=== PATIENT | male | born 1935 | race Caucasian/White ===

== ENCOUNTER 2017-02-25 11:52 | Inpatient (IN) | payer MEDICARE, BC ==
[2017-02-25] MEDS ORDERED: NORMAL SALINE 1000 ML 1,000 ML IV ONE (12:40)
--- NOTE | 2017-02-25 12:40 | ER Document Report ---
ED Cardiac - General Mode of Arrival: Medic Information source: Patient, Relative, Dr. Office - Dr. Rae TRAVEL OUTSIDE OF THE [place] IN LAST 30 DAYS: No - HPI Is the pain a: New problem Similar symptoms previously: No Recently seen / treated by doctor: No <PANCHITO ORTEGA - Last Filed: 02/25/17 12:55> <ASPENLINDA - Last Filed: 02/25/17 15:47> - General Chief Complaint: Irregular Pulse Stated Complaint: IRREGULAR HEART RATE Time Seen by Provider: 02/25/17 12:30 Notes: Patient is an 82 year old male presenting to the emergency department for new onset A-Fib. Patient was diagnosed with a sinus infection by Dr. Rae about a week ago, he was given a prescription Cefdinir which he filled last Wednesday. Patient then started having some lightheadedness and difficulty getting up without help this weekend. Patient had a follow-up appointment with Dr. Rae who discovered he was in A-fib. Patient was sent over the ED from the physician' s office. Patient is not on any blood thinners and takes lots of herbs, vitamins , and supplements. Patient has a history of chronic sinus problems with multiple sinus surgeries. Patient's primary care physician is Dr. Rae. ( PANCHITO ORTEGA) - Related Data Allergies/Adverse Reactions: No Known Allergies Allergy (Unverified 02/25/12 13:37) Past Medical History - General Information source: Patient, Relative - Social History Smoking Status: Former Smoker Cigarette use (# per day): No Chew tobacco use (# tins/day): No Drug Abuse: None Family History: None - Past Medical History Cardiac Medical History: Reports: Hx Atrial Fibrillation - 02/25/17, Hx Congestive Heart Failure, Hx Heart Attack, Hx Hypertension Pulmonary Medical History: Reports: Hx COPD Endocrine Medical History: Reports: Hx Diabetes Mellitus Type 2 Musculoskeltal Medical History: Reports 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 Past Surgical History: Reports: Hx Orthopedic Surgery - Left AKA - Immunizations Hx Diphtheria, Pertussis, Tetanus Vaccination: No <PANCHITO ORTEGA - Last Filed: 02/25/17 12:55> Review of Systems - Review of Systems Constitutional: No symptoms reported EENT: See HPI, Sinus pressure Cardiovascular: See HPI, Dizziness, Lightheaded Respiratory: No symptoms reported Gastrointestinal: No symptoms reported Genitourinary: No symptoms reported Male Genitourinary: No symptoms reported Musculoskeletal: No symptoms reported Skin: No symptoms reported Hematologic/Lymphatic: No symptoms reported Neurological/Psychological: No symptoms reported -: Yes All other systems reviewed and negative <PANCHITO ORTEGA - Last Filed: 02/25/17 12:55> Physical Exam - Vital signs Interpretation: Tachycardic - General General appearance: Appears well, Alert In distress: Mild - HEENT Head: Normocephalic, Atraumatic Eyes: Normal Pupils: PERRL Mucous membranes: Moist - Respiratory Respiratory status: No respiratory distress Chest status: Nontender Breath sounds: Normal Chest palpation: Normal - Cardiovascular Rhythm: Irregularly irregular, Tachycardia Heart sounds: Normal auscultation Murmur: No - Abdominal Inspection: Normal Distension: No distension Bowel sounds: Normal Tenderness: Nontender Organomegaly: No organomegaly - Back Back: Normal, Nontender - Extremities General upper extremity: Normal inspection, Normal ROM, Normal strength General lower extremity: Normal inspection, Normal ROM, Normal strength - Neurological Neuro grossly intact: Yes Cognition: Normal Orientation: AAOx4 [place] Coma Scale Eye Opening: Spontaneous [place] Coma Scale Verbal: Oriented [place] Coma Scale Motor: Obeys Commands [place] Coma Scale Total: 15 Speech: Normal - Psychological Associated symptoms: Normal affect, Normal mood - Skin Skin Temperature: Warm Skin Moisture: Dry <PANCHITO ORTEGA - Last Filed: 02/25/17 12:55> <ASPENLINDA - Last Filed: 02/25/17 15:47> - Vital signs Vitals: Resp 16 02/25/17 11:57 Course - Laboratory Result Diagrams: 02/25/17 14:50 02/25/17 12:44 - Diagnostic Test Radiology reviewed: Image reviewed, Reports reviewed - Chest x-ray is normal - EKG Interpretation by Pa EKG shows normal: Sinus rhythm, [place], QRS Complexes, ST-T Waves. abnormal: Intervals - Borderline prolonged QT interval Rate: Tachycardia - 123 Rhythm: A.Fib [place]/QRS: Left axis deviation When compared to previous EKG there are: Previous EKG unavailable - Consults Dr. Maloney Time consulted: 15:44 Consulted provider: will come to ER <LINDA LOUISE - Last Filed: 02/25/17 15:47> - Vital Signs Vital signs: Temp Pulse Resp BP Pulse Ox 100.0 F 104 H 25 H 114/70 94 02/25/17 11:58 02/25/17 11:58 02/25/17 14:01 02/25/17 14:01 02/25/17 11:58 - Laboratory Laboratory results interpreted by me: 02/25/17 02/25/17 02/25/17 12:44 13:35 14:50 WBC 3.5 L RBC 4.27 L Hgb 13.4 L Plt Count 40 L Seg Neutrophils % 90.3 H Lymphocytes % 5.5 L Absolute Lymphocytes 0.2 L Sodium 129.0 L Chloride 94 L BUN 22 H Direct Bilirubin 0.5 H AST 145 H ALT 90 H Creatine Kinase 393 H Albumin 3.4 L Urine Protein 100 H Urine Ketones TRACE H Urine Ascorbic Acid 40 H Critical Care Note - Critical Care Note Total time excluding time spent on procedures (mins): 35 <LINDA LOUISE - Last Filed: 02/25/17 15:47> Discharge <PANCHITO ORTEGA - Last Filed: 02/25/17 12:55> - Discharge Admitting Provider: Hospitalist Unit Admitted: IMCU <LINDA LOUISE - Last Filed: 02/25/17 15:47> - Discharge Clinical Impression: Atrial fibrillation, new onset, Atrial fibrillation with rapid ventricular response, Thrombocytopenia Hypotension Qualifiers: Hypotension type: unspecified hypotension type Qualified Code(s): I95.9 - Hypotension, unspecified Condition: Stable Disposition: ADMITTED INPATIENT Referrals: BREANNE RAE MD [Primary Care Provider] - Follow up as needed Scribe Attestation: 02/25/17 15:47 I personally performed the services described in the documentation, reviewed and edited the documentation which was dictated to the scribe in my presence, and it accurately records my words and actions. (LINDA LOUISE) Scribe Documentation - Scribe Written by Gay:: Gay Whaley, 02/25/17 12:57 acting as scribe for :: Aspen <PANCHITO ORTEGA - Last Filed: 02/25/17 12:55>
[2017-02-25] MEDS ORDERED: PANTOPRAZOLE SODIUM 40 MG VIAL IV ONE (12:42)
[2017-02-25 13:18] LABS: ALANINE AMINOTRANSFERASE 90 U/L (21-72); ALBUMIN 3.4 g/dL (3.5-5.0); ALKALINE PHOSPHATASE 74 U/L (38-126); ANION GAP 13 (5-19); ASPARTATE AMINO TRANSFERASE 145 U/L (17-59); BILIRUBIN,DIRECT 0.5 mg/dL (0.0-0.4); BILIRUBIN,TOTAL 0.8 mg/dL (0.2-1.3); BLOOD UREA NITROGEN 22 mg/dL (7-20); CARBON DIOXIDE 22 mmol/L (22-30); CHLORIDE 94 mmol/L (98-107); CREATINE KINASE 393 U/L (55-170); CREATININE RESULT 0.87 mg/dL (0.52-1.25); GLUCOSE 94 mg/dL (75-110); POTASSIUM 3.9 mmol/L (3.6-5.0); TOTAL PROTEIN 6.6 g/dL (6.3-8.2)
--- NOTE | 2017-02-25 13:43 | RADIOLOGY REPORT (SQ) ---
EXAM DESCRIPTION: CHEST SINGLE VIEW COMPLETED DATE/TIME: 02/25/2017 1:36 pm REASON FOR STUDY: new onset A-fib COMPARISON: 03/03/2009 EXAM PARAMETERS: NUMBER OF VIEWS: One view. TECHNIQUE: Single frontal radiographic view of the chest acquired. RADIATION DOSE: NA LIMITATIONS: None. FINDINGS: LUNGS AND PLEURA: No opacities, masses or pneumothorax. No pleural effusion. MEDIASTINUM AND HILAR STRUCTURES: No masses. Contour normal. HEART AND VASCULAR STRUCTURES: Heart normal in size. Normal vasculature. BONES: No acute findings. HARDWARE: None in the chest. OTHER: No other significant finding. IMPRESSION: NO ACUTE RADIOGRAPHIC FINDING IN THE CHEST. TECHNICAL DOCUMENTATION: JOB ID: [id number]
[2017-02-25 13:49] LABS: CREATINE KINASE MB 0.66 ng/mL (<4.55)
[2017-02-25 13:52] LABS: TROPONIN I 0.047 ng/mL
[2017-02-25 13:57] LABS: APPEARANCE,URINE CLOUDY; BILIRUBIN,URINE NEGATIVE (NEGATIVE); GLUCOSE, URINE NEGATIVE (NEGATIVE); KETONES,URINE TRACE mg/dL (NEGATIVE); LEUKOCYTE ESTERASE,URINE NEGATIVE (NEGATIVE); NITRITE,URINE NEGATIVE (NEGATIVE); PROTEIN,URINE 100 mg/dL (NEGATIVE); URINE SPECIFIC GRAVITY 1.025; UROBILINOGEN,URINE NEGATIVE mg/dL (<2.0)
[2017-02-25] MEDS ORDERED: RINGERS SOLUTION,LACTATED 1,000 ML IV ONE (14:22)
[2017-02-25] MEDS ORDERED: DILTIAZEM HCL INJ 25 MG/5 ML VIAL IV ONE (15:03)
[2017-02-25] MEDS ORDERED: DILTIAZEM HCL/D5W 125 ML IV PRN ×2 (15:04→17:59)
[2017-02-25 15:07] LABS: ABSOLUTE LYMPHOCYTES (AUTO) 0.2 10^3/uL (0.5-4.7); ABSOLUTE MONOCYTES (AUTO) 0.1 10^3/uL (0.1-1.4); ABSOLUTE NEUT (AUTO) 3.2 10^3/uL (1.7-8.2); BASOPHILS % (AUTO) 0.1 % (0-2); HEMATOCRIT 40.2 % (37.9-51.0); HEMOGLOBIN 13.4 g/dL (13.5-17.0); LYMPHOCYTES % (AUTO) 5.5 % (13-45); MEAN CORPUSCULAR HEMOGLOBIN 31.4 pg (27.0-33.4); MEAN CORPUSCULAR HGB CONC 33.4 g/dL (32.0-36.0); MEAN CORPUSCULAR VOLUME 94 fl (80-97); MONOCYTES % (AUTO) 4.1 % (3-13); RED BLOOD COUNT 4.27 10^6/uL (4.35-5.55); RED CELL DISTRIBUTION WIDTH 12.9 % (11.5-14.0); SEGMENTED NEUTROPHILS % (AUTO) 90.3 % (42-78); WHITE BLOOD COUNT 3.5 10^3/uL (4.0-10.5)
[2017-02-25] MEDS ORDERED: ACETAMINOPHEN 325 MG TABLET ONE (17:02)
[2017-02-25 17:16] LABS: HEMATOCRIT 38.7 % (37.9-51.0); HGB HCT DIFFERENCE 0.3; MEAN CORPUSCULAR HEMOGLOBIN 31.5 pg (27.0-33.4); MEAN CORPUSCULAR HGB CONC 33.6 g/dL (32.0-36.0); MEAN CORPUSCULAR VOLUME 94 fl (80-97); RED BLOOD COUNT 4.13 10^6/uL (4.35-5.55); RED CELL DISTRIBUTION WIDTH 12.5 % (11.5-14.0); WHITE BLOOD COUNT 3.3 10^3/uL (4.0-10.5)
[2017-02-25] MEDS ORDERED: NORMAL SALINE 1000 ML 1,000 ML IV PRN (17:44)
[2017-02-25] MEDS ORDERED: LEVALBUTEROL HCL NEB 1.25 MG/3 ML AMPUL NEB PRN (17:44)
[2017-02-25] MEDS ORDERED: ONDANSETRON HCL INJ/PF 4 MG/2 ML SDV IV PRN (17:52)
[2017-02-25] MEDS ORDERED: FONDAPARINUX SODIUM INJ 2.5 MG/0.5 ML DISP.SYRIN SUBCUT ONE (18:15)
[2017-02-25] MEDS ORDERED: DOXYCYCLINE HYCLATE INJ 100 MG VIAL IV SCH (18:15)
--- NOTE | 2017-02-25 18:21 | PDOC H&P ---
History of Present Illness Admission Date/PCP: 02/25/17 16:22 BREANNE ALY MD Patient complains of: Atrial fibrillation with rapid ventricular response History of Present Illness: JUDIE MOORE JR is a 82 year old male, with no significant past medical history who has been sick with sinus infection for the past week or so seen by primary care physician and given Omnicef. Symptoms include sinus congestion and minimal cough with some sinus pressure and headache. There is associated fever and chills but no chest congestion or shortness of breath. Family reports however that her breathing is fast about a week ago prior to antibiotic administration. The patient took the antibiotic and the sinus congestion improved and eventually resolved however the patient remains to be generally weak with lightheadedness especially upon standing. Denies any chest pain at all neurosyncope. No focal weakness nor any nausea or vomiting abdominal pain or diarrhea dysuria urgency or frequency. The patient was seen by EMS yesterday reportedly because spouse was concerned but the patient refused to go to the hospital. They were told that his heart rate was irregular at that time. Therefore an appointment was made with his primary care physician saw him in atrial fibrillation and was then sent to the hospital 2 L of IV fluid was infused, and Cardizem was started intravenously. Patient was having fever of 103 as well. He was then referred for admission. Past Medical History Cardiac Medical History: Denies: Coronary Artery Disease Pulmonary Medical History: Denies: Asthma, Bronchitis, Pneumonia Neurological Medical History: Denies: Seizures GI Medical History: Reports: Other - Diverticulosis Musculoskeltal Medical History: Reports: Arthritis - controlled in right shoulder Hematology: Denies: Anemia Infectious Medical History: Reports: Other - Recurrent sinusitis Past Surgical History Past Surgical History: Reports: Other - Abdominal surgery for ruptured peptic ulcer disease and multiple sinus surg Denies: Pacemaker Social History Information Source: Patient Smoking Status: Former Smoker Frequency of Alcohol Use: None Hx Recreational Drug Use: No Drugs: None Family History Family History: None Parental Family History Reviewed: Yes Children Family History Reviewed: Yes Sibling(s) Family History Reviewed.: Yes Medication/Allergy Home Medications: Cefdinir [Omnicef 300 mg Capsule] 300 mg PO Q12 02/25/17 Allergies/Adverse Reactions: No Known Allergies Allergy (Unverified 02/25/12 13:37) Review of Systems Constitutional: PRESENT: chills, fever(s), weakness - Generalized. ABSENT: headache(s), night sweats, weight gain, weight loss Eyes: ABSENT: visual disturbances Ears: ABSENT: hearing changes Nose, Mouth, and Throat: ABSENT: mouth pain, sore throat Cardiovascular: PRESENT: dyspnea on exertion. ABSENT: chest pain, edema, orthropnea, palpitations Respiratory: ABSENT: cough, dyspnea, hemoptysis, sputum Gastrointestinal: ABSENT: abdominal pain, constipation, diarrhea, hematemesis, hematochezia, melena, nausea, vomiting Genitourinary: ABSENT: dysuria, hematuria Musculoskeletal: ABSENT: joint swelling Integumentary: PRESENT: pruritus - On the abdominal wall, rash - On the abdominal wall. ABSENT: wounds Neurological: PRESENT: confusion - Mild according to the family. ABSENT: abnormal gait, abnormal speech, dizziness, focal weakness, syncope Psychiatric: ABSENT: anxiety, depression, homidical ideation, suicidal ideation Endocrine: ABSENT: cold intolerance, heat intolerance, polydipsia, polyuria Hematologic/Lymphatic: ABSENT: easy bleeding, easy bruising Physical Exam Vital Signs: Temp Pulse Resp BP Pulse Ox 97.6 F 91 19 120/88 H 97 02/25/17 17:58 02/25/17 17:58 02/25/17 17:58 02/25/17 17:58 02/25/17 17:58 Intake & Output 02/24/17 02/25/17 02/26/17 06:59 06:59 06:59 Weight 85.2 kg General appearance: PRESENT: no acute distress, cooperative, well-developed, well-nourished Head exam: PRESENT: atraumatic, normocephalic Eye exam: PRESENT: conjunctiva pink, EOMI, PERRLA. ABSENT: scleral icterus Ear exam: PRESENT: normal external ear exam. ABSENT: drainage Mouth exam: PRESENT: dry mucosa, neck supple, tongue midline Throat exam: ABSENT: post pharyngeal erythema, tonsillar erythema Neck exam: ABSENT: carotid bruit, JVD, lymphadenopathy, thyromegaly Respiratory exam: PRESENT: clear to auscultation madi. ABSENT: rales, rhonchi, wheezes Cardiovascular exam: PRESENT: irregular rhythm, tachycardia. ABSENT: diastolic murmur, gallop, rubs, systolic murmur Pulses: PRESENT: normal dorsalis pedis pul Vascular exam: PRESENT: normal capillary refill GI/Abdominal exam: PRESENT: normal bowel sounds, soft. ABSENT: distended, guarding, mass, organolmegaly, rebound, tenderness Rectal exam: PRESENT: deferred Extremities exam: PRESENT: full ROM. ABSENT: calf tenderness, clubbing, pedal edema Neurological exam: PRESENT: alert, awake, oriented to person, oriented to place , oriented to time, oriented to situation, CN II-XII grossly intact. ABSENT: motor sensory deficit Psychiatric exam: PRESENT: appropriate affect, normal mood. ABSENT: homicidal ideation, suicidal ideation Skin exam: PRESENT: dry, intact, rash - 2 about 4 cm circumferential rash noted on the abdominal wall that is a equal distribution in color with some midline induration and scaling, warm. ABSENT: cyanosis Results Laboratory Results: 02/25/17 16:58 02/25/17 16:58 WBC 3.3 L RBC 4.13 L Hgb 13.0 L Hct 38.7 MCV 94 MCH 31.5 MCHC 33.6 RDW 12.5 Plt Count 41 L Impressions: Chest X-Ray 02/25/17 12:40 IMPRESSION: NO ACUTE RADIOGRAPHIC FINDING IN THE CHEST. Assessment & Plan - Diagnosis (1) Atrial fibrillation with rapid ventricular response Is this a current diagnosis for this admission?: Yes (2) Thrombocytopenia Is this a current diagnosis for this admission?: Yes (3) Hyponatremia Is this a current diagnosis for this admission?: Yes (4) Fever Qualifiers: Fever type: unspecified Qualified Code(s): R50.9 - Fever, unspecified Is this a current diagnosis for this admission?: Yes (5) Abnormal urinalysis Is this a current diagnosis for this admission?: Yes (6) Diverticulosis Qualifiers: Diverticulosis site: unspecified location Diverticulosis bleeding: diverticulosis without bleeding Qualified Code(s): K57.90 - Diverticulosis of intestine, part unspecified, without perforation or abscess without bleeding Is this a current diagnosis for this admission?: Yes (7) Chronic sinusitis Qualifiers: Sinusitis location: unspecified location Qualified Code(s): J32.9 - Chronic sinusitis, unspecified Is this a current diagnosis for this admission?: Yes - Time Time Spent: 50 to 70 Minutes - Inpatient Certification Based on my medical assessment, after consideration of the patient's comorbidities, presenting symptoms, or acuity I expect that the services needed warrant INPATIENT care.: Yes I certify that my determination is in accordance with my understanding of Medicare's requirements for reasonable and necessary INPATIENT services [42 CFR 412.3e].: Yes Medical Necessity: Need For IV Fluids, Need For Continuous Telemetry Monitoring , Need for IV Antibiotics 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 We will hydrate the patient with normal saline. In the meantime I will begin the patient on intravenous doxycycline obtain cultures of the blood and urine. We will likewise obtain titers for [place] spotted fever as well as Lyme disease. We will continue the Cardizem drip and begin the patient on oral Cardizem. Obtain echocardiogram in the morning. DVT prophylaxis with Arixtra and monitor platelet count. We will consult hematology for further evaluation of thrombocytopenia. Further testing depends on the initial evaluations outlined above.
[2017-02-25 19:32] LABS: PROTHROMBIN TIME 15.4 SEC (11.4-15.4)
[2017-02-25 19:38] LABS: FREE T3 1.92 pg/mL (2.77-5.27)
[2017-02-25] MEDS: DILTIAZEM HCL 30 MG TABLET PO SCH ×2 (19:39→23:23)
[2017-02-25] MEDS: DOCUSATE SODIUM 100 MG CAPSULE PO SCH (19:39)
[2017-02-25] MEDS: DOXYCYCLINE HYCLATE 100 MG in DEXTROSE 5%-WATER 250 ML IV SCH (21:13)
--- NOTE | 2017-02-25 23:21 | RADIOLOGY REPORT (SQ) ---
EXAM DESCRIPTION: NM LUNG VENT/PERF SCAN COMPLETED DATE/TIME: 02/25/2017 11:13 pm REASON FOR STUDY: elev d dimer COMPARISON: None. RADIONUCLIDE AND DOSE: 5.38 millicuries TC-99m MAA Intravenous 32.0 millicuries TC-99m DTPA Inhaled aerosol TECHNIQUE: Eight views of the lungs acquired post ventilation of DTPA aerosol. Eight matching views of the lungs acquired following injection of MAA. LIMITATIONS: None. FINDINGS: VENTILATION: Symmetric and homogeneous distribution of DTPA aerosol during ventilatory pha se. No significant areas of photopenia. PERFUSION: Perfusion images with normal homogenous activity and no wedge-shaped or segmental defects. No ventilation-perfusion mismatches. OTHER: No other significant finding. IMPRESSION: NORMAL VENTILATION-PERFUSION LUNG SCAN. NEGATIVE FOR PULMONARY EMBOLI. TECHNICAL DOCUMENTATION: JOB ID: [id number] [employer]- All Rights Reserved
[2017-02-26 04:56] LABS: ANION GAP 9 (5-19); BLOOD UREA NITROGEN 18 mg/dL (7-20); CALCIUM 8.4 mg/dL (8.4-10.2); CARBON DIOXIDE 24 mmol/L (22-30); CHLORIDE 96 mmol/L (98-107); GLUCOSE 95 mg/dL (75-110); POTASSIUM 3.6 mmol/L (3.6-5.0); SODIUM 129.3 mmol/L (137-145)
[2017-02-26 04:58] LABS: ABSOLUTE LYMPHOCYTES (AUTO) 0.2 10^3/uL (0.5-4.7); ABSOLUTE MONOCYTES (AUTO) 0.2 10^3/uL (0.1-1.4); ABSOLUTE NEUT (AUTO) 2.5 10^3/uL (1.7-8.2); BASOPHILS % (AUTO) 0.3 % (0-2); HEMATOCRIT 36.9 % (37.9-51.0); HEMOGLOBIN 12.6 g/dL (13.5-17.0); HGB HCT DIFFERENCE 0.9; LYMPHOCYTES % (AUTO) 5.8 % (13-45); MEAN CORPUSCULAR HEMOGLOBIN 31.8 pg (27.0-33.4); MEAN CORPUSCULAR HGB CONC 34.1 g/dL (32.0-36.0); MEAN CORPUSCULAR VOLUME 93 fl (80-97); MONOCYTES % (AUTO) 5.3 % (3-13); RED BLOOD COUNT 3.96 10^6/uL (4.35-5.55); RED CELL DISTRIBUTION WIDTH 12.4 % (11.5-14.0); SEGMENTED NEUTROPHILS % (AUTO) 88.6 % (42-78); WHITE BLOOD COUNT 2.8 10^3/uL (4.0-10.5)
[2017-02-26] MEDS: LANSOPRAZOLE 30 MG TAB.RAP.DR PO SCH (05:19)
[2017-02-26] MEDS: DILTIAZEM HCL 30 MG TABLET PO SCH ×4 (05:19→23:59)
[2017-02-26] MEDS ORDERED: ENOXAPARIN SODIUM INJ 40 MG/0.4 ML DISP.SYRIN SUBCUT SCH (08:00)
--- NOTE | 2017-02-26 08:23 | PDOC PROGRESS REPORT ---
Subjective Progress Note for:: 02/26/17 Subjective:: Patient denies any complaints at this time. Denies any shortness of breath or chest pain. Denies chills or fever. Denies PND orthopnea. No nausea or vomiting. Physical Exam Vital Signs: Temp Pulse Resp BP Pulse Ox 97.4 F 116 H 21 H 120/66 95 02/26/17 04:00 02/26/17 04:00 02/26/17 04:00 02/26/17 04:00 02/26/17 04:00 Intake & Output 02/25/17 02/26/17 02/27/17 06:59 06:59 06:59 Intake Total 1271 Output Total 450 Balance 821 Weight 83.6 kg General appearance: PRESENT: no acute distress, cooperative Head exam: PRESENT: normocephalic Eye exam: PRESENT: EOMI Mouth exam: PRESENT: moist, neck supple Neck exam: ABSENT: JVD Respiratory exam: PRESENT: clear to auscultation madi. ABSENT: rhonchi, wheezes Cardiovascular exam: PRESENT: irregular rhythm, systolic murmur - Left sternal border. ABSENT: gallop GI/Abdominal exam: PRESENT: soft. ABSENT: distended, tenderness Extremities exam: ABSENT: pedal edema Neurological exam: PRESENT: alert, awake, oriented to situation Skin exam: PRESENT: dry, warm. ABSENT: cyanosis Results Laboratory Results: 02/26/17 04:11 02/26/17 04:11 02/25/17 02/26/17 02/26/17 18:47 04:11 04:11 WBC 2.8 L RBC 3.96 L Hgb 12.6 L Hct 36.9 L MCV 93 MCH 31.8 MCHC 34.1 RDW 12.4 Plt Count 31 L Seg Neutrophils % 88.6 H Lymphocytes % 5.8 L Monocytes % 5.3 Eosinophils % 0.0 Basophils % 0.3 Absolute Neutrophils 2.5 Absolute Lymphocytes 0.2 L Absolute Monocytes 0.2 Absolute Eosinophils 0.0 Absolute Basophils 0.0 Sodium 129.3 L Potassium 3.6 Chloride 96 L Carbon Dioxide 24 Anion Gap 9 BUN 18 Creatinine 0.70 Est GFR ( Amer) > 60 Est GFR (Non-Af Amer) > 60 Glucose 95 Calcium 8.4 Free T4 1.66 Free T3 pg/mL 1.92 L Impressions: Chest X-Ray 02/25/17 12:40 IMPRESSION: NO ACUTE RADIOGRAPHIC FINDING IN THE CHEST. Lung Scan-VQ NM 02/25/17 21:43 IMPRESSION: NORMAL VENTILATION-PERFUSION LUNG SCAN. NEGATIVE FOR PULMONARY EMBOLI. Assessment & Plan - Diagnosis (1) Atrial fibrillation with rapid ventricular response Is this a current diagnosis for this admission?: Yes (2) Thrombocytopenia Is this a current diagnosis for this admission?: Yes (3) Hyponatremia Is this a current diagnosis for this admission?: Yes (4) Fever Qualifiers: Fever type: unspecified Qualified Code(s): R50.9 - Fever, unspecified Is this a current diagnosis for this admission?: Yes (5) Abnormal urinalysis Is this a current diagnosis for this admission?: Yes (6) Diverticulosis Qualifiers: Diverticulosis site: unspecified location Diverticulosis bleeding: diverticulosis without bleeding Qualified Code(s): K57.90 - Diverticulosis of intestine, part unspecified, without perforation or abscess without bleeding Is this a current diagnosis for this admission?: Yes (7) Chronic sinusitis Qualifiers: Sinusitis location: unspecified location Qualified Code(s): J32.9 - Chronic sinusitis, unspecified Is this a current diagnosis for this admission?: Yes - Time Time Spent with patient: 25-34 minutes - Plan Summary Plan Summary: Consult cardiology for atrial fibrillation. Consult hematology for thrombocytopenia. We will continue to monitor. In the meantime I will hold the aspirin, increase her Cardizem and continue IV hydration. D-dimer was elevated but VQ scan was negative. We will obtain fibrin degradation products as well as fibrinogen. We will likewise obtain a lactic acid level.
--- NOTE | 2017-02-26 08:41 | PDOC CONSULTATION ---
Consultation Consult Date: 02/26/17 Attending physician:: ANNMARIE BARNES Consult reason:: Pancytopenia History of Present Illness Admission Date/PCP: 02/25/17 17:44 BREANNE ALY MD Patient complains of: Pancytopenia History of Present Illness: 82-year-old male with history of known cirrhosis, history of heavy alcohol abuse , who presents with fevers, also tic bite, and is currently on doxycycline in the hospital. He has had pancytopenia with a white count of 2.8, hemoglobin 13 , platelets today are 31. He is not actively bleeding. He has been on anticoagulation with aspirin as well as Arixtra here, but given the platelet count dropped we have told nursing to discontinue that. He is a poor historian , does not really remember all that much. He does seem a little bit confused today. I recommended nursing talk to hospitalist team about sending an ammonia level. 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 Hematology: Denies: Anemia Infectious Medical History: Reports: Other - Recurrent sinusitis Past Surgical History Past Surgical History: Reports: Orthopedic Surgery - Left AKA, Other - Abdominal surgery for ruptured peptic ulcer disease and multiple sinus surg Denies: Pacemaker Social History Information Source: [facility]LY [facility], [facility] Records Smoking Status: Former Smoker Last Time Smoked: 09/27/1986 Frequency of Alcohol Use: Occasional Hx Recreational Drug Use: No Drugs: None Hx Prescription Drug Abuse: No Family History Family History: None Parental Family History Reviewed: Yes Children Family History Reviewed: Yes Sibling(s) Family History Reviewed.: Yes Medication/Allergy Home Medications: Cefdinir [Omnicef 300 mg Capsule] 300 mg PO Q12 02/25/17 Allergies/Adverse Reactions: No Known Allergies Allergy (Unverified 02/25/12 13:37) Review of Systems Constitutional: ABSENT: chills, fever(s), headache(s), weight gain, weight loss Eyes: ABSENT: visual disturbances Ears: ABSENT: hearing changes Cardiovascular: ABSENT: chest pain, dyspnea on exertion, edema, orthropnea, palpitations Respiratory: ABSENT: cough, hemoptysis Gastrointestinal: ABSENT: abdominal pain, constipation, diarrhea, hematemesis, hematochezia, nausea, vomiting Genitourinary: ABSENT: dysuria, hematuria Musculoskeletal: ABSENT: joint swelling Integumentary: ABSENT: rash, wounds Neurological: ABSENT: abnormal gait, abnormal speech, confusion, dizziness, focal weakness, syncope Psychiatric: ABSENT: anxiety, depression, homidical ideation, suicidal ideation Endocrine: ABSENT: cold intolerance, heat intolerance, polydipsia, polyuria Hematologic/Lymphatic: ABSENT: easy bleeding, easy bruising Physical Exam Vital Signs: Temp Pulse Resp BP Pulse Ox 99.0 F 118 H 18 124/65 97 02/26/17 07:51 02/26/17 07:51 02/26/17 07:51 02/26/17 07:51 02/26/17 07:51 Intake & Output 02/25/17 02/26/17 02/27/17 06:59 06:59 06:59 Intake Total 1271 Output Total 450 Balance 821 Weight 83.6 kg General appearance: PRESENT: no acute distress, well-developed, well-nourished Head exam: PRESENT: atraumatic, normocephalic Eye exam: PRESENT: conjunctiva pink, EOMI, PERRLA. ABSENT: scleral icterus Ear exam: PRESENT: normal external ear exam Mouth exam: PRESENT: moist, tongue midline Neck exam: ABSENT: carotid bruit, JVD, lymphadenopathy, thyromegaly Respiratory exam: PRESENT: clear to auscultation madi. ABSENT: rales, rhonchi, wheezes Cardiovascular exam: PRESENT: RRR. ABSENT: diastolic murmur, rubs, systolic murmur Pulses: PRESENT: normal dorsalis pedis pul Vascular exam: PRESENT: normal capillary refill GI/Abdominal exam: PRESENT: normal bowel sounds, soft. ABSENT: distended, guarding, mass, organolmegaly, rebound, tenderness Rectal exam: PRESENT: deferred Extremities exam: PRESENT: full ROM. ABSENT: calf tenderness, clubbing, pedal edema Neurological exam: PRESENT: alert, awake, oriented to person, oriented to place , oriented to time, oriented to situation, CN II-XII grossly intact. ABSENT: motor sensory deficit Psychiatric exam: PRESENT: appropriate affect, normal mood. ABSENT: homicidal ideation, suicidal ideation Skin exam: PRESENT: dry, intact, warm. ABSENT: cyanosis, rash Results Laboratory Results: 02/26/17 04:11 02/26/17 04:11 02/25/17 02/26/17 02/26/17 18:47 04:11 04:11 WBC 2.8 L RBC 3.96 L Hgb 12.6 L Hct 36.9 L MCV 93 MCH 31.8 MCHC 34.1 RDW 12.4 Plt Count 31 L Seg Neutrophils % 88.6 H Lymphocytes % 5.8 L Monocytes % 5.3 Eosinophils % 0.0 Basophils % 0.3 Absolute Neutrophils 2.5 Absolute Lymphocytes 0.2 L Absolute Monocytes 0.2 Absolute Eosinophils 0.0 Absolute Basophils 0.0 Sodium 129.3 L Potassium 3.6 Chloride 96 L Carbon Dioxide 24 Anion Gap 9 BUN 18 Creatinine 0.70 Est GFR ( Amer) > 60 Est GFR (Non-Af Amer) > 60 Glucose 95 Calcium 8.4 Free T4 1.66 Free T3 pg/mL 1.92 L Impressions: Chest X-Ray 02/25/17 12:40 IMPRESSION: NO ACUTE RADIOGRAPHIC FINDING IN THE CHEST. Lung Scan-VQ NM 02/25/17 21:43 IMPRESSION: NORMAL VENTILATION-PERFUSION LUNG SCAN. NEGATIVE FOR PULMONARY EMBOLI. Assessment & Plan - Diagnosis (1) Pancytopenia Is this a current diagnosis for this admission?: YesPlan: Most likely related to cirrhosis, but also mild DIC may be possibility, at this point patient is not having active bleeding so hold on any platelet transfusion. If the platelets drop below 20 I will go ahead and order platelet transfusion. We have discontinued anticoagulation and they should remain off until platelet count gets up to 50. We will monitor. If ANC gets under 100 we will start him on growth factor support. - Time Time Spent: Greater than 70 Minutes Critical Time spent with patient: 35 or more minutes - Inpatient Certification Based on my medical assessment, after consideration of the patient's comorbidities, presenting symptoms, or acuity I expect that the services needed warrant INPATIENT care.: Yes I certify that my determination is in accordance with my understanding of Medicare's requirements for reasonable and necessary INPATIENT services [42 CFR 412.3e].: Yes Medical Necessity: Need For IV Fluids, Need For Continuous Telemetry Monitoring , Need for IV Antibiotics
--- NOTE | 2017-02-26 08:55 | EKG REPORT ---
SEVERITY:- ABNORMAL ECG - ATRIAL FIBRILLATION, V-RATE 77-163 LEFT AXIS DEVIATION BORDERLINE PROLONGED QT INTERVAL : Confirmed by: Kee Levin 26-Feb-2017 08:55:07
--- NOTE | 2017-02-26 08:55 | EKG REPORT ---
SEVERITY:- ABNORMAL ECG - ATRIAL FIBRILLATION, V-RATE 86-203 LEFT ANTERIOR FASCICULAR BLOCK BORDERLINE T ABNORMALITIES, ANT-LAT LEADS : Confirmed by: Kee Levin 26-Feb-2017 08:54:59
[2017-02-26] MEDS ORDERED: ASPIRIN 325 MG TABLET PO SCH (10:00)
[2017-02-26] MEDS ORDERED: FONDAPARINUX SODIUM INJ 2.5 MG/0.5 ML DISP.SYRIN SUBCUT SCH (10:00)
[2017-02-26] MEDS: DOCUSATE SODIUM 100 MG CAPSULE PO SCH ×2 (10:12→18:26)
[2017-02-26] MEDS: DOXYCYCLINE HYCLATE 100 MG in DEXTROSE 5%-WATER 250 ML IV SCH ×2 (10:13→21:02)
[2017-02-26] MEDS ORDERED: DILTIAZEM HCL INJ 25 MG/5 ML VIAL IV PRN (11:12)
--- NOTE | 2017-02-26 13:02 | PDOC CONSULTATION ---
Consultation Consult Date: 02/26/17 Attending physician:: ANNMARIE BARNES Consult reason:: Atrial fibrillation History of Present Illness Admission Date/PCP: 02/25/17 17:44 BREANNE ALY MD Patient complains of: Disorientation History of Present Illness: 82-year-old male with history of known cirrhosis, history of heavy alcohol abuse , who presents with fevers, also tic bite, and is currently on doxycycline in the hospital. Patient could not give any history therefore history was supplemented by talking to patients . It seems several days ago patient had a episode of disorientation and confusion. His symptoms were very similar to those symptoms which he had during a previous episode of septic shock. His called the EMT but he refused to go to the hospital. Patient subsequently went in to see his external relations director and was diagnosed to have sinusitis. Some lab work was performed which came back abnormal and patient was advised to get admitted through the emergency department. Patient while being monitored is noted to be in Atrial fibrillation with rapid ventricular response. He was treated initially with Iv cardiazem and was switched over to PO cardiazem. Patient denied any chest pain, shortness of breath, PND, orthopnea, Dizziness, syncope, near syncope. His subsequent bloodwork showed pancytopenia with a white count of 2.8, hemoglobin 13, platelets today are 31. He is not actively bleeding. He has been on anticoagulation with aspirin as well as Arixtra which was then discontinued. I've been asked to evaluate him because of Atrial fibrillation, which is presumably knew but could have been going on for last several weeks. 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 Hx Recreational Drug Use: No Drugs: None Hx Prescription Drug Abuse: No - Advance Directive Resuscitation Status: Full Code Surrogate healthcare decision maker:: Patient's is the surrogate decision-maker Family History Family History: None, Reviewed & Not Pertinent Parental Family History Reviewed: Yes Children Family History Reviewed: Yes Sibling(s) Family History Reviewed.: Yes Medication/Allergy Home Medications: Cefdinir [Omnicef 300 mg Capsule] 300 mg PO Q12 02/25/17 Allergies/Adverse Reactions: No Known Allergies Allergy (Unverified 02/25/12 13:37) Review of Systems Review of Systems: Constitutional: (+)fever, (-)night sweats, (-)chills, (+)fatigue, (-)daytime somnelence, (-)anorexia Eyes: (-)loss of vision, (-)diplopia, (-)eye redness, (-)eye pain, (-)purulent discharge Ears: (-)hearing loss, (-)ear pain/ear ache, (-)ear drainage Nose: (+)nasal congestion, (-)nasal discharge, (-)epistaxis, (+)snoring Mouth/Throat/Voice: (-)mouth sores, (-)tongue sores, (-)dysphagia, (-) odynophagia, (-)gum bleeding Neck: (-)neck stiffness, (-)neck lumps, (-)neck swelling Respiratory: (+)dyspnea, (-)cough, (-)cough productive of sputum, (-)hemoptysis , (-)wheezing Cardiovascular: (-)chest pain, (-)palpitations, (-)dyspnea at rest, (+)dyspnea with activity, (-)orthopnea, (-)paroxysmal nocturnal dyspnea, (-)lower extremity edema Gastrointestinal: (-)abdominal pain, (-)vomiting blood, (-)fecal incontinence, ( -)elyse-colored stools, (-)tarry stools Urinary: (-)dysuria, (-)hematuria, (-)increased nighttime urination Dermatologic/Integumentary: (-)dry skin, (-)rash, (-)bruising, (-)new mole(s) Musculoskeletal: (-)muscle weakness, (-)decreased muscle strength, (-)limb paralysis Neurological: (-)headaches, (-)fainting, (-)blackout(s), (-)lack of coordination , (-)difficulty speaking, (+)confusion Psychiatric: (-)sadness interfering with function, (+)sleep disturbance, (-) suicidal ideation, (-)delusions, (-)hallucinations Hematologic/Lymphatic: (-)easy bruising, (-)difficulty stopping blood flow, (-) lymph node enlargement, (-)lymph node tenderness Physical Exam Vital Signs: Temp Pulse Resp BP Pulse Ox 99.0 F 118 H 18 124/65 97 02/26/17 07:51 02/26/17 07:51 02/26/17 07:51 02/26/17 07:51 02/26/17 09:12 Intake & Output 02/25/17 02/26/17 02/27/17 06:59 06:59 06:59 Intake Total 1271 Output Total 450 Balance 821 Weight 83.6 kg Exam: GEN: NAD, patient alert oriented x3. Appearance and grooming WNL HEENT : Eyes: YAMIL, Ears: No significant abnormalities, Nose: No significant abnormalities. normocephalic atraumatic. ORAL : Mallampati class III, highly arched palate (-) Tonsils: Not enlarged. NECK: no thyromegaly, no masses, trachea is central, JVD is not elevated, carotids are 2+ with bruit (-) RESP: lungs clear to auscultation bilaterally, no rales, wheezes or rhonchi., nonlabored, no use of accessory muscles of respiration CV: NL S1 and S2. 2/6 ejection systolic murmur noted in the aortic area and left sternal border. 1/6 pansystolic murmur noted at the apex. no S3, no S4 noted. No rub noted., gallops, rubs, clicks GI: abd NT to palpation, no masses, bowel sounds present, no guarding or rigidity noted. EXT: no clubbing, (-) cyanosis, edema (-), perpheral pulses diminished (+) MUSC/SKEL: no acute joint swelling noted. Muscle strength is generally intact. NEURO: no tremors. no significant focal neurological deficits are noted., sensation grossly intact, AO x 3 PSYCH: NL mood and affect. judgment and insight noted to be intact.. SKIN: (+) rash, (-)Signs of pruritus, (-) other significant abnormality, rash - 2 about 4 cm circumferential rash noted on the abdominal wall that is a equal distribution in color with some midline induration and scaling, warm. Results Laboratory Results: 02/26/17 04:11 02/26/17 04:11 02/25/17 02/26/17 02/26/17 18:47 04:11 04:11 WBC 2.8 L RBC 3.96 L Hgb 12.6 L Hct 36.9 L MCV 93 MCH 31.8 MCHC 34.1 RDW 12.4 Plt Count 31 L Seg Neutrophils % 88.6 H Lymphocytes % 5.8 L Monocytes % 5.3 Eosinophils % 0.0 Basophils % 0.3 Absolute Neutrophils 2.5 Absolute Lymphocytes 0.2 L Absolute Monocytes 0.2 Absolute Eosinophils 0.0 Absolute Basophils 0.0 Sodium 129.3 L Potassium 3.6 Chloride 96 L Carbon Dioxide 24 Anion Gap 9 BUN 18 Creatinine 0.70 Est GFR ( Amer) > 60 Est GFR (Non-Af Amer) > 60 Glucose 95 Lactic Acid Calcium 8.4 Free T4 1.66 Free T3 pg/mL 1.92 L 02/26/17 08:41 WBC RBC Hgb Hct MCV MCH MCHC RDW Plt Count Seg Neutrophils % Lymphocytes % Monocytes % Eosinophils % Basophils % Absolute Neutrophils Absolute Lymphocytes Absolute Monocytes Absolute Eosinophils Absolute Basophils Sodium Potassium Chloride Carbon Dioxide Anion Gap BUN Creatinine Est GFR ( Amer) Est GFR (Non-Af Amer) Glucose Lactic Acid 2.2 H Calcium Free T4 Free T3 pg/mL EKG Comments: Showed Atrial fibrillation, rapid ventricular response, no acute ST-T Wave changes noted. Impressions: Chest X-Ray 02/25/17 12:40 IMPRESSION: NO ACUTE RADIOGRAPHIC FINDING IN THE CHEST. Lung Scan-VQ NM 02/25/17 21:43 IMPRESSION: NORMAL VENTILATION-PERFUSION LUNG SCAN. NEGATIVE FOR PULMONARY EMBOLI. Assessment & Plan - Diagnosis (1) Atrial fibrillation with rapid ventricular response Is this a current diagnosis for this admission?: Yes (2) Pancytopenia Is this a current diagnosis for this admission?: Yes (3) Chronic sinusitis Qualifiers: Sinusitis location: unspecified location Qualified Code(s): J32.9 - Chronic sinusitis, unspecified Is this a current diagnosis for this admission?: Yes (4) Hyponatremia Is this a current diagnosis for this admission?: Yes (5) Fever Qualifiers: Fever type: unspecified Qualified Code(s): R50.9 - Fever, unspecified Is this a current diagnosis for this admission?: Yes - Notes Notes: Atrial fibrillation with rapid ventricular response: at this point would recommend rate control with Cardizem PO. Also written orders for intravenous Cardizem on PRN basis for heart rate over 120 bpm. Feel that risk-benefit assessment did not favor Anticoagulation therapy's point because of thrombocytopenia, low chads score, however needs to be reassessed at a periodic basis. A 2-D echo is also pending and further decision about chronic anticoagulation will be made when that result is available. Febrile illness: Exact etiology not clear. Chest x-ray negative for CHF or infection. Blood culture results are pending. Urinalysis was negative for UTI. Hospital is trying to figure out the cause of it. However patient has been afebrile currently. Abnormal liver function test: possibly related to cirrhosis of liver, possible sepsis. Further evaluation may be needed. Pancytopenia: Exact etiology not clear but could be bone marrow suppression from alcohol/sepsis/other hematologic problem. Patient being evaluated by window cutter. Hyponatremia: continue with fluid restriction. I'll be off for the weekend. But will be available for phone support. - Time Time Spent: 30 to 50 Minutes Medications reviewed and adjusted accordingly: Yes
[2017-02-26 15:31] LABS: ARTERIAL BLOOD BASE EXCESS 1.5 mmol/L; ARTERIAL BLOOD O2 SATURATION 91.5 % (94-98)
--- NOTE | 2017-02-26 16:53 | XCELERA REPORT ---
[address] [address] Transthoracic Echocardiogram Report Name: JUDIE MOORE JR Age: 82 yrs Gender: Male : 1935 Patient Status: Inpatient Patient Location: [id number] Study Date: 02/26/2017 02:21 PM Height: 71 in Weight: 187 lb BSA: 2.0 m2 Procedure: A complete two-dimensional transthoracic echocardiogram was performed (2D, M-mode, spectral and color flow Doppler). The study was technically difficult with many images being suboptimal in quality. Reason For Study: atrial fibrillation Ordering Physician: ANNMARIE BARNES Performed By: Lilo Guerrero Interpretation Summary Due to the poor quality of the echocardiogram, an assessment of left ventricular ejection fraction cannot be made. Best estimate is 55-60%. LV diastolic function could not be adequately assessed due to atrial fibrilation. Regional wall motion abnormalities cannot be excluded due to limited visualization. There is borderline concentric left ventricular hypertrophy. The left ventricle is grossly normal size. The right ventricle is mildly dilated. The right atrium is normal in size The left atrium is mildly dilated. There is no mitral valve stenosis. There is a mild amount of mitral regurgitation There is no aortic valve stenosis No aortic regurgitation is present. There is a trace to mild amount of tricuspid regurgitation There is mild pulmonary hypertension by echo Best estimated right ventricular systolic pressure is elevated at 30- 40mmHg. The aortic root is not well visualized. The inferior vena cava was not well visualized Minimal pericardial effusion. MMode/2D Measurements \T\ Calculations RVDd: 3.4 cm LVIDd: 4.8 cm FS: 34.3 % Ao root diam: 3.5 cm IVSd: 0.99 cm LVIDs: 3.1 cm EDV(Teich): 107.1 ml LVPWd: 0.99 cm ESV(Teich): 39.3 ml Ao root area: 9.4 cm2 EF(Teich): 63.3 % LA dimension: 4.1 cm Doppler Measurements \T\ Calculations MV E max ari: MV P1/2t max ari: Ao V2 max: LV V1 max P.3 cm/sec 95.8 cm/sec 119.3 cm/sec 2.3 mmHg MV A max ari: MV P1/2t: 61.5 msec Ao max PG: LV V1 max: 50.8 cm/sec 5.7 mmHg 75.0 cm/sec MV E/A: 1.9 MVA(P1/2t): 3.6 cm2 MV dec slope: 456.2 cm/sec2 MV dec time: 0.21 sec PA V2 max: TR max ari: 100.7 cm/sec 272.8 cm/sec PA max PG: TR max P.8 mmHg 4.1 mmHg Left Ventricle The left ventricle is grossly normal size. There is borderline concentric left ventricular hypertrophy. Due to the poor quality of the echocardiogram, an assessment of left ventricular ejection fraction cannot be made. Best estimate is 55-60%. LV diastolic function could not be adequately assessed due to atrial fibrilation. Regional wall motion abnormalities cannot be excluded due to limited visualization. Right Ventricle The right ventricle is mildly dilated. There is normal right ventricular wall thickness. The right ventricular systolic function is normal. Atria The right atrium is normal in size. The left atrium is mildly dilated. Interarterial septum not well visualized and not well dopplered. Cannot comment on ASD/PFO presence. Mitral Valve There is mild mitral annular calcification. There is no mitral valve stenosis. There is a mild amount of mitral regurgitation. Aortic Valve The aortic valve is not well visualized secondary to technical limitations. The aortic valve opens well. There is no aortic valve stenosis. No aortic regurgitation is present. Tricuspid Valve The tricuspid valve is not well visualized secondary to technical limitations. There is no tricuspid stenosis. There is a trace to mild amount of tricuspid regurgitation. There is mild pulmonary hypertension by echo. Best estimated right ventricular systolic pressure is elevated at 30- 40mmHg. Pulmonic Valve The pulmonic valve is not well visualized. Great Vessels The aortic root is not well visualized. The inferior vena cava was not well visualized. Effusions Minimal pericardial effusion. : ANNMARIE BARNES > Kee Levin
[2017-02-26] MEDS: NORMAL SALINE 1000 ML 1,000 ML IV PRN (18:26)
[2017-02-26] MEDS: ACETAMINOPHEN 325 MG TABLET PO PRN (21:06)
[2017-02-27 05:24] LABS: ANION GAP 7 (5-19); BLOOD UREA NITROGEN 18 mg/dL (7-20); CALCIUM 8.4 mg/dL (8.4-10.2); CARBON DIOXIDE 25 mmol/L (22-30); CHLORIDE 97 mmol/L (98-107); CREATININE RESULT 0.67 mg/dL (0.52-1.25); GLUCOSE 85 mg/dL (75-110); POTASSIUM 3.5 mmol/L (3.6-5.0); SODIUM 129.4 mmol/L (137-145)
[2017-02-27 05:40] LABS: HEMOGLOBIN 13.2 g/dL (13.5-17.0); HGB HCT DIFFERENCE 0.6; MEAN CORPUSCULAR HEMOGLOBIN 31.9 pg (27.0-33.4); MEAN CORPUSCULAR HGB CONC 33.9 g/dL (32.0-36.0); MEAN CORPUSCULAR VOLUME 94 fl (80-97); RED BLOOD COUNT 4.14 10^6/uL (4.35-5.55); RED CELL DISTRIBUTION WIDTH 12.9 % (11.5-14.0); WHITE BLOOD COUNT 3.8 10^3/uL (4.0-10.5)
[2017-02-27] MEDS: DILTIAZEM HCL 30 MG TABLET PO SCH ×2 (05:47→13:00)
[2017-02-27] MEDS: LANSOPRAZOLE 30 MG TAB.RAP.DR PO SCH (05:47)
[2017-02-27] MEDS: DOCUSATE SODIUM 100 MG CAPSULE PO SCH ×2 (09:27→17:35)
[2017-02-27] MEDS: DOXYCYCLINE HYCLATE 100 MG in DEXTROSE 5%-WATER 250 ML IV SCH ×2 (09:27→23:05)
--- NOTE | 2017-02-27 10:51 | EKG REPORT ---
SEVERITY:- ABNORMAL ECG - ATRIAL FIBRILLATION, V-RATE 108-155 LEFT ANTERIOR FASCICULAR BLOCK BORDERLINE T ABNORMALITIES, ANT-LAT LEADS PROLONGED QT INTERVAL : Confirmed by: Kee Levin 27-Feb-2017 10:50:49
--- NOTE | 2017-02-27 11:06 | PDOC PROGRESS REPORT ---
Subjective Progress Note for:: 02/27/17 Subjective:: NO acute events overnight, less confused this am Physical Exam Vital Signs: Temp Pulse Resp BP Pulse Ox 97.6 F 81 18 96/53 L 95 02/27/17 08:27 02/27/17 08:27 02/27/17 08:27 02/27/17 08:27 02/27/17 08:27 Intake & Output 02/26/17 02/27/17 02/28/17 06:59 06:59 06:59 Intake Total 1271 2848 Output Total 450 1100 Balance 821 1748 Weight 83.6 kg 83.4 kg General appearance: PRESENT: no acute distress, well-developed, well-nourished Head exam: PRESENT: atraumatic, normocephalic Eye exam: PRESENT: conjunctiva pink, EOMI, PERRLA. ABSENT: scleral icterus Ear exam: PRESENT: normal external ear exam Mouth exam: PRESENT: moist, tongue midline Neck exam: ABSENT: carotid bruit, JVD, lymphadenopathy, thyromegaly Respiratory exam: PRESENT: clear to auscultation madi. ABSENT: rales, rhonchi, wheezes Cardiovascular exam: PRESENT: RRR. ABSENT: diastolic murmur, rubs, systolic murmur Pulses: PRESENT: normal dorsalis pedis pul Vascular exam: PRESENT: normal capillary refill GI/Abdominal exam: PRESENT: normal bowel sounds, soft. ABSENT: distended, guarding, mass, organolmegaly, rebound, tenderness Rectal exam: PRESENT: deferred Extremities exam: PRESENT: full ROM. ABSENT: calf tenderness, clubbing, pedal edema Neurological exam: PRESENT: alert, awake, oriented to person, oriented to place , oriented to time, oriented to situation, CN II-XII grossly intact. ABSENT: motor sensory deficit Psychiatric exam: PRESENT: appropriate affect, normal mood. ABSENT: homicidal ideation, suicidal ideation Skin exam: PRESENT: dry, intact, warm. ABSENT: cyanosis, rash Results Laboratory Results: 02/27/17 04:12 02/27/17 04:12 02/26/17 02/26/17 02/27/17 13:46 15:15 04:12 WBC 3.8 L RBC 4.14 L Hgb 13.2 L Hct 39.0 MCV 94 MCH 31.9 MCHC 33.9 RDW 12.9 Plt Count 32 L Carbonic Acid 0.97 L HCO3/H2CO3 Ratio 24:1 ABG pH 7.49 H ABG pCO2 32.3 L ABG pO2 55.5 L ABG HCO3 24.2 ABG O2 Saturation 91.5 L ABG Base Excess 1.5 FiO2 ROOMAIR Sodium Potassium Chloride Carbon Dioxide Anion Gap BUN Creatinine Est GFR ( Amer) Est GFR (Non-Af Amer) Glucose Lactic Acid 3.6 H Calcium 02/27/17 04:12 WBC RBC Hgb Hct MCV MCH MCHC RDW Plt Count Carbonic Acid HCO3/H2CO3 Ratio ABG pH ABG pCO2 ABG pO2 ABG HCO3 ABG O2 Saturation ABG Base Excess FiO2 Sodium 129.4 L Potassium 3.5 L Chloride 97 L Carbon Dioxide 25 Anion Gap 7 BUN 18 Creatinine 0.67 Est GFR ( Amer) > 60 Est GFR (Non-Af Amer) > 60 Glucose 85 Lactic Acid Calcium 8.4 Impressions: Chest X-Ray 02/25/17 12:40 IMPRESSION: NO ACUTE RADIOGRAPHIC FINDING IN THE CHEST. Lung Scan-VQ NM 02/25/17 21:43 IMPRESSION: NORMAL VENTILATION-PERFUSION LUNG SCAN. NEGATIVE FOR PULMONARY EMBOLI. Assessment & Plan - Diagnosis (1) Pancytopenia Is this a current diagnosis for this admission?: YesPlan: As noted prev, likely 2nd cirrhosis but some mild DIC also possible, con't holding all anticoagulants, hold on transfusion of plt unless pt w/ active bleeding, will probably have plt ct 40-60K chronically. - Time Time Spent with patient: 15-24 minutes Critical Time spent with patient: 15-24 minutes
--- NOTE | 2017-02-27 11:45 | PDOC PROGRESS REPORT ---
Subjective Progress Note for:: 02/27/17 Subjective:: Patient denies any chills or fever. Denies any shortness of breath or chest pain. Denies any diarrhea. There is no worsening on the rash noted. No chest pain diaphoresis nausea nor vomiting. Physical Exam Vital Signs: Temp Pulse Resp BP Pulse Ox 97.6 F 81 18 96/53 L 95 02/27/17 08:27 02/27/17 08:27 02/27/17 08:27 02/27/17 08:27 02/27/17 08:27 Intake & Output 02/26/17 02/27/17 02/28/17 06:59 06:59 06:59 Intake Total 1271 2848 Output Total 450 1100 Balance 821 1748 Weight 83.6 kg 83.4 kg General appearance: PRESENT: no acute distress, cooperative Head exam: PRESENT: normocephalic Eye exam: PRESENT: conjunctiva pink, EOMI Mouth exam: PRESENT: moist, neck supple Neck exam: ABSENT: JVD Respiratory exam: PRESENT: clear to auscultation madi, decreased breath sounds. ABSENT: rhonchi, wheezes Cardiovascular exam: PRESENT: irregular rhythm. ABSENT: gallop GI/Abdominal exam: PRESENT: hypoactive bowel sounds, soft. ABSENT: tenderness Extremities exam: ABSENT: pedal edema Neurological exam: PRESENT: alert, awake, oriented to situation Skin exam: PRESENT: dry, warm. ABSENT: cyanosis Results Laboratory Results: 02/27/17 04:12 02/27/17 04:12 02/26/17 02/26/17 02/27/17 13:46 15:15 04:12 WBC 3.8 L RBC 4.14 L Hgb 13.2 L Hct 39.0 MCV 94 MCH 31.9 MCHC 33.9 RDW 12.9 Plt Count 32 L Carbonic Acid 0.97 L HCO3/H2CO3 Ratio 24:1 ABG pH 7.49 H ABG pCO2 32.3 L ABG pO2 55.5 L ABG HCO3 24.2 ABG O2 Saturation 91.5 L ABG Base Excess 1.5 FiO2 ROOMAIR Sodium Potassium Chloride Carbon Dioxide Anion Gap BUN Creatinine Est GFR ( Amer) Est GFR (Non-Af Amer) Glucose Lactic Acid 3.6 H Calcium 02/27/17 04:12 WBC RBC Hgb Hct MCV MCH MCHC RDW Plt Count Carbonic Acid HCO3/H2CO3 Ratio ABG pH ABG pCO2 ABG pO2 ABG HCO3 ABG O2 Saturation ABG Base Excess FiO2 Sodium 129.4 L Potassium 3.5 L Chloride 97 L Carbon Dioxide 25 Anion Gap 7 BUN 18 Creatinine 0.67 Est GFR ( Amer) > 60 Est GFR (Non-Af Amer) > 60 Glucose 85 Lactic Acid Calcium 8.4 Impressions: Chest X-Ray 02/25/17 12:40 IMPRESSION: NO ACUTE RADIOGRAPHIC FINDING IN THE CHEST. Lung Scan-VQ NM 02/25/17 21:43 IMPRESSION: NORMAL VENTILATION-PERFUSION LUNG SCAN. NEGATIVE FOR PULMONARY EMBOLI. Assessment & Plan - Diagnosis (1) Atrial fibrillation with rapid ventricular response Is this a current diagnosis for this admission?: Yes (2) Thrombocytopenia Is this a current diagnosis for this admission?: Yes (3) Hyponatremia Is this a current diagnosis for this admission?: Yes (4) Fever Qualifiers: Fever type: unspecified Qualified Code(s): R50.9 - Fever, unspecified Is this a current diagnosis for this admission?: Yes (5) Abnormal urinalysis Is this a current diagnosis for this admission?: Yes (6) Diverticulosis Qualifiers: Diverticulosis site: unspecified location Diverticulosis bleeding: diverticulosis without bleeding Qualified Code(s): K57.90 - Diverticulosis of intestine, part unspecified, without perforation or abscess without bleeding Is this a current diagnosis for this admission?: Yes (7) Chronic sinusitis Qualifiers: Sinusitis location: unspecified location Qualified Code(s): J32.9 - Chronic sinusitis, unspecified Is this a current diagnosis for this admission?: Yes - Time Time Spent with patient: 25-34 minutes - Plan Summary Plan Summary: We are going to decrease the IV fluid rate. Blood pressure is in the low normal side. We will give digoxin in addition to Cardizem. Continue current antibiotics. Awaiting serologies.
[2017-02-27] MEDS: NORMAL SALINE 1000 ML 1,000 ML IV PRN (12:49)
[2017-02-27] MEDS ORDERED: DIGOXIN 0.25 MG TABLET PO SCH (13:45)
[2017-02-27] MEDS: ACETAMINOPHEN 325 MG TABLET PO PRN (15:24)
[2017-02-27] MEDS ORDERED: BISACODYL 10 MG SUPP.RECT PR ONE (20:00)
[2017-02-28] MEDS: NORMAL SALINE 1000 ML 1,000 ML IV PRN ×2 (03:16→17:38)
[2017-02-28] MEDS: LANSOPRAZOLE 30 MG TAB.RAP.DR PO SCH (05:36)
[2017-02-28] MEDS ORDERED: DILTIAZEM HCL 30 MG TABLET PO SCH ×2 (07:30→12:00)
[2017-02-28] MEDS ORDERED: DILTIAZEM HCL INJ 25 MG/5 ML VIAL IV PRN (08:12)
[2017-02-28] MEDS ORDERED: DILTIAZEM HCL 30 MG TABLET PO ONE (08:15)
--- NOTE | 2017-02-28 08:54 | PDOC PROGRESS REPORT ---
Subjective Progress Note for:: 02/28/17 Subjective:: The patient denies any shortness of breath, chest pain, PND orthopnea. No reported temperature spikes respiratory distress. Patient apparently is back to rapid atrial fibrillation. His Cardizem was held last night. He was placed on digoxin yesterday. Patient denies any diarrhea. Physical Exam Vital Signs: Temp Pulse Resp BP Pulse Ox 97.6 F 102 H 18 113/77 100 02/28/17 07:31 02/28/17 07:31 02/28/17 07:31 02/28/17 07:31 02/28/17 07:31 Intake & Output 02/27/17 02/28/17 03/01/17 06:59 06:59 06:59 Intake Total 2848 3474 Output Total 1100 1275 Balance 1748 2199 Weight 83.4 kg 87 kg General appearance: PRESENT: no acute distress, cooperative Head exam: PRESENT: normocephalic Eye exam: PRESENT: EOMI Mouth exam: PRESENT: moist, neck supple Neck exam: ABSENT: JVD Respiratory exam: PRESENT: clear to auscultation madi. ABSENT: rhonchi, wheezes Cardiovascular exam: PRESENT: irregular rhythm. ABSENT: gallop GI/Abdominal exam: PRESENT: soft. ABSENT: distended, tenderness Extremities exam: ABSENT: pedal edema Neurological exam: PRESENT: alert, awake, oriented to situation Skin exam: PRESENT: dry, warm. ABSENT: cyanosis Results Laboratory Results: 02/27/17 04:12 02/27/17 04:12 Impressions: Chest X-Ray 02/25/17 12:40 IMPRESSION: NO ACUTE RADIOGRAPHIC FINDING IN THE CHEST. Lung Scan-VQ NE 02/25/17 21:43 IMPRESSION: NORMAL VENTILATION-PERFUSION LUNG SCAN. NEGATIVE FOR PULMONARY EMBOLI. Assessment & Plan - Diagnosis (1) Atrial fibrillation with rapid ventricular response Is this a current diagnosis for this admission?: Yes (2) Thrombocytopenia Is this a current diagnosis for this admission?: Yes (3) Hyponatremia Is this a current diagnosis for this admission?: Yes (4) Fever Qualifiers: Fever type: unspecified Qualified Code(s): R50.9 - Fever, unspecified Is this a current diagnosis for this admission?: Yes (5) Abnormal urinalysis Is this a current diagnosis for this admission?: Yes (6) Diverticulosis Qualifiers: Diverticulosis site: unspecified location Diverticulosis bleeding: diverticulosis without bleeding Qualified Code(s): K57.90 - Diverticulosis of intestine, part unspecified, without perforation or abscess without bleeding Is this a current diagnosis for this admission?: Yes (7) Chronic sinusitis Qualifiers: Sinusitis location: unspecified location Qualified Code(s): J32.9 - Chronic sinusitis, unspecified Is this a current diagnosis for this admission?: Yes (8) Cirrhosis of liver Is this a current diagnosis for this admission?: Yes - Time Time Spent with patient: 25-34 minutes - Plan Summary Plan Summary: We will begin physical therapy. Resume oral Cardizem and as needed intravenous Cardizem. Continue digoxin and recheck level in the morning. Continue to monitor platelet count. Continue to monitor electrolytes. Continue current antibiotics and follow Lyme titer and [place] spotted fever titer.
[2017-02-28 09:48] LABS: ANION GAP 6 (5-19); BLOOD UREA NITROGEN 15 mg/dL (7-20); CALCIUM 8.4 mg/dL (8.4-10.2); CARBON DIOXIDE 26 mmol/L (22-30); CHLORIDE 97 mmol/L (98-107); CREATININE RESULT 0.68 mg/dL (0.52-1.25); GLUCOSE 115 mg/dL (75-110); POTASSIUM 3.5 mmol/L (3.6-5.0); SODIUM 128.9 mmol/L (137-145)
[2017-02-28] MEDS: DIGOXIN 0.25 MG TABLET PO SCH (09:53)
[2017-02-28] MEDS: DOXYCYCLINE HYCLATE 100 MG in DEXTROSE 5%-WATER 250 ML IV SCH ×2 (09:53→21:54)
[2017-02-28] MEDS: DOCUSATE SODIUM 100 MG CAPSULE PO SCH ×2 (09:53→17:27)
[2017-02-28] MEDS: ACETAMINOPHEN 325 MG TABLET PO PRN (11:36)
[2017-02-28] MEDS: DILTIAZEM HCL 30 MG TABLET PO SCH ×3 (11:40→23:42)
[2017-02-28] MEDS: POTASSI CL 20 MEQ/50 ML RIDER 20 MEQ/50 ML RTUPB IV SCH ×2 (17:28→19:31)
[2017-03-01] MEDS: DILTIAZEM HCL 30 MG TABLET PO SCH (05:14)
[2017-03-01] MEDS: LANSOPRAZOLE 30 MG TAB.RAP.DR PO SCH (05:14)
[2017-03-01] MEDS: NORMAL SALINE 1000 ML 1,000 ML IV PRN (05:15)
[2017-03-01 05:49] LABS: ANION GAP 6 (5-19); BLOOD UREA NITROGEN 12 mg/dL (7-20); CALCIUM 8.3 mg/dL (8.4-10.2); CARBON DIOXIDE 25 mmol/L (22-30); CHLORIDE 104 mmol/L (98-107); CREATININE RESULT 0.56 mg/dL (0.52-1.25); DIGOXIN 1.08 ng/mL (0.8-2.0); GLUCOSE 87 mg/dL (75-110); POTASSIUM 3.7 mmol/L (3.6-5.0); SODIUM 135.3 mmol/L (137-145)
[2017-03-01 06:21] LABS: HEMATOCRIT 39.5 % (37.9-51.0); HEMOGLOBIN 13.3 g/dL (13.5-17.0); HGB HCT DIFFERENCE 0.4; MEAN CORPUSCULAR HEMOGLOBIN 31.9 pg (27.0-33.4); MEAN CORPUSCULAR HGB CONC 33.7 g/dL (32.0-36.0); MEAN CORPUSCULAR VOLUME 95 fl (80-97); RED BLOOD COUNT 4.18 10^6/uL (4.35-5.55); RED CELL DISTRIBUTION WIDTH 13.1 % (11.5-14.0)
[2017-03-01 06:38] LABS: WHITE BLOOD COUNT 10.3 10^3/uL (4.0-10.5)
--- NOTE | 2017-03-01 08:40 | PDOC PROGRESS REPORT ---
Subjective Progress Note for:: 03/01/17 Subjective:: No acute events overnight Physical Exam Vital Signs: Temp Pulse Resp BP Pulse Ox 97.6 F 127 H 12 121/70 98 03/01/17 07:08 03/01/17 07:08 03/01/17 07:08 03/01/17 07:08 03/01/17 07:08 Intake & Output 02/28/17 03/01/17 03/02/17 06:59 06:59 06:59 Intake Total 3474 2991 Output Total 1275 2300 Balance 2199 691 Weight 87 kg 86 kg General appearance: PRESENT: no acute distress, well-developed, well-nourished Head exam: PRESENT: atraumatic, normocephalic Eye exam: PRESENT: conjunctiva pink, EOMI, PERRLA. ABSENT: scleral icterus Ear exam: PRESENT: normal external ear exam Mouth exam: PRESENT: moist, tongue midline Neck exam: ABSENT: carotid bruit, JVD, lymphadenopathy, thyromegaly Respiratory exam: PRESENT: clear to auscultation madi. ABSENT: rales, rhonchi, wheezes Cardiovascular exam: PRESENT: RRR. ABSENT: diastolic murmur, rubs, systolic murmur Pulses: PRESENT: normal dorsalis pedis pul Vascular exam: PRESENT: normal capillary refill GI/Abdominal exam: PRESENT: normal bowel sounds, soft. ABSENT: distended, guarding, mass, organolmegaly, rebound, tenderness Rectal exam: PRESENT: deferred Extremities exam: PRESENT: full ROM. ABSENT: calf tenderness, clubbing, pedal edema Neurological exam: PRESENT: alert, awake, oriented to person, oriented to place , oriented to time, oriented to situation, CN II-XII grossly intact. ABSENT: motor sensory deficit Psychiatric exam: PRESENT: appropriate affect, normal mood. ABSENT: homicidal ideation, suicidal ideation Skin exam: PRESENT: dry, intact, warm. ABSENT: cyanosis, rash Results Laboratory Results: 03/01/17 05:09 03/01/17 05:09 02/28/17 03/01/17 03/01/17 09:05 05:09 05:09 WBC 10.3 D RBC 4.18 L Hgb 13.3 L Hct 39.5 MCV 95 MCH 31.9 MCHC 33.7 RDW 13.1 Plt Count 50 L Sodium 128.9 L 135.3 L Potassium 3.5 L 3.7 Chloride 97 L 104 Carbon Dioxide 26 25 Anion Gap 6 6 BUN 15 12 Creatinine 0.68 0.56 Est GFR ( Amer) > 60 > 60 Est GFR (Non-Af Amer) > 60 > 60 Glucose 115 H 87 Calcium 8.4 8.3 L Impressions: Chest X-Ray 02/25/17 12:40 IMPRESSION: NO ACUTE RADIOGRAPHIC FINDING IN THE CHEST. Lung Scan-VQ NM 02/25/17 21:43 IMPRESSION: NORMAL VENTILATION-PERFUSION LUNG SCAN. NEGATIVE FOR PULMONARY EMBOLI. Assessment & Plan - Diagnosis (1) Pancytopenia Is this a current diagnosis for this admission?: YesPlan: Likely secondary to cirrhosis, no further evaluation needed, patient probably at baseline with platelet count. Would not recommend any anticoagulation, I believe the risks would outweigh the benefits from it. Will sign off, thank you for the opportunity to assist in this patient's care please call with any questions. - Time Time Spent with patient: 15-24 minutes Critical Time spent with patient: 15-24 minutes
[2017-03-01] MEDS: DIGOXIN 0.25 MG TABLET PO SCH (09:17)
[2017-03-01] MEDS: DOCUSATE SODIUM 100 MG CAPSULE PO SCH ×2 (09:17→17:23)
[2017-03-01] MEDS: DOXYCYCLINE HYCLATE 100 MG in DEXTROSE 5%-WATER 250 ML IV SCH (09:18)
[2017-03-01] MEDS: ACETAMINOPHEN 325 MG TABLET PO PRN ×2 (09:59→17:25)
[2017-03-01] MEDS ORDERED: NORMAL SALINE 1000 ML 1,000 ML IV PRN (10:28)
[2017-03-01] MEDS ORDERED: ONDANSETRON HCL INJ/PF 4 MG/2 ML SDV IV PRN (10:36)
--- NOTE | 2017-03-01 10:37 | PDOC PROGRESS REPORT ---
Subjective Progress Note for:: 03/01/17 Subjective:: Patient denies any shortness of breath, PND, orthopnea. Denies any chest pain at all. No chills or fever. No diarrhea. Patient's heart rate better upon resumption of Cardizem. Hold parameters were given. Patient able to ambulate with physical therapy without any dizziness. Heart rate however still uncontrolled. Physical Exam Vital Signs: Temp Pulse Resp BP Pulse Ox 97.6 F 127 H 12 121/70 98 03/01/17 07:08 03/01/17 07:08 03/01/17 07:08 03/01/17 07:08 03/01/17 07:08 Intake & Output 02/28/17 03/01/17 03/02/17 06:59 06:59 06:59 Intake Total 3474 2991 Output Total 1275 2300 Balance 2199 691 Weight 87 kg 86 kg General appearance: PRESENT: no acute distress, cooperative Head exam: PRESENT: normocephalic Eye exam: PRESENT: EOMI Mouth exam: PRESENT: moist, neck supple Neck exam: ABSENT: JVD Respiratory exam: PRESENT: clear to auscultation madi. ABSENT: rhonchi, wheezes Cardiovascular exam: PRESENT: irregular rhythm. ABSENT: gallop GI/Abdominal exam: PRESENT: normal bowel sounds, soft. ABSENT: distended, tenderness Extremities exam: ABSENT: pedal edema Neurological exam: PRESENT: alert, awake, oriented to person, oriented to place , oriented to time, oriented to situation Skin exam: PRESENT: dry, warm. ABSENT: cyanosis Results Laboratory Results: 03/01/17 05:09 03/01/17 05:09 03/01/17 03/01/17 05:09 05:09 WBC 10.3 D RBC 4.18 L Hgb 13.3 L Hct 39.5 MCV 95 MCH 31.9 MCHC 33.7 RDW 13.1 Plt Count 50 L Sodium 135.3 L Potassium 3.7 Chloride 104 Carbon Dioxide 25 Anion Gap 6 BUN 12 Creatinine 0.56 Est GFR ( Amer) > 60 Est GFR (Non-Af Amer) > 60 Glucose 87 Calcium 8.3 L Impressions: Chest X-Ray 02/25/17 12:40 IMPRESSION: NO ACUTE RADIOGRAPHIC FINDING IN THE CHEST. Lung Scan-VQ NM 02/25/17 21:43 IMPRESSION: NORMAL VENTILATION-PERFUSION LUNG SCAN. NEGATIVE FOR PULMONARY EMBOLI. Assessment & Plan - Diagnosis (1) Atrial fibrillation with rapid ventricular response Is this a current diagnosis for this admission?: Yes (2) Thrombocytopenia Is this a current diagnosis for this admission?: Yes (3) Hyponatremia Is this a current diagnosis for this admission?: Yes (4) Fever Qualifiers: Fever type: unspecified Qualified Code(s): R50.9 - Fever, unspecified Is this a current diagnosis for this admission?: Yes (5) Abnormal urinalysis Is this a current diagnosis for this admission?: Yes (6) Diverticulosis Qualifiers: Diverticulosis site: unspecified location Diverticulosis bleeding: diverticulosis without bleeding Qualified Code(s): K57.90 - Diverticulosis of intestine, part unspecified, without perforation or abscess without bleeding Is this a current diagnosis for this admission?: Yes (7) Chronic sinusitis Qualifiers: Sinusitis location: unspecified location Qualified Code(s): J32.9 - Chronic sinusitis, unspecified Is this a current diagnosis for this admission?: Yes (8) Cirrhosis of liver Is this a current diagnosis for this admission?: Yes - Time Time Spent with patient: 25-34 minutes - Plan Summary Plan Summary: We will continue oral Cardizem and digoxin. Case discussed with cardiology service. We will add low-dose metoprolol at 12.5 mg p.o. twice a day hopefully his heart rate get better controlled and can be discharged in the morning. In the meantime I will discontinue intravenous antibiotics and she is to oral. Follow titers of Lyme and are RMSF. Continue supportive care.
[2017-03-01] MEDS ORDERED: METOPROLOL TARTRATE 25 MG TABLET PO ONE (11:30)
[2017-03-01] MEDS: DILTIAZEM HCL 60 MG TABLET PO SCH ×2 (11:53→17:23)
--- NOTE | 2017-03-01 21:15 | EKG REPORT ---
SEVERITY:- ABNORMAL ECG - ATRIAL FIBRILLATION LEFT ANTERIOR FASCICULAR BLOCK ABNRM R PROG, CONSIDER ASMI OR LEAD PLACEMENT PROLONGED QT INTERVAL : Confirmed by: Kee Levin 01-Mar-2017 21:15:16
[2017-03-01] MEDS: METOPROLOL TARTRATE 25 MG TABLET PO SCH (21:32)
[2017-03-01] MEDS: DOXYCYCLINE HYCLATE 100 MG TABLET PO SCH (21:32)
[2017-03-01] MEDS: SODIUM CHLORIDE 5% OPH SOLN 15 ML OU PRN (21:33)
[2017-03-02] MEDS: DILTIAZEM HCL 60 MG TABLET PO SCH ×2 (01:17→06:11)
[2017-03-02] MEDS: SODIUM CHLORIDE 5% OPH SOLN 15 ML OU PRN ×2 (03:42→08:59)
[2017-03-02] MEDS: LANSOPRAZOLE 30 MG TAB.RAP.DR PO SCH (06:12)
[2017-03-02] MEDS: ACETAMINOPHEN 325 MG TABLET PO PRN (08:08)
--- NOTE | 2017-03-02 09:31 | PDOC PROGRESS REPORT ---
Subjective Progress Note for:: 03/01/17 Subjective:: Patient seems to be doing better with gradual improvement. Pt is denying any chest arm or neck discomfort. Patient denying any PND, orthopnea. Patient denied any sustained palpitations, dizziness, syncope, near syncope. Patient denying any fever chills. Patient denying any other significant discomfort. Patient is maintaining atrial fibrillation but heart rate is better controlled. Review of systems: Rest review of systems negative. Medications: Medications have been reviewed. Physical Exam Vital Signs: Temp Pulse Resp BP Pulse Ox 97.9 F 74 16 98/62 L 100 03/01/17 15:16 03/01/17 15:16 03/01/17 15:16 03/01/17 15:16 03/01/17 15:16 Intake & Output 02/28/17 03/01/17 03/02/17 06:59 06:59 06:59 Intake Total 3474 2991 1526 Output Total 1275 2300 1020 Balance 2199 691 506 Weight 87 kg 86 kg Exam: GENERAL: well-nourished and in no acute distress. Alert and oriented x3 HEAD: Atraumatic, normocephalic. EYES: Pupils equal round and reactive to light, extraocular movements intact, sclera anicteric, conjunctiva are normal. ENT: TMs normal, nares patent, oropharynx clear without exudates. Moist mucous membranes. No oral ulcerations or bleeding gums noted NECK: supple without lymphadenopathy. Trachea is central. No cervical or axillary lymphadenopathy noted. Carotids are 2+, JVD WNL LUNGS: Respiration seems nonlabored, no significant accessory muscle action noted. Breath sounds clear to auscultation bilaterally and equal noted. No wheezes rales or rhonchi noted. No significant dullness noted on percussion. CHEST: Palpation of the chest wall shows no significant chest wall tenderness. No other significant abnormalities noted. HEART: [facility] [employer], No PSH, 1/6 MICHAEL aortic area, 1/6 charles systolic murmur mitral area, no rubs, no gallops. ABDOMEN: Soft, no significant tenderness appreciated, normoactive bowel sounds. No guarding, no rebound. No rigidity noted . No masses appreciated. EXTREMITIES: Pedal pulses are 1-2+, no calf tenderness noted. No clubbing or cyanosis.trace to 1+ pedal edema noted NEUROLOGICAL: Focused neurological exam showed no significant neurologic deficit. Normal speech, no focal weakness appreciated. PSYCH: Normal mood, normal affect. Judgment and insight within normal limits. SKIN: No significant ecchymosis, rash, ulcerations or signs of pruritus noted. MUSCULOSKELETAL EXAM: No significant joint swelling noted. Results Laboratory Results: 03/01/17 05:09 03/01/17 05:09 03/01/17 03/01/17 05:09 05:09 WBC 10.3 D RBC 4.18 L Hgb 13.3 L Hct 39.5 MCV 95 MCH 31.9 MCHC 33.7 RDW 13.1 Plt Count 50 L Sodium 135.3 L Potassium 3.7 Chloride 104 Carbon Dioxide 25 Anion Gap 6 BUN 12 Creatinine 0.56 Est GFR ( Amer) > 60 Est GFR (Non-Af Amer) > 60 Glucose 87 Calcium 8.3 L Impressions: Chest X-Ray 02/25/17 12:40 IMPRESSION: NO ACUTE RADIOGRAPHIC FINDING IN THE CHEST. Lung Scan-VQ NM 02/25/17 21:43 IMPRESSION: NORMAL VENTILATION-PERFUSION LUNG SCAN. NEGATIVE FOR PULMONARY EMBOLI. Assessment & Plan - Diagnosis (1) Atrial fibrillation with rapid ventricular response Is this a current diagnosis for this admission?: Yes (2) Pancytopenia Is this a current diagnosis for this admission?: Yes (3) Chronic sinusitis Qualifiers: Sinusitis location: unspecified location Qualified Code(s): J32.9 - Chronic sinusitis, unspecified Is this a current diagnosis for this admission?: Yes (4) Hyponatremia Is this a current diagnosis for this admission?: Yes (5) Fever Qualifiers: Fever type: unspecified Qualified Code(s): R50.9 - Fever, unspecified Is this a current diagnosis for this admission?: Yes - Notes Notes: Atrial fibrillation with rapid ventricular response: Heart rate response was noted to be high this morning. After discussion with hospitalist, the hospitalist added metoprolol tartrate with better control of heart rate. Feel that risk-benefit assessment did not favor Anticoagulation therapy's point because of thrombocytopenia, low chads score, however needs to be reassessed at a periodic basis. Febrile illness: Patient has been afebrile currently. Abnormal liver function test: possibly related to cirrhosis of liver, possible sepsis. Further evaluation may be needed. Pancytopenia: Exact etiology not clear but could be bone marrow suppression from alcohol/sepsis/other hematologic problem. Patient had evaluation by a cake icer who feels that pancytopenia most likely related to liver problems. Hyponatremia: continue with fluid restriction. Serum sodium has shown improvement. - Time Time with patient: 15-25 minutes - CODE STATUS was discussed, patient remains full code. Surrogate decision-maker unchanged. Multiple medical problems were addressed. More than 50% of the time spent coordinating care, discussing management plans with involved caregivers. Management plans discussed with involved personnels. Medical decision making was of moderate to high complexity , patient's has multiple comorbidities. Medications reviewed and adjusted accordingly: Yes
[2017-03-02] MEDS: DOCUSATE SODIUM 100 MG CAPSULE PO SCH (09:47)
[2017-03-02] MEDS: METOPROLOL TARTRATE 25 MG TABLET PO SCH (09:48)
[2017-03-02] MEDS: DOXYCYCLINE HYCLATE 100 MG TABLET PO SCH (09:49)
[2017-03-02] MEDS: DIGOXIN 0.25 MG TABLET PO SCH (09:49)
[2017-03-02] MEDS ORDERED: DILTIAZEM HCL 240 MG CAPSULE.CR PO ONE (10:00)
[2017-03-02 10:26] VITALS: BP 108/65
--- NOTE | 2017-03-02 11:46 | PDOC DISCHARGE SUMMARY ---
General - Admit/Disc Date/PCP Admission Date/Primary Care Provider: 02/25/17 17:44 BREANNE ALY MD Discharge Date: 03/02/17 - Discharge Diagnosis (1) [place] spotted fever Is this a current diagnosis for this admission?: YesSummary: Patient had tick bites previous to this admission. Positive for IgM for [place] spotted fever. Treated with doxycycline. Sent home with a total of 14 days of doxycycline. (2) Atrial fibrillation with rapid ventricular response Is this a current diagnosis for this admission?: YesSummary: Patient still in atrial fibrillation but rate controlled. Sent home on diltiazem, metoprolol, digoxin. (3) Hyponatremia Is this a current diagnosis for this admission?: YesSummary: Most likely secondary to the acute illness. (4) Thrombocytopenia Is this a current diagnosis for this admission?: YesSummary: Most likely secondary to [place] spotted fever - Additional Information Resuscitation Status: Full Code Discharge Diet: Cardiac Discharge Activity: Activity As Tolerated Home Medications: Ascorbic Acid [Vitamin C 500 mg Tablet] 500 mg PO DAILY 02/26/17 Biotin [Biotin 5 mg Tablet] 5 mg PO DAILY 02/26/17 Calcium Carbonate [Calcium] 1,500 mg PO DAILY 02/26/17 Cayenne [Cayenne 450 mg Capsule] 450 mg PO DAILY 02/26/17 Cholecalciferol (Vitamin D3) [Vitamin D3 1000 Unit Tablet] 1,000 unit PO DAILY 02/26/17 Cranberry Extract [Cranberry 200 mg Capsule] 200 mg PO DAILY 02/26/17 Garlic [Garlic Oil] 500 mg PO DAILY 02/26/17 Jordana Root [Jordana] 550 mg PO DAILY 02/26/17 Ginkgo Biloba Surprise Extract [Ginkgo] 120 mg PO DAILY 02/26/17 Glucosamine HCl 1,000 mg PO DAILY 02/26/17 Lactobacillus Combo No.6 [Probiotic Complex] 1 tab PO DAILY 02/26/17 Lysine HCl [l-Lysine] 500 mg PO DAILY 02/26/17 Melatonin 10 mg PO QHS 02/26/17 Methylsulfonylmethane [MSM] 1,000 mg PO BID 02/26/17 Milk Thistle 500 mg PO DAILY 02/26/17 [facility]-3 Fatty Acids/Fish Oil [[facility] 3 Fish Oil Softgel] 2 cap PO DAILY 02/26/17 Prasterone (Dhea)/Calcium Carb [Dhea 50 mg Tablet] 1 tab PO DAILY 02/26/17 Ubidecarenone [Coq-10] 200 mg PO DAILY 02/26/17 Vitamin E 400 units PO DAILY 02/26/17 Digoxin [Lanoxin 0.25 mg Tablet] 0.25 mg PO DAILY #30 tablet 03/02/17 Diltiazem HCl [Diltiazem 24Hr Cd] 240 mg PO DAILY #30 cap.er.24h 03/02/17 Doxycycline Hyclate [Vibramycin 100 mg Tablet] 100 mg PO Q12 #18 tablet Metoprolol Tartrate [Lopressor 25 mg Tablet] 25 mg PO Q12 #60 tablet 03/02/17 History of Present Illness History of Present Illness: JUDIE MOORE JR is a 82 year old male presented with fever of 103 and atrial fibrillation with rapid ventricular rate. Patient had been bit by a tick several days prior to presentation. He had shortness of breath associated with his atrial fibrillation and rapid ventricular rate. Hospital Course Hospital Course: 82-year-old male who presented with atrial fibrillation with rapid ventricular rate. Patient was initially started on a diltiazem drip and was converted over to p.o. diltiazem. Patient also required digoxin as well as metoprolol. Patient was seen by cardiology while hospitalized. He also presented with a fever of 103. He was found to have [place] spotted fever on serologies and had previously been started on Omnicef as an outpatient for a sinus infection and this was changed to doxycycline. The patient is being sent home on oral doxycycline to complete a 14 day course of antibiotics for his [place] spotted fever. Physical Exam Vital Signs: Temp Pulse Resp BP Pulse Ox 97.5 F 80 18 108/65 97 03/02/17 10:25 03/02/17 10:25 03/02/17 10:25 03/02/17 10:25 03/02/17 10:25 Intake & Output 03/01/17 03/02/17 03/03/17 06:59 06:59 06:59 Intake Total 2991 2378 Output Total 2300 2210 Balance 691 168 Weight 86 kg 86.2 kg General appearance: PRESENT: no acute distress Eye exam: PRESENT: conjunctiva pink. ABSENT: scleral icterus Mouth exam: PRESENT: moist, tongue midline Neck exam: ABSENT: JVD Respiratory exam: PRESENT: clear to auscultation madi. ABSENT: rales, rhonchi, wheezes Cardiovascular exam: PRESENT: irregular rhythm. ABSENT: diastolic murmur, rubs , systolic murmur GI/Abdominal exam: PRESENT: normal bowel sounds, soft. ABSENT: distended, guarding, mass, organolmegaly, rebound, tenderness Extremities exam: ABSENT: calf tenderness, clubbing, pedal edema Neurological exam: PRESENT: alert, awake, oriented to person, oriented to place , oriented to time, oriented to situation, CN II-XII grossly intact. ABSENT: motor sensory deficit Psychiatric exam: PRESENT: appropriate affect Skin exam: PRESENT: other - Erythematous area on his right abdomen in the area of the tick bite. Results Laboratory Results: 03/01/17 05:09 03/01/17 05:09 Impressions: Chest X-Ray 02/25/17 12:40 IMPRESSION: NO ACUTE RADIOGRAPHIC FINDING IN THE CHEST. Lung Scan-VQ NM 02/25/17 21:43 IMPRESSION: NORMAL VENTILATION-PERFUSION LUNG SCAN. NEGATIVE FOR PULMONARY EMBOLI. Qualifiers PATEINT BEING DISCHARGED WITH ANY OF THE FOLLOWING DIAGNOSIS?: No Plan Discharge Plan: Is discharged home in stable condition. Will follow up with primary care doctor in 1 week. Time Spent: Greater than 30 Minutes
[2017-03-03 07:05] LABS: LYME DISEASE IGG AND IGM AB <0.91 ISR (0.00-0.90); ROCKY MTN SPOTTED FEV IGG EIA Positive (Negative); ROCKY MTN SPOTTED FEV IGG IFA <1:64 (Neg <1:64)
--- NOTE | 2017-03-03 09:46 | PDOC PROGRESS REPORT ---
Subjective Progress Note for:: 03/02/17 Subjective:: Progress note for March 02, 2017. Patient was seen prior to discharge and appointment given for follow-up. Patient seems to be doing better with gradual improvement. Pt is denying any chest arm or neck discomfort. Patient denying any PND, orthopnea. Patient denied any sustained palpitations, dizziness, syncope, near syncope. Patient denying any fever chills. Patient denying any other significant discomfort. Patient is maintaining atrial fibrillation but heart rate is better controlled. Patient tolerating beta blockers and calcium channel blockers. Patient platelet count still remains low. Review of systems: Rest review of systems negative. Medications: Medications have been reviewed. Physical Exam Vital Signs: Temp Pulse Resp BP Pulse Ox 97.5 F 80 18 108/65 97 03/02/17 10:25 03/02/17 10:25 03/02/17 10:25 03/02/17 10:25 03/02/17 10:25 Intake & Output 03/02/17 03/03/17 03/04/17 06:59 06:59 06:59 Intake Total 2378 Output Total 2210 Balance 168 Weight 86.2 kg Exam: GENERAL: well-nourished and in no acute distress. Alert and oriented x3 HEAD: Atraumatic, normocephalic. EYES: Pupils equal round and reactive to light, extraocular movements intact, sclera anicteric, conjunctiva are normal. ENT: TMs normal, nares patent, oropharynx clear without exudates. Moist mucous membranes. No oral ulcerations or bleeding gums noted NECK: supple without lymphadenopathy. Trachea is central. No cervical or axillary lymphadenopathy noted. Carotids are 2+, JVD WNL LUNGS: Respiration seems nonlabored, no significant accessory muscle action noted. Breath sounds clear to auscultation bilaterally and equal noted. No wheezes rales or rhonchi noted. No significant dullness noted on percussion. CHEST: Palpation of the chest wall shows no significant chest wall tenderness. No other significant abnormalities noted. 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 ABDOMEN: Soft, no significant tenderness appreciated, normoactive bowel sounds. No guarding, no rebound. No rigidity noted . No masses appreciated. EXTREMITIES: Pedal pulses are 1-2+, no calf tenderness noted. No clubbing or cyanosis.trace to 1+ pedal edema noted NEUROLOGICAL: Focused neurological exam showed no significant neurologic deficit. Normal speech, no focal weakness appreciated. PSYCH: Normal mood, normal affect. Judgment and insight within normal limits. SKIN: No significant ecchymosis, rash, ulcerations or signs of pruritus noted. MUSCULOSKELETAL EXAM: No significant joint swelling noted. Results Laboratory Results: 03/01/17 05:09 03/01/17 05:09 EKG Comments: Twelve-lead EKG from last night reviewed. It showed atrial fibrillation with heart rate of [address]-T wave changes are noted. Impressions: Chest X-Ray 02/25/17 12:40 IMPRESSION: NO ACUTE RADIOGRAPHIC FINDING IN THE CHEST. Lung Scan-VQ NM 02/25/17 21:43 IMPRESSION: NORMAL VENTILATION-PERFUSION LUNG SCAN. NEGATIVE FOR PULMONARY EMBOLI. Assessment & Plan - Diagnosis (1) Atrial fibrillation with rapid ventricular response Is this a current diagnosis for this admission?: Yes (2) Pancytopenia Is this a current diagnosis for this admission?: Yes (3) Chronic sinusitis Qualifiers: Sinusitis location: unspecified location Qualified Code(s): J32.9 - Chronic sinusitis, unspecified Is this a current diagnosis for this admission?: Yes (4) Hyponatremia Is this a current diagnosis for this admission?: Yes (5) Fever Qualifiers: Fever type: unspecified Qualified Code(s): R50.9 - Fever, unspecified Is this a current diagnosis for this admission?: Yes - Notes Notes: Atrial fibrillation with rapid ventricular response: Heart rate response was noted to be satisfactory this morning. Feel that risk-benefit assessment did not favor Anticoagulation therapy's point because of thrombocytopenia, low chads score, however needs to be reassessed at a periodic basis. Febrile illness: Patient has been afebrile currently. I am told by the hospitalist that patient tested positive for [place] spotted fever. She had a history of tick bite. Abnormal liver function test: possibly related to cirrhosis of liver. Recommend follow-up LFTs as an outpatient. Pancytopenia: Exact etiology not clear but could be bone marrow suppression from alcohol/sepsis/other hematologic problem. Patient had evaluation by a flour inspector who feels that pancytopenia most likely related to cirrhosis of the liver. Hyponatremia: continue with fluid restriction. Serum sodium has improved. Patient was advised to report any symptoms of strokes or mini strokes. Patient was educated about it. Patient's talked with. He should follow-up with his primary care physician. I am available for cardiology follow-up. This was related to patient's - Time Time with patient: 15-25 minutes - CODE STATUS was discussed, patient remains full code. Surrogate decision-maker unchanged. Multiple medical problems were addressed. More than 50% of the time spent coordinating care, discussing management plans with involved caregivers. Management plans discussed with involved personnels. Medical decision making was of moderate to high complexity , patient's has multiple comorbidities. Medications reviewed and adjusted accordingly: Yes
== END 2017-03-02 11:14 | disposition home or self-care (01) | DRG 868 ==
LOC: ER 11:52 → EH 16:22 → UNDOADMIN 16:22 → 3N 17:35 → EH 17:35 → 3N 17:44
DX: A77.0 Spotted fever due to Rickettsia rickettsii (principal); E87.1 Hypo-osmolality and hyponatremia; I48.91 Unspecified atrial fibrillation; D69.6 Thrombocytopenia, unspecified; I10 Essential (primary) hypertension; K57.90 Diverticulosis of intestine, part unspecified, without perforation or abscess without bleeding; J32.9 Chronic sinusitis, unspecified; J44.9 Chronic obstructive pulmonary disease, unspecified; E11.9 Type 2 diabetes mellitus without complications; K74.60 Unspecified cirrhosis of liver; Z79.899 Other long term (current) drug therapy; I25.2 Old myocardial infarction; Z89.612 Acquired absence of left leg above knee; Z87.891 Personal history of nicotine dependence
CPT/HCPCS: 36415; 71010; 78582; 80048; 80053; 80162; 81001; 82550; 82553; 82803; 83605; 84439; 84443; 84481; 84484; 85025; 85027; 85362; 85379; 85384; 85610; 85730; 86617; 86618; 86757; 87086; 93005; 93010; 93306; 96361; 96365; 96366; 96368; 96375; 96376; 99291; A9540; A9567; G8978-GP; G8979-GP; G8980-GP; J3480; J3490; J7030; J7060; J7120; Q9969; S0164

== ENCOUNTER 2020-03-14 09:08 | Inpatient (IN) | payer MEDICARE, BC ==
[2020-03-14 10:22] LABS: APPEARANCE,URINE CLEAR; BILIRUBIN,URINE NEGATIVE (NEGATIVE); COLOR,URINE YELLOW; GLUCOSE, URINE NEGATIVE (NEGATIVE); KETONES,URINE TRACE mg/dL (NEGATIVE); LEUKOCYTE ESTERASE,URINE NEGATIVE (NEGATIVE); NITRITE,URINE NEGATIVE (NEGATIVE); PROTEIN,URINE NEGATIVE (NEGATIVE); URINE SPECIFIC GRAVITY 1.012; UROBILINOGEN,URINE NEGATIVE mg/dL (<2.0)
[2020-03-14 10:23] LABS: PROTHROMBIN TIME 15.3 SEC (11.4-15.4)
[2020-03-14] MEDS ORDERED: DILTIAZEM HCL INJ 25 MG/5 ML VIAL IV ONE (10:23)
[2020-03-14] MEDS ORDERED: DILTIAZEM HCL/D5W 125 MG/125 ML RTUINJ IV PRN (10:23)
[2020-03-14 10:42] LABS: ALBUMIN 3.9 g/dL (3.5-5.0); ALKALINE PHOSPHATASE 152 U/L (38-126); ANION GAP 11 (5-19); ASPARTATE AMINO TRANSFERASE 46 U/L (17-59); BILIRUBIN,DIRECT 0.5 mg/dL (0.0-0.4); BILIRUBIN,TOTAL 1.1 mg/dL (0.2-1.3); BLOOD UREA NITROGEN 20 mg/dL (7-20); CALCIUM 9.2 mg/dL (8.4-10.2); CARBON DIOXIDE 26 mmol/L (22-30); CHLORIDE 86 mmol/L (98-107); CREATINE KINASE 98 U/L (55-170); GLUCOSE 111 mg/dL (75-110); POTASSIUM 5.1 mmol/L (3.6-5.0); TOTAL PROTEIN 7.4 g/dL (6.3-8.2)
[2020-03-14 10:45] LABS: HEMATOCRIT 37.6 % (37.9-51.0); HEMOGLOBIN 13.2 g/dL (13.5-17.0); MEAN CORPUSCULAR HEMOGLOBIN 36.2 pg (27.0-33.4); MEAN CORPUSCULAR VOLUME 103 fl (80-97); PLATELET COUNT 256 10^3/uL (150-450); RED BLOOD COUNT 3.65 10^6/uL (4.35-5.55); RED CELL DISTRIBUTION WIDTH 13.3 % (11.5-14.0); WHITE BLOOD COUNT 8.7 10^3/uL (4.0-10.5)
[2020-03-14 10:54] LABS: ABSOLUTE LYMPHOCYTES# (MANUAL) 0.4 10^3/uL (0.5-4.7); ABSOLUTE MONOCYTES # (MANUAL) 0.5 10^3/uL (0.1-1.4); BASOPHILS % (MANUAL) 0 % (0-2); CREATINE KINASE MB 5.36 ng/mL (<4.55); EOSINOPHILS % (MANUAL) 2 % (0-6); LYMPHOCYTES % (MANUAL) 5 % (13-45); MONOCYTES % (MANUAL) 6 % (3-13); PLATELET COMMENT ADEQUATE; RBC MORPHOLOGY COMMENT NORMO-CYTIC/CHROMIC; SEGMENTED NEUTROPHILS % (MAN) 87 % (42-78); TOTAL CELLS COUNTED 100; TROPONIN I 0.014 ng/mL
--- NOTE | 2020-03-14 11:10 | ER Document Report ---
Entered by TIFFANIE HAYS SCRIBE 03/14/20 1014 Acting as scribe for:LINDA LOUISE MD ED General - General Chief Complaint: Leg Swelling Stated Complaint: WEAKNESS,LEG SORES,DRAINAGE Time Seen by Provider: 03/14/20 10:10 Primary Care Provider: BREANNE ALY MD [Primary Care Provider] - Follow up as needed Information source: Patient Notes: This 85 year old male patient presents to the emergency department today with complaints of leg swelling for the last two weeks. Patient reports that he has been taking 600 mg of ibuprofen every 4-6 hours for this leg swelling and because he has not seen any change in the swelling with this he decided to come in. Patient mentions an area on his left arm and left leg that he has been itching at, stating that it "started out as a few scrapes but then i kept scratching it". Patient denies any shortness of breath, fevers, or cough. TRAVEL OUTSIDE OF THE [place] IN LAST 30 DAYS: No - Related Data Allergies/Adverse Reactions: No Known Allergies Allergy (Verified 07/29/17 10:12) Past Medical History - General Information source: Patient - Social History Smoking Status: Former Smoker - quit 10-15 years ago Cigarette use (# per day): No Chew tobacco use (# tins/day): No Frequency of alcohol use: drinks 4 oz. 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 Past Surgical History: Reports: Other - Abdominal surgery for ruptured peptic ulcer disease and multiple sinus surg - Immunizations Hx Diphtheria, Pertussis, Tetanus Vaccination: No Review of Systems - Review of Systems Constitutional: denies: Fever EENT: No symptoms reported Cardiovascular: No symptoms reported Respiratory: denies: Cough, Short of breath Gastrointestinal: No symptoms reported Genitourinary: No symptoms reported Male Genitourinary: No symptoms reported Musculoskeletal: See HPI, Leg swelling, Ankle swelling Skin: See HPI, Change in color, Lesions, Rash Hematologic/Lymphatic: No symptoms reported Neurological/Psychological: No symptoms reported -: Yes All other systems reviewed and negative Physical Exam - Vital signs Vitals: Temp 97.8 F 03/14/20 09:09 - Notes Notes: Physical Exam: General: Alert, appears age appropriate. HEENT: Normocephalic. Atraumatic. PERRL. Extraocular movements intact. Oropharynx clear. Neck: Supple. Non-tender. Respiratory: Mildly tachypneic. Clear and equal breath sounds bilaterally. Cardiovascular: Irregularly irregular, tachycardic. Abdominal: Obese. Non-tender. No distension. Normal Bowel Sounds. Back: No gross abnormalities. Extremities: Moves all four extremities. Upper extremities: Normal inspection. Normal ROM. Lower extremities: 2-3+ edema bilaterally Neurological: Normal cognition. AAOx4. Normal speech. Psychological: Normal affect. Normal Mood. Skin: Left dorsal forearm has large area of excoriation and blistering. Left medial proximal lower leg has an area of erythema, blistering, and excoriations. Course - Vital Signs Vital signs: Temp Pulse Resp BP Pulse Ox 97.4 F 141 H 22 H 120/85 94 03/14/20 09:15 03/14/20 09:15 03/14/20 15:31 03/14/20 15:31 03/14/20 15:31 - Laboratory Result Diagrams: 03/14/20 10:10 03/14/20 10:10 Laboratory results interpreted by me: 03/14/20 03/14/20 03/14/20 10:10 10:10 10:10 RBC 3.65 L Hgb 13.2 L Hct 37.6 L MCV 103 H MCH 36.2 H Seg Neuts % (Manual) 87 H Lymphocytes % (Manual) 5 L Abs Lymphs (Manual) 0.4 L ESR Sodium 122.9 L Potassium 5.1 H Chloride 86 L Glucose 111 H Serum Osmolality Direct Bilirubin 0.5 H Alkaline Phosphatase 152 H CK-MB (CK-2) 5.36 H C-Reactive Protein NT-Pro-B Natriuret Pep Urine Ketones Urine Blood Urine Ascorbic Acid 03/14/20 03/14/20 03/14/20 10:10 10:10 10:10 RBC Hgb Hct MCV MCH Seg Neuts % (Manual) Lymphocytes % (Manual) Abs Lymphs (Manual) ESR 45 H Sodium Potassium Chloride Glucose Serum Osmolality Direct Bilirubin Alkaline Phosphatase CK-MB (CK-2) C-Reactive Protein 141.2 H NT-Pro-B Natriuret Pep Urine Ketones TRACE H Urine Blood SMALL H Urine Ascorbic Acid 40 H 03/14/20 03/14/20 10:10 10:10 RBC Hgb Hct MCV MCH Seg Neuts % (Manual) Lymphocytes % (Manual) Abs Lymphs (Manual) ESR Sodium Potassium Chloride Glucose Serum Osmolality 264 L Direct Bilirubin Alkaline Phosphatase CK-MB (CK-2) C-Reactive Protein NT-Pro-B Natriuret Pep 8190 H Urine Ketones Urine Blood Urine Ascorbic Acid - Diagnostic Test Radiology reviewed: Image reviewed, Reports reviewed - Chest x-ray shows mild cardiomegaly without other abnormalities. - EKG Interpretation by Me EKG shows normal: [place], Intervals, QRS Complexes, ST-T Waves. abnormal: Sinus rhythm Rate: Tachycardia - 120 Rhythm: A.Fib [place]/QRS: LAHB/LAFB Critical Care Note - Critical Care Note Total time excluding time spent on procedures (mins): 35 Comments: At least 35 minutes spent evaluating patient, multiple reevaluations of his response to medications and drips. Discussions with lead hospitalist and excepting admitting hospitalist. Discharge - Discharge Clinical Impression: Atrial fibrillation with rapid ventricular response, Hyponatremia, Edema, peripheral, Cellulitis of leg, left, Cellulitis of forearm, left Condition: Fair Disposition: AGAINST MEDICAL ADVICE Admitting Provider: [place] (Hospitalist) Unit Admitted: IMCU Referrals: BREANNE ALY MD [Primary Care Provider] - Follow up as needed I personally performed the services described in the documentation, reviewed and edited the documentation which was dictated to the scribe in my presence, and it accurately records my words and actions.
--- NOTE | 2020-03-14 11:47 | RADIOLOGY REPORT (SQ) ---
EXAM DESCRIPTION: CHEST SINGLE VIEW IMAGES COMPLETED DATE/TIME: 03/14/2020 11:29 am REASON FOR STUDY: A. fib with RVR, peripheral edema, tachypnea COMPARISON: 03/03/2009. EXAM PARAMETERS: NUMBER OF VIEWS: One view. TECHNIQUE: Single frontal radiographic view of the chest acquired. RADIATION DOSE: NA LIMITATIONS: None. FINDINGS: LUNGS AND PLEURA: No opacities, masses or pneumothorax. No pleural effusion. MEDIASTINUM AND HILAR STRUCTURES: No masses. Contour normal. HEART AND VASCULAR STRUCTURES: Mild cardiomegaly. BONES: No acute findings. HARDWARE: None in the chest. OTHER: No other significant finding. IMPRESSION: MILD CARDIOMEGALY. NO ACUTE FINDINGS. TECHNICAL DOCUMENTATION: JOB ID: [id number] 2010 [employer]- All Rights Reserved Reading location - IP/workstation name: [email or web address]
--- NOTE | 2020-03-14 12:23 | EKG REPORT ---
SEVERITY:- ABNORMAL ECG - ATRIAL FIBRILLATION, V-RATE 86-179 VENTRICULAR PREMATURE COMPLEX LEFT ANTERIOR FASCICULAR BLOCK : Confirmed by: Oni Moody MD 14-Mar-2020 12:22:40
[2020-03-14] MEDS ORDERED: FAMOTIDINE INJ/PF 20 MG/2 ML SDV IV ONE (13:17)
[2020-03-14] MEDS ORDERED: ONDANSETRON HCL INJ/PF 4 MG/2 ML SDV IV PRN (13:49)
[2020-03-14] MEDS ORDERED: ACETAMINOPHEN 325 MG TABLET PO PRN (13:49)
[2020-03-14] MEDS ORDERED: MAG HYDROX/AL HYDROX/SIMETH SUSP 30 ML UDCUP PO PRN (13:49)
[2020-03-14] MEDS ORDERED: ENOXAPARIN SODIUM INJ 40 MG/0.4 ML DISP.SYRIN SUBCUT SCH (14:00)
[2020-03-14] MEDS ORDERED: DILTIAZEM HCL 60 MG TABLET PO SCH ×2 (14:00→15:00)
[2020-03-14] MEDS ORDERED: PERMETHRIN 5% CREAM 60 GM TP ONE (14:15)
[2020-03-14] MEDS ORDERED: ENOXAPARIN SODIUM INJ 100 MG/1 ML DISP.SYRIN SUBCUT SCH (14:15)
[2020-03-14] MEDS ORDERED: CEFEPIME 2 GM/D5W RTU 2 GM/50 ML RTUPB IV SCH (14:30)
[2020-03-14] MEDS ORDERED: FUROSEMIDE INJ/PF 40 MG/4 ML SDV IV ONE (14:30)
--- NOTE | 2020-03-14 14:37 | PDOC H&P ---
History of Present Illness Admission Date/PCP: 03/14/20 13:22 BREANNE ALY MD Patient complains of: Lower extremity swelling History of Present Illness: JUDIE MOORE JR is a 85 year old male with a distant history of paroxysmal atrial flutter, [place] spotted fever, who presents to the hospital with complaints of worsening lower extremity swelling for the past 2 weeks. Patient also acknowledges new redness in the area since 2 weeks ago. Has some demarcated redness in both lower extremities but also has this in his left arm. States that the area has been itching and he started scratching it which caused the redness to increase significantly. Also admits to some pruritus in his fingers. In terms of his lower extremity swelling, he denies excessive salt consumption. He also denies PND, orthopnea, shortness of breath, or chest pain. States that he has a history of atrial flutter in [address] and was seen by Dr[address] Levin but has not been on any medication since then. Past Medical History Cardiac Medical History: Reports: Atrial Fibrillation - 02/25/17 Denies: Coronary Artery Disease, Myocardial Infarction, Hypertension Pulmonary Medical History: Denies: Asthma, Bronchitis, Chronic Obstructive Pulmonary Disease (COPD), Pneumonia Neurological Medical History: Denies: Seizures GI Medical History: Reports: Cirrhosis Musculoskeltal Medical History: Reports: Arthritis - RIGHT SHOULDER Hematology: Denies: Anemia Past Surgical History Past Surgical History: Reports: Orthopedic Surgery - Left AKA, Other - Abdominal surgery for ruptured peptic ulcer disease and multiple sinus surg Denies: Pacemaker Social History Lives with: Family Smoking Status: Former Smoker - quit 10-15 years ago Electronic Cigarette use?: No Frequency of Alcohol Use: Occasional - Patient drinks on a regular basis. Hx Recreational Drug Use: No Drugs: None Hx Prescription Drug Abuse: No - Advance Directive Resuscitation Status: Full Code Family History Family History: denies: CAD Parental Family History Reviewed: Yes Children Family History Reviewed: Unknown Sibling(s) Family History Reviewed.: Unknown Medication/Allergy Home Medications: Diltiazem HCl [Cardizem] 120 mg PO DAILY 08/04/17 Ketorolac Tromethamine [Toradol 10 mg Tablet] 10 mg PO Q6HP PRN #25 tablet 08/04/17 Allergies/Adverse Reactions: No Known Allergies Allergy (Verified 07/29/17 10:12) Review of Systems Constitutional: ABSENT: chills, fever(s) Eyes: ABSENT: visual disturbances Ears: ABSENT: hearing changes Nose, Mouth, and Throat: ABSENT: headache(s) Cardiovascular: PRESENT: edema. ABSENT: chest pain, orthropnea Respiratory: ABSENT: cough, dyspnea Gastrointestinal: ABSENT: abdominal pain, nausea, vomiting Genitourinary: ABSENT: dysuria Integumentary: ABSENT: diaphoresis Neurological: ABSENT: dizziness Endocrine: ABSENT: polyuria Allergic/Immunologic: ABSENT: seasonal rhinorrhea Physical Exam Vital Signs: Temp Pulse Resp BP Pulse Ox 97.4 F 141 H 17 142/82 H 95 03/14/20 09:15 03/14/20 09:15 03/14/20 12:50 03/14/20 12:50 03/14/20 12:50 Intake & Output 03/13/20 03/14/20 03/15/20 06:59 06:59 06:59 Intake Total 2 Balance 2 Weight 96.7 kg General appearance: PRESENT: no acute distress, cooperative Mouth exam: PRESENT: neck supple Neck exam: ABSENT: JVD Respiratory exam: PRESENT: clear to auscultation madi, unlabored. ABSENT: tachypnea, wheezes Cardiovascular exam: PRESENT: irregular rhythm, +S1, +S2, systolic murmur, tachycardia GI/Abdominal exam: PRESENT: soft. ABSENT: rebound, rigid, tenderness Extremities exam: PRESENT: +2 edema, other - Patches of erythema in the left leg as well as right leg and with the mashes left forearm. Punctate lesions in between finger webs Neurological exam: PRESENT: alert, awake, oriented to person, oriented to place, oriented to time Psychiatric exam: ABSENT: agitated, anxious Skin exam: ABSENT: jaundice Results Laboratory Results: 03/14/20 10:10 03/14/20 10:10 03/14/20 03/14/20 03/14/20 10:10 10:10 10:10 WBC 8.7 RBC 3.65 L Hgb 13.2 L Hct 37.6 L MCV 103 H MCH 36.2 H MCHC 35.0 RDW 13.3 Plt Count 256 Seg Neutrophils % Not Reportable Sodium 122.9 L Potassium 5.1 H Chloride 86 L Carbon Dioxide 26 Anion Gap 11 BUN 20 Creatinine 0.63 Est GFR ( Amer) > 60 Glucose 111 H Calcium 9.2 Total Bilirubin 1.1 AST 46 Alkaline Phosphatase 152 H C-Reactive Protein Total Protein 7.4 Albumin 3.9 Urine Color YELLOW Urine Appearance CLEAR Urine pH 6.0 Ur Specific [place] 1.012 Urine Protein NEGATIVE Urine Glucose (UA) NEGATIVE Urine Ketones TRACE H Urine Blood SMALL H Urine Nitrite NEGATIVE Ur Leukocyte Esterase NEGATIVE Urine WBC (Auto) 4 Urine RBC (Auto) 11 03/14/20 10:10 WBC RBC Hgb Hct MCV MCH MCHC RDW Plt Count Seg Neutrophils % Sodium Potassium Chloride Carbon Dioxide Anion Gap BUN Creatinine Est GFR ( Amer) Glucose Calcium Total Bilirubin AST Alkaline Phosphatase C-Reactive Protein 141.2 H Total Protein Albumin Urine Color Urine Appearance Urine pH Ur Specific [place] Urine Protein Urine Glucose (UA) Urine Ketones Urine Blood Urine Nitrite Ur Leukocyte Esterase Urine WBC (Auto) Urine RBC (Auto) 03/14/20 03/14/20 03/14/20 10:10 10:10 10:10 Creatine Kinase 98 CK-MB (CK-2) 5.36 H Troponin I 0.014 NT-Pro-B Natriuret Pep 8190 H Impressions: Chest X-Ray 03/14/20 11:12 IMPRESSION: MILD CARDIOMEGALY. NO ACUTE FINDINGS. Assessment and Plan - Diagnosis (1) Paroxysmal atrial fibrillation with rapid ventricular response Is this a current diagnosis for this admission?: Yes Plan: On diltiazem drip currently. Will admit to IMCU. Start p.o. diltiazem 60 mg every [address] Levin. Chads vasc score of 3 at least given her hypertension and age. Will start on therapeutic Lovenox. (2) Hyponatremia Is this a current diagnosis for this admission?: Yes Plan: Significant hyponatremia of 122. Patient may be hypervolemic given elevated BNP and significant lower extremity edema. Will place patient on fluid restriction of 1500 cc and Lasix IV. Monitor serial BMPs. Check serum, urine osmolarity, urine sodium, TSH, a.m. cortisol. (3) Edema, peripheral Is this a current diagnosis for this admission?: Yes Plan: Patient seems to have 2-3+ edema in his lower extremities. Denies PND orthopnea or shortness of breath. Does have a cardiac murmur. BNP is elevated. It is possible that patient could have congestive heart failure likely chronic secondary to probable longstanding tachyarrhythmia. Will check echocardiogram to ascertain EF. Diuresis with Lasix. (4) Hypertension Qualifiers: Hypertension type: essential hypertension Qualified Code(s): I10 - Essential (primary) hypertension Is this a current diagnosis for this admission?: Yes Plan: Started on Lasix. Will likely start on an ACEI/ARB once hyperkalemia improves. Avoid CCB given lower extremity swelling and avoid thiazides. (5) Cellulitis of forearm, left Is this a current diagnosis for this admission?: Yes Plan: Nonpurulent cellulitis. I will place patient on cefepime. Blood cultures obtained. Seems to have developed a cellulitis after excoriations on the forearm. (6) Cellulitis of leg, left Is this a current diagnosis for this admission?: Yes Plan: Seems to have introduced infection into his leg after excoriations. ABX as above. (7) Pruritic rash Is this a current diagnosis for this admission?: Yes Plan: Involving left arm and legs. Patient seems to have punctate lesions in between his finger webs which are consistent with scabies. I will give him a treatment of permethrin. Contact isolation. - Time Time Spent with patient: 35 or more minutes
[2020-03-14 16:07] VITALS: BP 120/85
[2020-03-14] MEDS ORDERED: FUROSEMIDE INJ/PF 40 MG/4 ML SDV IV SCH (18:00)
--- NOTE | 2020-03-14 18:59 | Left Against Medical Advice ---
Against Medical Advice Admission Date/Time: Primary Care Provider: BREANNE ALY MD Date of Patient Emigration: 03/14/20 - Diagnosis: (1) Paroxysmal atrial fibrillation with rapid ventricular response Is this a current diagnosis for this admission?: Yes (2) Hyponatremia Is this a current diagnosis for this admission?: Yes (3) Edema, peripheral Is this a current diagnosis for this admission?: Yes (4) Hypertension Is this a current diagnosis for this admission?: Yes (5) Cellulitis of forearm, left Is this a current diagnosis for this admission?: Yes (6) Cellulitis of leg, left Is this a current diagnosis for this admission?: Yes (7) Pruritic rash Is this a current diagnosis for this admission?: Yes - Summary: Summary: Please see Admission and Progress Notes as well. JUDIE MOORE JR is a 85 M, who LEFT AGAINST MEDICAL ADVICE. The Patient was admitted on .
[2020-03-15] MEDS ORDERED: ENOXAPARIN SODIUM INJ 40 MG/0.4 ML DISP.SYRIN SUBCUT SCH (10:00)
== END 2020-03-15 16:21 | disposition left against medical advice (07) | DRG 309 ==
LOC: ER 09:08 → UNDOADMIN 13:22 → EH 13:22 → ER 16:35
PROVIDERS: ADMIT Internal Medicine; ATTEND Internal Medicine
DX: I48.0 Paroxysmal atrial fibrillation (principal); E87.1 Hypo-osmolality and hyponatremia; L03.114 Cellulitis of left upper limb; L03.116 Cellulitis of left lower limb; L29.9 Pruritus, unspecified; E11.9 Type 2 diabetes mellitus without complications; Z87.891 Personal history of nicotine dependence; I10 Essential (primary) hypertension
CPT/HCPCS: 36415; 71045; 80053; 81001; 82550; 82553; 83880; 83930; 84443; 84484; 85025; 85610; 85652; 86140; 87040; 93005; 93010; 93306; 96365; 96366; 99285; J3490

== ENCOUNTER → 2020-03-22 | Outpatient (CLI) | payer MEDICARE, BC ==
--- NOTE | 2020-03-22 11:08 | RADIOLOGY REPORT (SQ) ---
EXAM DESCRIPTION: VENOUS BILATERAL LOWER IMAGES COMPLETED DATE/TIME: 03/22/2020 10:26 am REASON FOR STUDY: EDEMA R60.9 EDEMA, UNSPECIFIED COMPARISON: None. TECHNIQUE: Dynamic and static [place] scale and color images acquired of both lower extremity venous sy stems. Selected spectral images acquired with additional compression and augmentation maneuvers. Imag es stored on PACS. LIMITATIONS: Soft tissue swelling limits evaluation of tibial vessels. FINDINGS: RIGHT LEG COMMON FEMORAL AND FEMORAL: Normal phasicity, compression and augmentation. No visualized echogenic m aterial on [place] scale. No defects on color images. POPLITEAL: Normal compression and augmentation. No visualized echogenic material on [place] scale. No de fects on color images. CALF VESSELS: Normal compression and augmentation. No visualized echogenic material on [place]te[place] scale. No defects on color image. GSV AND SSV: Normal compression. No visualized echogenic material on [place]te[place] scale. No defects on color images. ANY DEEP VENOUS INSUFFICIENCY: Not evaluated. ANY EVIDENCE OF POPLITEAL CYST: No. OTHER: Subcutaneous edema LEFT LEG COMMON FEMORAL AND FEMORAL: Normal phasicity, compression and augmentation. No visualized echogenic m aterial on [place]tega scale. No defects on color images. POPLITEAL: Normal compression and augmentation. No visualized echogenic material on [place]te[place] scale. No de fects on color images. CALF VESSELS: Normal compression and augmentation. No visualized echogenic material on ortega scale. No defects on color images. GSV AND SSV: Normal compression. No visualized echogenic material on ortega scale. No defects on color images. ANY DEEP VENOUS INSUFFICIENCY: Not evaluated. ANY EVIDENCE POPLITEAL CYST: No. OTHER: Subcutaneous edema. IMPRESSION: 1. No evidence of DVT or SVT in either leg as visualized. 2. Bilateral lower extremity subcutaneous edema. TECHNICAL DOCUMENTATION: JOB ID: [id number] 2010 [employer]- All Rights Reserved Reading location - IP/workstation name: [email or web address]
== END ==
LOC: SP 08:49
PROVIDERS: ATTEND Family Medicine
DX: R60.9 Edema, unspecified (principal)
CPT/HCPCS: 93970

== ENCOUNTER 2020-07-17 11:52 | Emergency (ER) | payer MEDICARE, BC ==
--- NOTE | 2020-07-17 12:24 | ER Document Report ---
ED Medical Screen (RME) - General Chief Complaint: Rash Stated Complaint: LEG SWELLING,RASH Time Seen by Provider: 07/17/20 12:04 Primary Care Provider: BREANNE ALY MD [Primary Care Provider] - Follow up as needed Information source: Patient, Relative Notes: Patient was sent here from his doctor's office due to A. fib with RVR. Patient had a heart rate of 150 in the office although family refused EMS transport. Patient typically has good control of his A. fib. Patient also has had a 30 pound weight loss recently. Patient complains of rash to chest and extremities for the past 4 months. Family member with patient has concerns that patient has had bizarre behavior recently with occasional confusion and is concerned that patient may have been drinking recently or having other issues because he has not been eating as much. Patient's family members also wanting to see about getting a power of commercial litigation attorney and having discharge planning consulted. I have greeted and performed a rapid initial assessment of this patient. A comprehensive ED assessment and evaluation of the patient, analysis of test results and completion of the medical decision making process will be conducted by additional ED providers. TRAVEL OUTSIDE OF THE [place] IN LAST 30 DAYS: No - Related Data Allergies/Adverse Reactions: No Known Allergies Allergy (Verified 07/29/17 10:12) Past Medical History - Past Medical History Cardiac Medical History: Reports: Hx Atrial Fibrillation - 02/25/17, Hx Congestive Heart Failure Denies: Hx Coronary Artery Disease, Hx Heart Attack, Hx Hypertension Pulmonary Medical History: Denies: Hx Asthma, Hx Bronchitis, Hx COPD, Hx Pneumonia Neurological Medical History: Denies: Hx Cerebrovascular Accident, Hx Seizures Endocrine Medical History: Reports: Hx Diabetes Mellitus Type 2 GI Medical History: Reports: Hx Cirrhosis Musculoskeltal Medical History: Reports Hx Arthritis - RIGHT SHOULDER Past Surgical History: Reports: Hx Orthopedic Surgery - Left AKA, Other - Abdominal surgery for ruptured peptic ulcer disease and multiple sinus surg. Denies: Hx Pacemaker - Immunizations Hx Diphtheria, Pertussis, Tetanus Vaccination: No Physical Exam - Vital signs Vitals: Temp Pulse Resp BP Pulse Ox 97.3 F 70 20 118/77 96 07/17/20 11:57 07/17/20 11:57 07/17/20 11:57 07/17/20 11:57 07/17/20 11:57 - General General appearance: Alert Notes: Patient with erythematous rash to anterior chest upper and lower extremities. Patient with irregularly irregular heart rate at this time. - Cardiovascular Rhythm: Irregularly irregular Course - Vital Signs Vital signs: Temp Pulse Resp BP Pulse Ox 97.3 F 70 20 118/77 96 07/17/20 11:57 07/17/20 11:57 07/17/20 11:57 07/17/20 11:57 07/17/20 11:57 Doctor's Discharge - Discharge Referrals: BREANNE ALY MD [Primary Care Provider] - Follow up as needed
[2020-07-17] MEDS ORDERED: DILTIAZEM HCL INJ 25 MG/5 ML VIAL ONE (12:53)
[2020-07-17] MEDS ORDERED: DILTIAZEM HCL/D5W 125 MG/125 ML RTUINJ IV ONE (12:53)
[2020-07-17] MEDS ORDERED: DILTIAZEM HCL INJ 25 MG/5 ML VIAL IV ONE (13:05)
[2020-07-17] MEDS ORDERED: DILTIAZEM HCL/D5W 125 MG/125 ML RTUINJ IV PRN (13:11)
--- NOTE | 2020-07-17 13:22 | RADIOLOGY REPORT (SQ) ---
EXAM DESCRIPTION: CHEST SINGLE VIEW IMAGES COMPLETED DATE/TIME: 07/17/2020 1:07 pm REASON FOR STUDY: hx afib, RVR COMPARISON: AP view of the chest from 03/14/2020. EXAM PARAMETERS: NUMBER OF VIEWS: One view. TECHNIQUE: An AP view of the chest was obtained. RADIATION DOSE: NA LIMITATIONS: None. FINDINGS: LUNGS AND PLEURA: No consolidation, pleural effusion or pneumothorax. MEDIASTINUM AND HILAR STRUCTURES: No mediastinal or hilar contour abnormality. HEART AND VASCULAR STRUCTURES: The cardiac silhouette is enlarged. BONES: No acute findings. HARDWARE: Surgical clips that project over the vasculature junction and within the left upper quadran t. OTHER: No other finding. IMPRESSION: Cardiomegaly without a superimposed acute cardiopulmonary process. TECHNICAL DOCUMENTATION: JOB ID: [id number] 2010 [employer]- All Rights Reserved Reading location - IP/workstation name: [email or web address]
[2020-07-17 13:23] LABS: ABSOLUTE EOSINOPHILS # (AUTO) 0.1 10^3/uL (0.0-0.6); ABSOLUTE LYMPHOCYTES (AUTO) 0.4 10^3/uL (0.5-4.7); ABSOLUTE MONOCYTES (AUTO) 0.6 10^3/uL (0.1-1.4); ABSOLUTE NEUT (AUTO) 3.2 10^3/uL (1.7-8.2); BASOPHILS % (AUTO) 0.6 % (0-2); EOSINOPHILS % (AUTO) 2.1 % (0-6); HEMOGLOBIN 12.2 g/dL (13.5-17.0); MEAN CORPUSCULAR HEMOGLOBIN 40.3 pg (27.0-33.4); MEAN CORPUSCULAR HGB CONC 35.8 g/dL (32.0-36.0); MONOCYTES % (AUTO) 13.8 % (3-13); PLATELET COUNT 192 10^3/uL (150-450); RED BLOOD COUNT 3.02 10^6/uL (4.35-5.55); RED CELL DISTRIBUTION WIDTH 23.1 % (11.5-14.0); SEGMENTED NEUTROPHILS % (AUTO) 73.5 % (42-78); TOTAL CELLS COUNTED % (AUTO) 100 %; WHITE BLOOD COUNT 4.4 10^3/uL (4.0-10.5)
[2020-07-17 13:29] LABS: MEAN CORPUSCULAR VOLUME 113 fl (80-97)
[2020-07-17] MEDS ORDERED: NORMAL SALINE 500 ML IV ONE ×2 (13:30→14:27)
[2020-07-17 13:37] LABS: ANISOCYTOSIS 3+; OVALOCYTES 1+; POIKILOCYTOSIS 1+; POLYCHROMASIA SLIGHT; TARGET CELLS SLIGHT
[2020-07-17 13:38] LABS: PLATELET COMMENT ADEQUATE
[2020-07-17 13:44] LABS: ALBUMIN 3.7 g/dL (3.5-5.0); ALKALINE PHOSPHATASE 160 U/L (38-126); ANION GAP 12 (5-19); ASPARTATE AMINO TRANSFERASE 41 U/L (17-59); BILIRUBIN,DIRECT 1.4 mg/dL (0.0-0.4); BILIRUBIN,TOTAL 2.1 mg/dL (0.2-1.3); BLOOD UREA NITROGEN 21 mg/dL (7-20); CALCIUM 9.7 mg/dL (8.4-10.2); CARBON DIOXIDE 29 mmol/L (22-30); CHLORIDE 99 mmol/L (98-107); GLUCOSE 97 mg/dL (75-110); POTASSIUM 3.1 mmol/L (3.6-5.0); TOTAL PROTEIN 7.1 g/dL (6.3-8.2)
[2020-07-17 13:46] LABS: ALCOHOL < 10 mg/dL (NONE DETECTED)
[2020-07-17] MEDS ORDERED: POTASSIUM CHLORIDE 20 MEQ PACKET PO ONE (13:47)
--- NOTE | 2020-07-17 13:48 | ER Document Report ---
ED General - General Chief Complaint: Rash Stated Complaint: LEG SWELLING,RASH Time Seen by Provider: 07/17/20 12:04 Primary Care Provider: BREANNE ALY MD [Primary Care Provider] - Follow up as needed TRAVEL OUTSIDE OF THE [place] IN LAST 30 DAYS: No - HPI Notes: Patient is an 85-year-old male with a past medical history of atrial fibrillation who presents with rapid heart rate. Patient was sent from his PCPs office. His PCP was concerned because his heart rate was in the 150s. Patient also has a chronic rash on his abdomen and extremities that he has been scratchi ng. Patient is accompanied by family member. Patient is a poor historian. He denies any other symptoms. No chest pain or shortness of breath. - Related Data Allergies/Adverse Reactions: No Known Allergies Allergy (Verified 07/29/17 10:12) Past Medical History - General Information source: Patient, Relative - Social History Smoking Status: Unknown if Ever Smoked Family History: None, Reviewed & Not Pertinent Patient has homicidal ideation: No - Past Medical History Cardiac Medical History: Reports: Hx Atrial Fibrillation - 02/25/17, Hx Congestive Heart Failure Denies: Hx Coronary Artery Disease, Hx Heart Attack, Hx Hypertension Pulmonary Medical History: Denies: Hx Asthma, Hx Bronchitis, Hx COPD, Hx Pneumonia Neurological Medical History: Denies: Hx Cerebrovascular Accident, Hx Seizures Endocrine Medical History: Reports: Hx Diabetes Mellitus Type 2 GI Medical History: Reports: Hx Cirrhosis Musculoskeletal Medical History: Reports Hx Arthritis - RIGHT SHOULDER Past Surgical History: Reports: Hx Orthopedic Surgery - Left AKA, Other - Abdominal surgery for ruptured peptic ulcer disease and multiple sinus surg. Denies: Hx Pacemaker - Immunizations Hx Diphtheria, Pertussis, Tetanus Vaccination: No Review of Systems - Review of Systems Notes: CONSTITUTIONAL: No fever, fatigue or weight loss. SKIN: Positive for rash. HENT: No congestion, ear pain, or sore throat. EYES: No recent vision problems or eye pain. CARDIOVASCULAR: No chest pain. RESPIRATORY: No cough, shortness of breath, congestion, or wheezing. GASTROINTESTINAL: No abdominal pain, nausea, vomiting GENITOURINARY: No dysuria. MUSCULOSKELETAL: No joint pain or swelling. NEUROLOGIC: No seizures. HEMATOLOGIC: No unusual bruising or bleeding. PSYCHIATRIC: No depression or anxiety. Physical Exam - Vital signs Vitals: Temp Pulse Resp BP Pulse Ox 97.3 F 70 20 118/77 96 07/17/20 11:57 07/17/20 11:57 07/17/20 11:57 07/17/20 11:57 07/17/20 11:57 - General Notes: VITAL SIGNS: Tachycardic GENERAL: No acute distress HEAD: Normal with no signs of head trauma. EYES: EOMI, conjunctiva normal, no discharge. EARS: Hearing grossly intact. NOSE: Normal. NECK: Normal range of motion, no tenderness, supple, no lymphadenopathy, No adenopathy, no JVD. CHEST: Clear breath sounds bilaterally. No wheezes, rales, or rhonchi. CARDIAC: Irregularly irregular. VASCULAR: Trace edema in lower extremities. ABDOMEN: Normal and soft with no tenderness GENITOURINARY: Normal, No tenderness MUSCULOSKELETAL: Good range of motion of all major joints. Extremities without clubbing, cyanosis or edema. NEUROLOGICAL: Alert and oriented x 3. No focal sensory or strength deficits. Speech normal. Follows commands appropriately. PSYCHIATRIC: Normal Affect, judgement and mood. SKIN: Excoriated rash to anterior chest, back, lower extremities and arms. No skin sloughing. No overlying signs of infection. Course - Re-evaluation Re-evalutation: 07/17/20 16:43 Patient is in A. fib with RVR. He was treated with a diltiazem and placed on a drip. He was also given IV fluids. Patient heart rate did have some improvement however he still remained tachycardic. I discussed with his PCP over the phone. His PCP states that patient has recently in the last several months began drinking alcohol. He states that his cognitive function has also declined the last several months. The patient lives with his . The PCP gave the patient a shot of Rocephin and recommended he go to the ER for A. fib with RVR. Patient's family member in the room states that he really has not been taking his medication. He does not believe in medicine. I did recommend patient stay in the hospital for the A. fib and RVR that is difficult to control in the ER. Patient adamantly refused. We also had social work see the patient and the family member. I again urged the patient to stay in the hospital. He refused. He began taking off his EKG leads and wanted to pull out his IV. I informed him that he is risk of disability and if he goes home and he verbalized understanding. He states that he understands this and he just wants to go home. I do believe patient has capacity to make these decisions based on my interaction with him. The family member also believes that he has decision-making capacity. I informed the family member that he needs to begin taking his diltiazem at home as well as the other medications he is prescribed. I did write him for a prescription for prednisone and Pepcid for the itching and the rash. Patient was strongly urged to return to the ER for further treatment. He left AGAINST MEDICAL ADVICE. - Vital Signs Vital signs: Temp Pulse Resp BP Pulse Ox 97.3 F 70 20 115/95 H 84 L 07/17/20 11:57 07/17/20 11:57 07/17/20 15:35 07/17/20 15:35 07/17/20 15:05 - Laboratory Result Diagrams: 07/17/20 12:50 07/17/20 12:50 Laboratory results interpreted by me: 07/17/20 07/17/20 12:50 12:50 RBC 3.02 L Hgb 12.2 L Hct 34.0 L MCV 113 H MCH 40.3 H RDW 23.1 H Lymph % (Auto) 10.0 L [place] % (Auto) 13.8 H Absolute Lymphs (auto) 0.4 L Potassium 3.1 L BUN 21 H Total Bilirubin 2.1 H Direct Bilirubin 1.4 H ALT 60 H Alkaline Phosphatase 160 H - Diagnostic Test Radiology reviewed: Image reviewed, Reports reviewed Discharge - Discharge Clinical Impression: Atrial fibrillation with RVR, Rash, Left against medical advice Condition: Serious Disposition: AGAINST MEDICAL ADVICE Prescriptions: Prednisone [Deltasone 20 mg Tablet] 40 mg PO DAILY 5 Days #10 tablet Famotidine [Pepcid 20 mg Tablet] 20 mg PO DAILY #12 tablet Referrals: BREANNE ALY MD [Primary Care Provider] - Follow up as needed
[2020-07-17] MEDS ORDERED: CEFAZOLIN 1 GM/D5W RTU 1 GM/50 ML RTUPB IV ONE (14:27)
[2020-07-17] MEDS ORDERED: FAMOTIDINE INJ/PF 20 MG/2 ML SDV IV ONE (15:35)
[2020-07-17 16:29] VITALS: BP 115/95
[2020-07-17] MEDS: MAGNESIUM SULFATE/D5W 1 GM/100 ML RTUPB IV SCH (16:29)
--- NOTE | 2020-07-17 16:32 | EKG REPORT ---
SEVERITY:- ABNORMAL ECG - ATRIAL FIBRILLATION, V-RATE 87-176 VENTRICULAR PREMATURE COMPLEX LVH WITH SECONDARY REPOLARIZATION ABNORMALITY : Confirmed by: Alden Ledezma MD 17-Jul-2020 16:32:02
[2020-07-18 14:30] LABS: PATH REVIEW PATHOLOGIST REVIEWED
== END 2020-07-17 16:29 | disposition left against medical advice (07) ==
LOC: ER 11:52
DX: I48.91 Unspecified atrial fibrillation (principal); R21 Rash and other nonspecific skin eruption; E11.9 Type 2 diabetes mellitus without complications; R00.0 Tachycardia, unspecified; Z91.14 Patient's other noncompliance with medication regimen; Z53.20 Procedure and treatment not carried out because of patient's decision for unspecified reasons
CPT/HCPCS: 93005; 99285; 96375; 96365; 96366; 36415; 80307; 83735; 84443; 85025; 80053; 84484; 71045; 93010; J3490 ×3; J7040

== ENCOUNTER 2020-07-17 17:05 | Inpatient (IN) | payer MEDICARE, BC ==
--- NOTE | 2020-07-17 17:41 | ER Document Report ---
ED Medical Screen (RME) - General Chief Complaint: Altered Mental Status Stated Complaint: ALTERED MENTAL STATUS Time Seen by Provider: 07/17/20 17:36 Primary Care Provider: BREANNE ALY MD [Primary Care Provider] - Follow up as needed Notes: Patient was seen here earlier today for skin rash and rapid heart rate. Patient had also been having episodes of confusion. Patient was initially seen and wanted to be discharged. Patient left the emergency department family reports that he was confused the entire ride home not recognizing his home when he arrived. Family states that he has had similar episodes of confusion off and on for some time now. Discharge planning had been consulted and provided family with outpatient resources. I have greeted and performed a rapid initial assessment of this patient. A comprehensive ED assessment and evaluation of the patient, analysis of test results and completion of the medical decision making process will be conducted by additional ED providers. TRAVEL OUTSIDE OF THE [place] IN LAST 30 DAYS: No - Related Data Allergies/Adverse Reactions: No Known Allergies Allergy (Verified 07/29/17 10:12) Past Medical History - Past Medical History Cardiac Medical History: Reports: Hx Atrial Fibrillation - 02/25/17, Hx Congestive Heart Failure Denies: Hx Coronary Artery Disease, Hx Heart Attack, Hx Hypertension Pulmonary Medical History: Denies: Hx Asthma, Hx Bronchitis, Hx COPD, Hx Pneumonia Neurological Medical History: Denies: Hx Cerebrovascular Accident, Hx Seizures Endocrine Medical History: Reports: Hx Diabetes Mellitus Type 2 GI Medical History: Reports: Hx Cirrhosis Musculoskeltal Medical History: Reports Hx Arthritis - RIGHT SHOULDER Past Surgical History: Reports: Hx Orthopedic Surgery - Left AKA, Other - Abdominal surgery for ruptured peptic ulcer disease and multiple sinus surg. Denies: Hx Pacemaker - Immunizations Hx Diphtheria, Pertussis, Tetanus Vaccination: No Physical Exam - Vital signs Vitals: Temp Pulse Resp BP Pulse Ox 97.4 F 79 18 112/77 98 07/17/20 17:25 07/17/20 17:25 07/17/20 17:25 07/17/20 17:25 07/17/20 17:25 - General General appearance: Alert In distress: None Notes: Patient continues with erythematous rash to extremities, patient cooperative in triage, patient does have ready room at this time Course - Vital Signs Vital signs: Temp Pulse Resp BP Pulse Ox 97.4 F 79 18 112/77 98 07/17/20 17:25 07/17/20 17:25 07/17/20 17:25 07/17/20 17:25 07/17/20 17:25 Doctor's Discharge - Discharge Referrals: BREANNE ALY MD [Primary Care Provider] - Follow up as needed
[2020-07-17] MEDS ORDERED: DILTIAZEM HCL/D5W 125 MG/125 ML RTUINJ IV ONE (18:11)
[2020-07-17] MEDS ORDERED: DILTIAZEM HCL INJ 25 MG/5 ML VIAL ONE (18:11)
--- NOTE | 2020-07-17 18:15 | RADIOLOGY REPORT (SQ) ---
EXAM DESCRIPTION: CT HEAD WITHOUT IMAGES COMPLETED DATE/TIME: 07/17/2020 6:06 pm REASON FOR STUDY: AMS COMPARISON: 2008 TECHNIQUE: Axial images acquired through the brain without intravenous contrast. Images reviewed wi th bone, brain and subdural windows. Additional sagittal and coronal reconstructions were generated. Images stored on PACS. All CT scanners at this facility use dose modulation, iterative reconstruction, and/or weight based d osing when appropriate to reduce radiation dose to as low as reasonably achievable (ALARA). [facility]: Dose Right [facility]: CareDose [facility]: Dose Right [facility]: Teradose 4D [facility]: Smart [employer] RADIATION DOSE: CT Rad equipment meets quality standard of care and radiation dose reduction techniq ues were employed. CTDIvol: 53.2 mGy. DLP: 991 mGy-cm. mGy. LIMITATIONS: None. FINDINGS: VENTRICLES: Prominent ventricles secondary to involutional atrophy. CEREBRUM: Cortical atrophy. No masses. No hemorrhage. No midline shift. No evidence for acute inf arction. Areas of low density in the white matter most likely chronic small vessel ischemic changes. CEREBELLUM: No masses. No hemorrhage. No alteration of density. No evidence for acute infarction. EXTRAAXIAL SPACES: No fluid collections. No masses. ORBITS AND GLOBE: No intra- or extraconal masses. Normal contour of globe without masses. CALVARIUM: No fracture. PARANASAL SINUSES: No fluid or mucosal thickening. SOFT TISSUES: No mass or hematoma. OTHER: No other significant finding. IMPRESSION: MICROVASCULAR ISCHEMIA AND GENERALIZED ATROPHY. NO ACUTE IMAGING FINDINGS IN THE BRAIN EVIDENCE OF ACUTE STROKE: NO. COMMENT: Quality ID # [id number]: Final reports with documentation of one or more dose reduction techniques (e.g., Automated exposure control, adjustment of the mA and/or kV according to patient size, use of iterative reconstruction technique) TECHNICAL DOCUMENTATION: JOB ID: [id number] 2010 [email or web address]- All Rights Reserved Reading location - IP/workstation name: [email or web address]
[2020-07-17] MEDS ORDERED: DILTIAZEM HCL INJ 25 MG/5 ML VIAL IV ONE (18:16)
[2020-07-17] MEDS ORDERED: METHYLPREDNISOLONE INJ 125 MG/2 ML SDV IV ONE (18:17)
[2020-07-17] MEDS ORDERED: FAMOTIDINE INJ/PF 20 MG/2 ML SDV IV ONE (18:17)
[2020-07-17] MEDS ORDERED: DILTIAZEM HCL/D5W 125 MG/125 ML RTUINJ IV PRN (18:17)
--- NOTE | 2020-07-17 18:26 | ER Document Report ---
ED General - General Chief Complaint: Altered Mental Status Stated Complaint: ALTERED MENTAL STATUS Time Seen by Provider: 07/17/20 17:36 Primary Care Provider: BREANNE RAE MD [Primary Care Provider] - Follow up as needed Mode of Arrival: Wheelchair Information source: Relative - Son Notes: 85-year-old male patient presenting to the emergency department for the second time today. Patient was initially sent over from Dr. Rae office in [place] with concerns for A. fib with RVR. Patient apparently has a history of A. fib, it is usually rate controlled with p.o. diltiazem. Patient was seen in Dr. Rae office today for routine lab draw. He noted the patient to have a heart rate in the 150s. At the time patient denied any chest pain or shortness of breath so Dr. Velez had his son bring him to the emergency department. Dr. Rae also reported patient had a weight loss of 30 pounds over the last 30 days. Unfortunately the patient left AGAINST MEDICAL ADVICE during his first visit to the emergency department today. They had started a work-up and had him on a Cardizem drip. According to the patient's son the patient has been altered s krystina arrival home so he was brought back to the emergency department. Patient's son reports patient not able to make decisions, states that the patient did not recognize him. He further reports patient has been found outside in the rain standing in a bathrobe, he has taken the riding lawnmower into the [place] and has gotten it wedged in between trees. He believes the patient may have Alzheimer's or dementia that has not been diagnosed yet. He states these changes have been progressive over the last 4 months. TRAVEL OUTSIDE OF THE [place] IN LAST 30 DAYS: No - Related Data Allergies/Adverse Reactions: No Known Allergies Allergy (Verified 07/29/17 10:12) Past Medical History - General Information source: Relative - Social History Smoking Status: Former Smoker Frequency of alcohol use: Heavy - per Dr. Rae Drug Abuse: None Family History: None, Reviewed & Not Pertinent - Past Medical History Cardiac Medical History: Reports: Hx Atrial Fibrillation - 02/25/17, Hx Congestive Heart Failure Denies: Hx Coronary Artery Disease, Hx Heart Attack, Hx Hypertension Pulmonary Medical History: Denies: Hx Asthma, Hx Bronchitis, Hx COPD, Hx Pneumonia Neurological Medical History: Denies: Hx Cerebrovascular Accident, Hx Seizures Endocrine Medical History: Reports: Hx Diabetes Mellitus Type 2 GI Medical History: Reports: Hx Cirrhosis Musculoskeletal Medical History: Reports Hx Arthritis - RIGHT SHOULDER Past Surgical History: Reports: Hx Orthopedic Surgery - Left AKA, Other - Abdominal surgery for ruptured peptic ulcer disease and multiple sinus surg. Denies: Hx Pacemaker - Immunizations Hx Diphtheria, Pertussis, Tetanus Vaccination: No Review of Systems - Review of Systems -: Yes ROS unobtainable due to patient's medical condition Physical Exam - Vital signs Vitals: Temp Pulse Resp BP Pulse Ox 97.4 F 79 18 112/77 98 07/17/20 17:25 07/17/20 17:25 07/17/20 17:25 07/17/20 17:25 07/17/20 17:25 - Notes Notes: PHYSICAL EXAMINATION: GENERAL: Appears to be stated age, pleasantly confused, no acute distress noted. HEAD: Atraumatic, normocephalic. EYES: Pupils equal round and reactive to light, extraocular movements intact, sclera anicteric, conjunctiva are normal. ENT: Nares patent, oropharynx clear without exudates. Moist mucous membranes. NECK: Normal range of motion, supple without lymphadenopathy LUNGS: Breath sounds clear to auscultation bilaterally and equal. No wheezes rales or rhonchi. HEART: Tachycardic ABDOMEN: Soft, nontender, nondistended abdomen. No guarding, no rebound. No masses appreciated. Musculoskeletal: Normal range of motion, no pitting or edema. No cyanosis. NEUROLOGICAL: Cranial nerves grossly intact. Normal speech. Normal sensory, motor exams PSYCH: Patient oriented to person and place. SKIN: Excoriated erythematous rash noted to patient's bilateral upper arms and chest wall. Course - Re-evaluation Re-evalutation: 07/17/20 18:25 Patient has returned to the emergency department. A head CT has been obtained. It shows no acute findings today. Repeat EKG is in process, the one from earlier today showed A. fib with RVR. He was on a Cardizem drip, he left AMA. Patient is intermittently confused, his son is at the bedside agrees to stay with him. Patient agrees to stay at the hospital this time. We will reinitiate his orders that were started earlier and will attempt to get the patient admitted as soon as we have some of his laboratory investigations returned. EKG from this visit shows atrial fibrillation, rate currently 135. Unchanged from previous EKG on file. Upon review of patient's pharmacy records it appears that patient may not be getting all of his medications as he is supposed to be on Cardizem however it has been quite sometime since this was filled. It was filled in February for a 90- day supply. He was also supposed to be on Eliquis twice daily, the last time this appears to have been filled was 03/15/20 for a 30-day supply. Apparently the patient lives with his who has dementia. His son and daughter do live nearby and help with meals etc. Plan: Repeat EKG and labs. Give Cardizem bolus and restart Cardizem drip. Give IV Pepcid and IV Solu-Medrol for patient's excoriated rash per the recommendation of Dr. Martinez. Plan to admit patient as soon as we have patient's work-up complete. 07/17/20 20:45 The hospitalist has been to the bedside. We are waiting to hear back from him as far as admission status. He has told the nursing staff that he is going to consult cardiology for advice regarding the patient's atrial fibrillation and diltiazem orders. - Vital Signs Vital signs: Temp Pulse Resp BP Pulse Ox 97.4 F 79 22 H 106/86 H 98 07/17/20 17:25 07/17/20 17:25 07/17/20 20:20 07/17/20 20:21 07/17/20 20:21 - Laboratory Result Diagrams: 07/17/20 18:41 07/17/20 18:41 Laboratory results interpreted by me: 07/17/20 07/17/20 07/17/20 18:41 18:41 18:41 RBC 3.00 L Hgb 11.8 L Hct 34.0 L MCV 113 H MCH 39.2 H RDW 23.2 H Lymph % (Auto) 11.2 L [place] % (Auto) 13.5 H APTT 37.6 H Potassium 3.4 L BUN 22 H Creatinine 0.49 L Glucose 112 H Total Bilirubin 1.9 H Direct Bilirubin 1.3 H ALT 58 H Alkaline Phosphatase 167 H Urine Protein Urine Ketones Urine Bilirubin Urine Urobilinogen Urine Ascorbic Acid 07/17/20 18:41 RBC Hgb Hct MCV MCH RDW Lymph % (Auto) [place] % (Auto) APTT Potassium BUN Creatinine Glucose Total Bilirubin Direct Bilirubin ALT Alkaline Phosphatase Urine Protein 100 H Urine Ketones 20 H Urine Bilirubin SMALL H Urine Urobilinogen 4.0 H Urine Ascorbic Acid 20 H Discharge - Discharge Clinical Impression: Atrial fibrillation with RVR, Excoriation, Intermittent confusion Condition: Fair Disposition: ADMITTED INPATIENT Admitting Provider: hospitalist Dr. Blum Unit Admitted: IMCU Referrals: BREANNE RAE MD [Primary Care Provider] - Follow up as needed
[2020-07-17 19:19] LABS: ABSOLUTE EOSINOPHILS # (AUTO) 0.1 10^3/uL (0.0-0.6); ABSOLUTE LYMPHOCYTES (AUTO) 0.5 10^3/uL (0.5-4.7); ABSOLUTE MONOCYTES (AUTO) 0.6 10^3/uL (0.1-1.4); ABSOLUTE NEUT (AUTO) 3.4 10^3/uL (1.7-8.2); BASOPHILS % (AUTO) 0.4 % (0-2); EOSINOPHILS % (AUTO) 2.5 % (0-6); HEMOGLOBIN 11.8 g/dL (13.5-17.0); LYMPHOCYTES % (AUTO) 11.2 % (13-45); MEAN CORPUSCULAR HEMOGLOBIN 39.2 pg (27.0-33.4); MEAN CORPUSCULAR HGB CONC 34.6 g/dL (32.0-36.0); MEAN CORPUSCULAR VOLUME 113 fl (80-97); MONOCYTES % (AUTO) 13.5 % (3-13); PLATELET COUNT 187 10^3/uL (150-450); RED CELL DISTRIBUTION WIDTH 23.2 % (11.5-14.0); SEGMENTED NEUTROPHILS % (AUTO) 72.4 % (42-78); TOTAL CELLS COUNTED % (AUTO) 100 %; WHITE BLOOD COUNT 4.7 10^3/uL (4.0-10.5)
[2020-07-17 19:25] LABS: INTERNATIONAL RATION (INR) 1.01; PROTHROMBIN TIME 13.5 SEC (11.4-15.4)
[2020-07-17 19:26] LABS: PARTIAL THROMBOPLASTIN TIME 37.6 SEC (23.5-35.8)
[2020-07-17 19:30] LABS: APPEARANCE,URINE SLIGHTLY-CLOUDY; BILIRUBIN,URINE SMALL (NEGATIVE); COLOR,URINE AMBER; GLUCOSE, URINE NEGATIVE (NEGATIVE); KETONES,URINE 20 mg/dL (NEGATIVE); LEUKOCYTE ESTERASE,URINE NEGATIVE (NEGATIVE); NITRITE,URINE NEGATIVE (NEGATIVE); PROTEIN,URINE 100 mg/dL (NEGATIVE); URINE SPECIFIC GRAVITY 1.031
[2020-07-17 19:33] LABS: ANISOCYTOSIS 3+; PLATELET COMMENT ADEQUATE
[2020-07-17 19:36] LABS: ALBUMIN 3.8 g/dL (3.5-5.0); ALKALINE PHOSPHATASE 167 U/L (38-126); ANION GAP 13 (5-19); ASPARTATE AMINO TRANSFERASE 41 U/L (17-59); BILIRUBIN,DIRECT 1.3 mg/dL (0.0-0.4); BILIRUBIN,TOTAL 1.9 mg/dL (0.2-1.3); BLOOD UREA NITROGEN 22 mg/dL (7-20); CALCIUM 9.7 mg/dL (8.4-10.2); CARBON DIOXIDE 27 mmol/L (22-30); CHLORIDE 99 mmol/L (98-107); GLUCOSE 112 mg/dL (75-110); POTASSIUM 3.4 mmol/L (3.6-5.0); TOTAL PROTEIN 7.2 g/dL (6.3-8.2)
[2020-07-17] MEDS ORDERED: LORAZEPAM INJ 2 MG/1 ML VIAL IV ONE (19:53)
[2020-07-17] MEDS ORDERED: NORMAL SALINE 1000 ML 500 ML IV ONE (20:06)
[2020-07-17] MEDS ORDERED: ACETAMINOPHEN 325 MG TABLET PO PRN (20:41)
[2020-07-17] MEDS ORDERED: METOPROLOL SUCCINATE 50 MG TAB.SR.24H PO ONE (20:59)
--- NOTE | 2020-07-17 21:10 | PDOC H&P ---
History of Present Illness Admission Date/PCP: BREANNE ALY MD 08/17/2020 Patient complains of: Transferred from PCP for AFIB with RVR History of Present Illness: JUDIE MOORE JR is a 85 year old male with a medical history significant for A. fib who was transferred from his PCP where he presented for a routine care. During evaluation his heart rate was found to be in the 150s and EKG showed A. fib with RVR and patient was subsequently transferred to ER for further care. Patient reports that for the past 4 months he has been having progressive de ojeda in his functional status. He states that he has been feeling more short of breath and occasionally he feels lightheaded when he gets up from sitting position quickly. He admits that he has not been compliant with his medication and has not been taking Cardizem and Eliquis as prescribed but was always taking her above medications. Currently he denies any palpitations, chest pain, shortness of breath, orthopnea, PND or leg swelling. He also denies any fever, chills, cough, dizziness. Past Medical History Cardiac Medical History: Reports: Atrial Fibrillation - 02/25/17, Congestive Heart Failure Denies: Coronary Artery Disease, Myocardial Infarction, Hypertension Pulmonary Medical History: Denies: Asthma, Bronchitis, Chronic Obstructive Pulmonary Disease (COPD), Pneumonia Neurological Medical History: Denies: Seizures Endocrine Medical History: Reports: Diabetes Mellitus Type 2 GI Medical History: Reports: Cirrhosis Musculoskeltal Medical History: Reports: Arthritis - RIGHT SHOULDER Hematology: Denies: Anemia Past Surgical History Past Surgical History: Reports: Orthopedic Surgery - Left AKA, Other - Abdominal surgery for ruptured peptic ulcer disease and multiple sinus surg Denies: Pacemaker Social History Information Source: Patient Lives with: Family Smoking Status: Former Smoker Frequency of Alcohol Use: Occasional - Patient drinks on a regular basis. Hx Recreational Drug Use: No Drugs: None Hx Prescription Drug Abuse: No - Advance Directive Resuscitation Status: Full Code Family History Family History: None, Reviewed & Not Pertinent Parental Family History Reviewed: Yes Children Family History Reviewed: Yes Sibling(s) Family History Reviewed.: Yes Medication/Allergy Home Medications: No Home Medications 07/18/20 Allergies/Adverse Reactions: No Known Allergies Allergy (Verified 07/29/17 10:12) Review of Systems Constitutional: ABSENT: chills, fever(s), headache(s), weight gain, weight loss Eyes: ABSENT: visual disturbances Ears: ABSENT: hearing changes Nose, Mouth, and Throat: ABSENT: headache(s), mouth pain, sore throat, vertigo, other Cardiovascular: PRESENT: dyspnea on exertion. ABSENT: chest pain, edema, orthropnea, palpitations Respiratory: ABSENT: cough, hemoptysis Gastrointestinal: ABSENT: abdominal pain, constipation, diarrhea, hematemesis, hematochezia, nausea, vomiting Genitourinary: ABSENT: dysuria, hematuria Musculoskeletal: ABSENT: joint swelling Integumentary: PRESENT: erythema, pruritus, rash. ABSENT: wounds Neurological: ABSENT: abnormal speech, confusion, dizziness, focal weakness, syncope Endocrine: ABSENT: cold intolerance, heat intolerance, polydipsia, polyuria Physical Exam Vital Signs: Temp Pulse Resp BP Pulse Ox 97.4 F 79 22 H 106/86 H 98 07/17/20 17:25 07/17/20 17:25 07/17/20 20:20 07/17/20 20:21 07/17/20 20:21 Intake & Output 07/16/20 07/17/20 07/18/20 06:59 06:59 06:59 Intake Total 513 Balance 513 Additional comments: GENERAL APPEARANCE: in no acute distress. Alert and cooperative. HEENT: Normocephalic and atraumatic. No scleral icterus. PERRLA, EOMs are full, moist oral mucosa NECK: Supple. Trachea is midline. No evidence of thyroid enlargement. No lymphadenopathy or tenderness. No carotid bruit. No JVD CHEST: Symmetric. Nontender to palpation. LUNGS: Breath sounds are equal and clear bilaterally. No wheezes, rhonchi, or rales. HEART: Tachycardic, irregularly irregular rhythm with normal S1 and S2. No murmurs, gallops, or rubs. ABDOMEN: Soft, flat, and benign. No mass, tenderness, guarding, or rebound. No organomegaly or hernia. Bowel sounds are present. No CVA tenderness or flank mass.. EXTREMITIES: No cyanosis, clubbing, or edema. MUSCULOSKELETAL: No deformity, atrophy or swelling noted SKIN: Warm, dry, and well perfused. No lesions or rashes are noted. NEUROLOGIC: No focal sensory or motor deficits are noted. Gait is normal. Cranial nerves II through XII are intact. Deep tendon reflexes are intact. Results Laboratory Results: 07/17/20 18:41 10/21/20 18:41 07/17/20 07/17/20 07/17/20 18:41 18:41 18:41 WBC 4.7 RBC 3.00 L Hgb 11.8 L Hct 34.0 L MCV 113 H MCH 39.2 H MCHC 34.6 RDW 23.2 H Plt Count 187 Seg Neutrophils % 72.4 Sodium 139.0 Potassium 3.4 L Chloride 99 Carbon Dioxide 27 Anion Gap 13 BUN 22 H Creatinine 0.49 L Est GFR ( Amer) > 60 Glucose 112 H Calcium 9.7 Total Bilirubin 1.9 H AST 41 Alkaline Phosphatase 167 H Total Protein 7.2 Albumin 3.8 Urine Color CHELE Urine Appearance SLIGHTLY-CLOUDY Urine pH 5.0 Ur Specific [place] 1.031 Urine Protein 100 H Urine Glucose (UA) NEGATIVE Urine Ketones 20 H Urine Blood NEGATIVE Urine Nitrite NEGATIVE Ur Leukocyte Esterase NEGATIVE Urine WBC (Auto) 6 Urine RBC (Auto) 2 Impressions: Head CT 07/17/20 17:42 IMPRESSION: MICROVASCULAR ISCHEMIA AND GENERALIZED ATROPHY. NO ACUTE IMAGING FINDINGS IN THE BRAIN EVIDENCE OF ACUTE STROKE: NO. Assessment and Plan - Diagnosis (1) Atrial fibrillation with rapid ventricular response Is this a current diagnosis for this admission?: Yes Plan: On arrival the patient's heart rate was in the 150s With started on Cardizem drip that was discontinued due to soft blood pressure After consultation with cardiology patient was placed on metoprolol 50 mg p.o. every 6 hourly Restarted on Eliquis 2.5 mg twice daily Will continue monitoring in telemetry unit (2) Alcohol dependence Is this a current diagnosis for this admission?: Yes Plan: Patient reports that he is currently working on cutting down alcohol intake Placed him on symptom triggered CIWA protocol Continue thiamine and folic acid (3) Pruritic rash Is this a current diagnosis for this admission?: Yes Plan: Patient has exfoliative pruritic skin rash on anterior chest and upper ex tremities for more than 4 months Has been using benzocaine [id number] Held antihistamine due to prolonged QTC Triamcinolone 0.1% cream for now May benefit from dermatology evaluation - Time Time Spent with patient: 35 or more minutes Total Critical Time (Minutes): 40 Medications reviewed and adjusted accordingly: Yes Anticipated Discharge Disposition: Home, Self Care Anticipated Discharge Timeframe: within 72 hours - Inpatient Certification Based on my medical assessment, after consideration of the patient's comorbidities, presenting symptoms, or acuity I expect that the services needed warrant INPATIENT care.: Yes I certify that my determination is in accordance with my understanding of Medic are's requirements for reasonable and necessary INPATIENT services [42 CFR 412.3e].: Yes Medical Necessity: Significant Comorbidiites Make Outpatient Treatment Too Risky, Need Close Monitoring Due to Risk of Patient Decompensation, Need For Continuous Telemetry Monitoring Post Hospital Care: D/C or Transfer Summary
[2020-07-17 21:45] LABS: TROPONIN I 0.029 ng/mL
[2020-07-17] MEDS ORDERED: METOPROLOL TARTRATE 50 MG TABLET PO SCH (22:00)
[2020-07-17] MEDS ORDERED: TRIAMCINOLONE ACETONIDE 0.1% CREAM 15 GM TOP SCH (22:00)
[2020-07-17] MEDS ORDERED: APIXABAN 2.5 MG TABLET PO SCH (22:00)
[2020-07-17] MEDS ORDERED: TRIAMCINOLONE ACETONIDE 0.1% CREAM 15 GM ONE (23:02)
[2020-07-17] MEDS ORDERED: OXYCODONE-ACETAMINOPHEN 5-325 MG TABLET PO ONE (23:59)
[2020-07-18] MEDS ORDERED: METOPROLOL TARTRATE 50 MG TABLET PO SCH (03:00)
[2020-07-18 05:42] LABS: ABSOLUTE LYMPHOCYTES (AUTO) 0.2 10^3/uL (0.5-4.7); ABSOLUTE MONOCYTES (AUTO) 0.1 10^3/uL (0.1-1.4); ABSOLUTE NEUT (AUTO) 2.3 10^3/uL (1.7-8.2); BASOPHILS % (AUTO) 0.1 % (0-2); HEMATOCRIT 33.3 % (37.9-51.0); HEMOGLOBIN 11.7 g/dL (13.5-17.0); LYMPHOCYTES % (AUTO) 8.5 % (13-45); MEAN CORPUSCULAR HEMOGLOBIN 39.8 pg (27.0-33.4); MEAN CORPUSCULAR HGB CONC 35.2 g/dL (32.0-36.0); MEAN CORPUSCULAR VOLUME 113 fl (80-97); MONOCYTES % (AUTO) 2.6 % (3-13); PLATELET COUNT 175 10^3/uL (150-450); RED BLOOD COUNT 2.95 10^6/uL (4.35-5.55); RED CELL DISTRIBUTION WIDTH 23.4 % (11.5-14.0); SEGMENTED NEUTROPHILS % (AUTO) 88.8 % (42-78); TOTAL CELLS COUNTED % (AUTO) 100 %
[2020-07-18] MEDS ORDERED: FAMOTIDINE 20 MG TABLET PO SCH (06:00)
[2020-07-18 06:01] LABS: ANION GAP 10 (5-19); BLOOD UREA NITROGEN 26 mg/dL (7-20); CALCIUM 9.5 mg/dL (8.4-10.2); CARBON DIOXIDE 29 mmol/L (22-30); CHLORIDE 100 mmol/L (98-107); CHOLESTEROL 125.49 mg/dL (0-200); GLUCOSE 174 mg/dL (75-110); POTASSIUM 3.5 mmol/L (3.6-5.0); TRIGLYCERIDES 77 mg/dL (<150)
[2020-07-18 06:06] LABS: ANISOCYTOSIS 3+; PLATELET COMMENT ADEQUATE; POIKILOCYTOSIS 1+; POLYCHROMASIA SLIGHT; TEAR DROP CELLS SLIGHT
[2020-07-18 06:07] LABS: WHITE BLOOD COUNT 2.6 10^3/uL (4.0-10.5)
[2020-07-18 06:18] LABS: DIRECT LDL 50 mg/dL (<100)
--- NOTE | 2020-07-18 08:11 | RADIOLOGY REPORT (SQ) ---
EXAM DESCRIPTION: CHEST SINGLE VIEW IMAGES COMPLETED DATE/TIME: 07/17/2020 9:15 pm REASON FOR STUDY: heart failure COMPARISON: 07/17/2020. EXAM PARAMETERS: NUMBER OF VIEWS: One view. TECHNIQUE: Single frontal radiographic view of the chest acquired. RADIATION DOSE: NA LIMITATIONS: None. FINDINGS: LUNGS AND PLEURA: No opacities, masses or pneumothorax. No pleural effusion. MEDIASTINUM AND HILAR STRUCTURES: No masses. Contour normal. HEART AND VASCULAR STRUCTURES: Stable mild cardiomegaly. BONES: No acute findings. HARDWARE: None in the chest. OTHER: No other significant finding. IMPRESSION: STABLE CARDIOMEGALY. NO ACUTE RADIOGRAPHIC FINDING IN THE CHEST. TECHNICAL DOCUMENTATION: JOB ID: [id number] 2010 [employer]- All Rights Reserved Reading location - IP/workstation name: [email or web address]
[2020-07-18 08:48] VITALS: BP 88/55
[2020-07-18] MEDS ORDERED: APIXABAN 5 MG TABLET PO SCH (10:00)
[2020-07-18] MEDS ORDERED: ASPIRIN 81 MG TABLET, CHEWABLE PO SCH (10:00)
[2020-07-18] MEDS ORDERED: FUROSEMIDE 40 MG TABLET PO SCH (10:00)
--- NOTE | 2020-07-18 12:41 | Left Against Medical Advice ---
Against Medical Advice Admission Date/Time: 07/17/20 21:10 Primary Care Provider: BREANNE ALY MD Date of Patient Emigration: 07/18/20 - Diagnosis: (1) Atrial fibrillation with rapid ventricular response Is this a current diagnosis for this admission?: Yes (2) Cardiomyopathy Is this a current diagnosis for this admission?: Yes (3) Pruritic rash Is this a current diagnosis for this admission?: Yes (4) Chronic systolic heart failure Is this a current diagnosis for this admission?: Yes - Summary: Summary: Please see Admission and Progress Notes as well. JUDIE MOORE JR is a 85 M, who LEFT AGAINST MEDICAL ADVICE. HPI as per admitting provider History of Present Illness: JUDIE MOORE JR is a 85 year old male with a medical history significant for A. fib who was transferred from his PCP where he presented for a routine care. During evaluation his heart rate was found to be in the 150s and EKG showed A. fib with RVR and patient was subsequently transferred to ER for further care. Patient reports that for the past 4 months he has been having progressive decline in his functional status. He states that he has been feeling more short of breath and occasionally he feels lightheaded when he gets up from sitting position quickly. He admits that he has not been compliant with his medication and has not been taking Cardizem and Eliquis as prescribed but was always taking her above medications. Currently he denies any palpitations, chest pain, shortness of breath, orthopnea, PND or leg swelling. He also denies any fever, chills, cough, dizziness. PE: NAD Resp: unlabored, no retractions CV: irregular heart rhythm, mild tachycardia Ext: bilateral LE pitting edema Neuro: able to carry conversation, alert and oriented and demonstrates understanding of situation and consequences Course Patient started on diltiazem for AFib rvr and later switched to lopressor due to soft BPs. This morning, patient insisted on leaving AMA. I explained to him that based off his Echo back in February (at which time he also left AMA) he has cardiomyopathy and HFrEF and that is likely contributing to his A. fib with RVR. His echo at that time did show an EF of 20 to 25%. I explained to him the potential risk of if this is not optimized before discharge. He expressed understanding and still opted to leave AMA. He states that his age is tired of seeing doctors. Patient signed the AMA paperwork and left. I did speak with his son over the phone to explain patient's current condition with him and recommended he follow-up with inside b2[employer] sales and I sent in prescriptions to the pharmacy of their choice for Lasix, Toprol-XL and triamcinolone cream for his dermatitis. He understood and also discussed that his mom has dementia that he will be having further conversations with his father and trying to get into see cardiology at [facility]. The Patient was admitted on 07/17/20 21:10.
--- NOTE | 2020-07-18 18:02 | EKG REPORT ---
SEVERITY:- ABNORMAL ECG - ATRIAL FIBRILLATION, V-RATE 81-190 BORDERLINE IVCD WITH LAD BORDERLINE T WAVE ABNORMALITIES PROLONGED QT INTERVAL : Confirmed by: Alden Ledezma MD 18-Jul-2020 18:01:33
== END 2020-07-18 10:16 | disposition left against medical advice (07) | DRG 309 ==
LOC: ER 17:05 → EH 21:10 → 3W 22:44
PROVIDERS: ADMIT Student in an Organized Health Care Education/Training Program; ATTEND Internal Medicine
DX: I48.91 Unspecified atrial fibrillation (principal); I50.22 Chronic systolic (congestive) heart failure; I11.0 Hypertensive heart disease with heart failure; I42.9 Cardiomyopathy, unspecified; M13.811 Other specified arthritis, right shoulder; T46.1X6A Underdosing of calcium-channel blockers, initial encounter; T45.526A Underdosing of antithrombotic drugs, initial encounter; E11.9 Type 2 diabetes mellitus without complications; K74.60 Unspecified cirrhosis of liver; F10.20 Alcohol dependence, uncomplicated; L30.9 Dermatitis, unspecified; Z89.612 Acquired absence of left leg above knee; Z87.891 Personal history of nicotine dependence
CPT/HCPCS: 36415; 70450; 71045; 80048; 80053; 80061; 80307; 81001; 83735; 83880; 84443; 84484; 85025; 85610; 85730; 87070; 93005; 93010; 96365; 96366; 96375; 99285; J2930; J3490; J7030; J7040; S0028

== ENCOUNTER 2020-08-05 09:51 | Inpatient (IN) | payer MEDICARE, BC ==
--- NOTE | 2020-08-05 11:05 | ER Document Report ---
ED Medical Screen (RME) - General Chief Complaint: Difficulty Swallowing Stated Complaint: FLANK PAIN AMS SKIN ISSUES Time Seen by Provider: 08/05/20 10:54 Primary Care Provider: BREANNE ALY MD [Primary Care Provider] - Follow up as needed Mode of Arrival: Wheelchair Information source: Patient, Relative - Son Notes: 85-year-old male patient with dementia presenting to the emergency department stating "I cannot swallow any solids". Patient tells me this started "sometime this year". Patient's son pulled me out of the room stating that patient has not been eating or drinking, has not been taking his medications. He was recently admitted here for A. fib with RVR, initially left AMA and then returned. Patient's family is trying to work on getting guardianship of the patient as the patient is not safe to be home alone. I have greeted and performed a rapid initial assessment of this patient. A comprehensive ED assessment and evaluation of the patient, analysis of test results and completion of the medical decision making process will be conducted by additional ED providers. I have specifically instructed the patient or family members with the patient to immediately return to any nursing staff should anything change in the patient's condition or with their chief complaint. TRAVEL OUTSIDE OF THE [place] IN LAST 30 DAYS: No - Related Data Allergies/Adverse Reactions: No Known Allergies Allergy (Verified 07/29/17 10:12) Home Medications: lasix Past Medical History - Social History Chew tobacco use (# tins/day): No Frequency of alcohol use: None Drug Abuse: None - Past Medical History Cardiac Medical History: Reports: Hx Atrial Fibrillation - 02/25/17, Hx Congestive Heart Failure Denies: Hx Coronary Artery Disease, Hx Heart Attack, Hx Hypertension Pulmonary Medical History: Denies: Hx Asthma, Hx Bronchitis, Hx COPD, Hx Pneumonia Neurological Medical History: Denies: Hx Cerebrovascular Accident, Hx Seizures Endocrine Medical History: Reports: Hx Diabetes Mellitus Type 2 GI Medical History: Reports: Hx Cirrhosis Musculoskeltal Medical History: Reports Hx Arthritis - RIGHT SHOULDER Psychiatric Medical History: Denies: Hx Depression Past Surgical History: Reports: Hx Orthopedic Surgery - Left AKA, Other - Abdominal surgery for ruptured peptic ulcer disease and multiple sinus surg. Denies: Hx Pacemaker - Immunizations Hx Diphtheria, Pertussis, Tetanus Vaccination: No Physical Exam - Vital signs Vitals: Temp Pulse Resp BP Pulse Ox 97.3 F 94 18 110/85 94 08/05/20 10:15 08/05/20 10:15 08/05/20 10:15 08/05/20 10:15 08/05/20 10:15 Course - Vital Signs Vital signs: Temp Pulse Resp BP Pulse Ox 97.3 F 94 18 110/85 94 08/05/20 10:15 08/05/20 10:15 08/05/20 10:15 08/05/20 10:15 08/05/20 10:15 Doctor's Discharge - Discharge Referrals: BREANNE ALY MD [Primary Care Provider] - Follow up as needed
[2020-08-05 11:47] LABS: HEMATOCRIT 39.8 % (37.9-51.0); HEMOGLOBIN 13.6 g/dL (13.5-17.0); MEAN CORPUSCULAR HEMOGLOBIN 41.7 pg (27.0-33.4); MEAN CORPUSCULAR HGB CONC 34.1 g/dL (32.0-36.0); PLATELET COUNT 123 10^3/uL (150-450); RED BLOOD COUNT 3.26 10^6/uL (4.35-5.55); RED CELL DISTRIBUTION WIDTH 18.2 % (11.5-14.0); WHITE BLOOD COUNT 6.8 10^3/uL (4.0-10.5)
[2020-08-05 11:48] LABS: INTERNATIONAL RATION (INR) 1.39; PROTHROMBIN TIME 17.2 SEC (11.4-15.4)
[2020-08-05 11:49] LABS: PARTIAL THROMBOPLASTIN TIME 38.9 SEC (23.5-35.8)
[2020-08-05] MEDS ORDERED: METOPROLOL TARTRATE PF/INJ 5 MG/5 ML SDV IV ONE ×2 (11:58→12:21)
[2020-08-05 12:05] LABS: ALBUMIN 3.1 g/dL (3.5-5.0); ALKALINE PHOSPHATASE 162 U/L (38-126); ANION GAP 14 (5-19); ASPARTATE AMINO TRANSFERASE 71 U/L (17-59); BILIRUBIN,DIRECT 1.4 mg/dL (0.0-0.4); BILIRUBIN,TOTAL 2.8 mg/dL (0.2-1.3); BLOOD UREA NITROGEN 26 mg/dL (7-20); CALCIUM 9.1 mg/dL (8.4-10.2); CARBON DIOXIDE 25 mmol/L (22-30); CHLORIDE 94 mmol/L (98-107); GLUCOSE 105 mg/dL (75-110); POTASSIUM 3.6 mmol/L (3.6-5.0); TOTAL PROTEIN 6.2 g/dL (6.3-8.2)
[2020-08-05 12:16] LABS: ABSOLUTE LYMPHOCYTES# (MANUAL) 0.3 10^3/uL (0.5-4.7); ABSOLUTE MONOCYTES # (MANUAL) 0.4 10^3/uL (0.1-1.4); BASOPHILS % (MANUAL) 0 % (0-2); EOSINOPHILS % (MANUAL) 1 % (0-6); LYMPHOCYTES % (MANUAL) 4 % (13-45); MONOCYTES % (MANUAL) 6 % (3-13); SEGMENTED NEUTROPHILS % (MAN) 89 % (42-78); TOTAL CELLS COUNTED 100
[2020-08-05 12:17] LABS: OVALOCYTES SLIGHT; PLATELET COMMENT DECREASED; POIKILOCYTOSIS SLIGHT
[2020-08-05 12:18] LABS: MEAN CORPUSCULAR VOLUME 122 fl (80-97)
[2020-08-05] MEDS ORDERED: NORMAL SALINE 200 ML IV ONE (12:51)
[2020-08-05] MEDS ORDERED: FUROSEMIDE INJ/PF 20 MG/2 ML SDV IV ONE (13:20)
--- NOTE | 2020-08-05 13:21 | RADIOLOGY REPORT (SQ) ---
EXAM DESCRIPTION: CHEST SINGLE VIEW IMAGES COMPLETED DATE/TIME: 08/05/2020 12:11 pm REASON FOR STUDY: afib/sobr COMPARISON: 10/16/2019 EXAM PARAMETERS: NUMBER OF VIEWS: One view. TECHNIQUE: Single frontal radiographic view of the chest acquired. RADIATION DOSE: NA LIMITATIONS: None. FINDINGS: LUNGS AND PLEURA: New small left pleural effusion. No focal consolidation or pneumothorax . MEDIASTINUM AND HILAR STRUCTURES: No masses. Contour normal. HEART AND VASCULAR STRUCTURES: Moderate cardiomegaly. No pulmonary vascular congestion. BONES: No acute findings. HARDWARE: None in the chest. OTHER: No other significant finding. IMPRESSION: New small left effusion. Moderate cardiomegaly. TECHNICAL DOCUMENTATION: JOB ID: [id number] 2010 [employer]- All Rights Reserved Reading location - IP/workstation name: [id number]
[2020-08-05] MEDS ORDERED: AMIODARONE HCL 150 MG in DEXTROSE 5%-WATER 100 ML IV ONE ×2 (14:17→17:19)
[2020-08-05] MEDS ORDERED: DEXTROSE 5%-WATER 500 ML with AMIODARONE HCL 900 MG IV PRN ×2 (14:27)
[2020-08-05 14:39] LABS: APPEARANCE,URINE SLIGHTLY-CLOUDY; BILIRUBIN,URINE NEGATIVE (NEGATIVE); COLOR,URINE AMBER; GLUCOSE, URINE NEGATIVE (NEGATIVE); KETONES,URINE TRACE mg/dL (NEGATIVE); LEUKOCYTE ESTERASE,URINE NEGATIVE (NEGATIVE); NITRITE,URINE NEGATIVE (NEGATIVE); PROTEIN,URINE 30 mg/dL (NEGATIVE); URINE SPECIFIC GRAVITY 1.029
[2020-08-05] MEDS ORDERED: DIGOXIN INJ 0.5 MG/2 ML AMPULE IV ONE (15:24)
[2020-08-05] MEDS ORDERED: AMIODARONE HCL INJ 150 MG/3 ML VIAL IV ONE (15:27)
--- NOTE | 2020-08-05 16:05 | ER Document Report ---
Entered by JUAN WREN SCRIBE 08/05/20 1159 Acting as scribe for:KIARA GRIFFITHS MD ED General - General Chief Complaint: Difficulty Swallowing Stated Complaint: FLANK PAIN AMS SKIN ISSUES Time Seen by Provider: 08/05/20 10:54 Primary Care Provider: BREANNE RAE MD [Primary Care Provider] - Follow up as needed Mode of Arrival: Wheelchair Information source: Patient, Relative - Son Notes: This 85 year old male patient with a history of early dementia, HTN, CHF, and A fib presents to the ED today with complaints of difficulty swallowing. Son at bedside reports that the patient has had decreased PO intake for over x2 weeks a nd that he has been noncompliant with his medications except for Lasix. Son states that the patient was seen here x2 times on 07/17 for A fib with RVR; the first time he was sent from his PCP's office, Dr. Rae in [place], and was placed on a Cardizem gtt in the ED, but he left AMA. Patient then returned the same day and was actually admitted, but decided to leave AMA again on 07/18. Patient does have "open sores" and a chronic rash to his extremities. Patient also complains of "breast bone" pain. Denies any abdominal pain. TRAVEL OUTSIDE OF THE [place] IN LAST 30 DAYS: No - Related Data Allergies/Adverse Reactions: No Known Allergies Allergy (Verified 07/29/17 10:12) Home Medications: lasix Past Medical History - General Information source: Patient, Relative - Son, [facility] Records - Social History Smoking Status: Former Smoker Chew tobacco use (# tins/day): No Smoking Education Provided: No Frequency of alcohol use: None Drug Abuse: None Family History: None, Reviewed & Not Pertinent - Past Medical History Cardiac Medical History: Reports: Hx Atrial Fibrillation - 02/25/17, Hx Congestive Heart Failure Endocrine Medical History: Reports: Hx Diabetes Mellitus Type 2 GI Medical History: Reports: Hx Cirrhosis Musculoskeletal Medical History: Reports Hx Arthritis - RIGHT SHOULDER Past Surgical History: Reports: Hx Abdominal Surgery - Abdominal surgery for ruptured peptic ulcer disease, Hx Orthopedic Surgery - Left AKA, Other - Multiple sinus surgeries - Immunizations Hx Diphtheria, Pertussis, Tetanus Vaccination: No Review of Systems - Review of Systems Constitutional: No symptoms reported EENT: See HPI, Difficulty swallowing Cardiovascular: See HPI, Chest pain - "breast bone" Respiratory: No symptoms reported Gastrointestinal: See HPI. denies: Abdominal pain Genitourinary: No symptoms reported Male Genitourinary: No symptoms reported Musculoskeletal: No symptoms reported Skin: No symptoms reported Hematologic/Lymphatic: No symptoms reported Neurological/Psychological: No symptoms reported -: Yes All other systems reviewed and negative Physical Exam - Vital signs Vitals: Temp Pulse Resp BP Pulse Ox 97.3 F 94 18 110/85 94 08/05/20 10:15 08/05/20 10:15 08/05/20 10:15 08/05/20 10:15 08/05/20 10:15 - General General appearance: Other - Patient appears moderately ill and in distress In distress: Mild - HEENT Head: Normocephalic, Atraumatic Eyes: Normal Pupils: PERRL - Respiratory Respiratory status: No respiratory distress Chest status: Nontender Breath sounds: Decreased air movement - Diminished breath sounds in the bases Chest palpation: Normal - Cardiovascular Rhythm: Irregularly irregular, Tachycardia Heart sounds: Normal auscultation Murmur: No Friction rub: No Gallop: None auscultated - Abdominal Inspection: Normal Distension: No distension Bowel sounds: Normal Tenderness: Nontender - Abdomen soft Organomegaly: No organomegaly - Back Back: Normal, Nontender - Extremities General upper extremity: Normal inspection General lower extremity: Edema - +1 edema to bilateral lower extremities - Neurological Cognition: Other - Demented at baseline per patient's son - Psychological Associated symptoms: Normal affect, Normal mood - Skin Skin Temperature: Warm Skin Moisture: Dry Skin Color: Normal Skin irregularity: Rash - Excoriated pruritic rash to upper and lower extremities. Skin is reddened and scaly Course - Re-evaluation Re-evalutation: 08/05/20 16:42 Patient refusing to lie in bed prefers to be is sitting in a recliner. Patient has pulled his IV out more than once while in the department. Patient currently has pulled out his IV line for amiodarone. Discussed at length with patient's son and the mental health counselor regarding IVC commitment in order to manage patient who has a life-threatening illness of atrial fib with RVR and refuses to take to take medication at home due to problems with swallowing and thus far has been uncooperative with maintaining IV access to current to allow us to provide him antiarrhythmic therapy. This case was discussed at length with and the mental health counselor Jameson and patient does meet the criteria for emergent IVC commitment for management of his medical needs for lifesaving purposes. Discussed with son all the development and concern for intervention with involuntary commitment forms and the necessity except - Vital Signs Vital signs: Temp Pulse Resp BP Pulse Ox 97.3 F 94 27 H 99/77 L 94 08/05/20 10:15 08/05/20 10:15 08/05/20 13:01 08/05/20 13:30 08/05/20 11:03 08/05/20 16:45 Vital signs show atrial fibrillation with a ventricular response at this time of 130s. To the 140s. - Laboratory Result Diagrams: 08/05/20 11:08/05/20 11:09 Laboratory results interpreted by me: 08/05/20 08/05/20 08/05/20 11:09 11:09 11:09 RBC 3.26 L MCV 122 H D MCH 41.7 H RDW 18.2 H Plt Count 123 L Seg Neuts % (Manual) 89 H Lymphocytes % (Manual) 4 L Abs Lymphs (Manual) 0.3 L PT 17.2 H APTT 38.9 H Sodium 133.0 L Chloride 94 L BUN 26 H Lactic Acid Total Bilirubin 2.8 H Direct Bilirubin 1.4 H AST 71 H Alkaline Phosphatase 162 H Creatine Kinase Total Protein 6.2 L Albumin 3.1 L Urine Protein Urine Ketones Urine Urobilinogen Urine Ascorbic Acid 08/05/20 08/05/20 08/05/20 11:09 11:09 14:05 RBC MCV MCH RDW Plt Count Seg Neuts % (Manual) Lymphocytes % (Manual) Abs Lymphs (Manual) PT APTT Sodium Chloride BUN Lactic Acid 4.6 H Total Bilirubin Direct Bilirubin AST Alkaline Phosphatase Creatine Kinase 40 L Total Protein Albumin Urine Protein 30 H Urine Ketones TRACE H Urine Urobilinogen 4.0 H Urine Ascorbic Acid 20 H 08/05/20 16:45 Laboratory shows a troponin leak mildly elevated. And elevated bilirubin of 2.8 and a lactic acid of 4.6. - Diagnostic Test Radiology reviewed: Image reviewed, Reports reviewed Radiology results interpreted by me: 08/05/20 16:48 Chest X-Ray 08/05/20 12:52 IMPRESSION: New small left effusion. Moderate cardiomegaly. Chest x-ray shows moderate cardiomegaly and a new small left pleural effusion. - Consults Dr. Alden Ledezma, Manager Audio Time consulted: 15:24 Critical Care Note - Critical Care Note Total time excluding time spent on procedures (mins): 60 - IV antiarrhythmic medications to control atrial fib with rapid RVR. Borderline hypotension and congestive heart failure. Discussions with ict account manager cloth painter and mental health administration regarding patient's dementia and mental status and cooperation with medical care. Discharge - Discharge Clinical Impression: Atrial flutter with rapid ventricular response, Pruritic rash, Cardiomyopathy, Congestive heart failure, Dementia Condition: Critical Disposition: ADMITTED INPATIENT Admitting Provider: Raymond (Grading Machine Feeder) Unit Admitted: ICU Referrals: BREANNE RAE MD [Primary Care Provider] - Follow up as needed I personally performed the services described in the documentation, reviewed and edited the documentation which was dictated to the scribe in my presence, and it accurately records my words and actions.
[2020-08-05] MEDS ORDERED: DEXTROSE 50%-WATER 25 GM/50 ML DISP.SYRIN IV PRN ×2 (17:14)
[2020-08-05] MEDS ORDERED: RINGERS SOLUTION,LACTATED 1,000 ML IV PRN (17:14)
[2020-08-05] MEDS ORDERED: GLUCAGON,HUMAN RECOMB 1 MG INJ SUBCUT PRN (17:14)
[2020-08-05] MEDS ORDERED: DEXTROSE 40% GEL 15 GM TUBE PO PRN ×2 (17:14)
--- NOTE | 2020-08-05 17:40 | CRITICAL CARE ADMISSION REPORT ---
HPI Date:: 08/05/20 Time:: 17:00 Reason for ICU Reason:: Rapid afib, dysphagia, IV amiodarone, IVC Admission Date/Time & PCP: Admission Date/Time: 08/05/20 16:46 Primary Care Provider: BREANNE ALY MD HPI: This patient is an 85 YO man who has had dysphagia for several weeks with decreasing PO intake. He is brought to the ED today by his son. He was at a gastroenterologists office and was found to have a HR of 170s in a rapid afib. He is not able to take pills. IV metoprolol did not effect a change in HR, he had one dose of IV digoxin with no effect yet. He is demented and wants to go home. However without being able to take pills and an uncontrolled rate of 170s he will be in CHF or have an AMI relatively soon. He will therefore be committed for the ability to have his HR controlled and perhaps a GI evaluation. He will need a sitter. History obtained from:: Patient, son and Dr. Jason. - Diagnosis/Plan (1) Atrial fibrillation with rapid ventricular response Is this a current diagnosis for this admission?: Yes Plan: He will be on IV amiodarone. (2) Dementia Qualifiers: Dementia type: unspecified type Is this a current diagnosis for this admission?: Yes Plan: This is the reason for the IVC. His is also demented. Son is in process of obtaining gaurdianship. Past Medical History Cardiac Medical History: Reports: Atrial Fibrillation - 02/25/17, Congestive Heart Failure Denies: Coronary Artery Disease, Myocardial Infarction, Hypertension Pulmonary Medical History: Denies: Asthma, Bronchitis, Chronic Obstructive Pulmonary Disease (COPD), Pneumonia Neurological Medical History: Denies: Seizures Endocrine Medical History: Reports: Diabetes Mellitus Type 2 GI Medical History: Reports: Cirrhosis Musculoskeltal Medical History: Reports: Arthritis - RIGHT SHOULDER Psychiatric Medical History: Denies: Depression Hematology: Denies: Anemia Past Surgical History Past Surgical History: Reports: Orthopedic Surgery - Left AKA, Other - Multiple sinus surgeries Denies: Pacemaker Social/Family History - Social History Smoking Status: Former Smoker Frequency of Alcohol Use: Occasional - Patient drinks on a regular basis. Hx Recreational Drug Use: No Drugs: None Hx Prescription Drug Abuse: No - Medication/Allergies Home Medications: Furosemide [Lasix 40 mg Tablet] 40 mg PO DAILY #30 tablet 07/18/20 Metoprolol Succinate [Toprol Xl 50 mg Tab.sr] 50 mg PO DAILY #30 tab.sr.24h 07/18/20 Triamcinolone Acetonide [Aristocort 0.5% Cream 15 gm] 1 applic TP BID #1 tube 07/18/20 Allergies/Adverse Reactions: No Known Allergies Allergy (Verified 07/29/17 10:12) Review of Systems Constitutional: PRESENT: anorexia, weakness Eyes: ABSENT: visual disturbances Ears: ABSENT: hearing changes Cardiovascular: PRESENT: other - Xiphoid pain.. ABSENT: chest pain, dyspnea on exertion, edema, orthropnea, palpitations Respiratory: ABSENT: cough, hemoptysis Gastrointestinal: PRESENT: dysphagia. ABSENT: abdominal pain, constipation, diarrhea, hematemesis, hematochezia, nausea, vomiting Genitourinary: ABSENT: dysuria, hematuria Musculoskeletal: ABSENT: joint swelling Integumentary: ABSENT: rash, wounds Neurological: ABSENT: abnormal gait, abnormal speech, confusion, dizziness, focal weakness, syncope Endocrine: ABSENT: cold intolerance, heat intolerance, polydipsia, polyuria Physical Exam Vital Signs: Temp Pulse Resp BP Pulse Ox 97.3 F 94 27 H 99/77 L 94 08/05/20 10:15 08/05/20 10:15 08/05/20 13:01 08/05/20 13:30 08/05/20 11:03 Intake & Output 08/04/20 08/05/20 08/06/20 06:59 06:59 06:59 Weight 80.739 kg Weight/Height Weight 80.739 kg Height 5 ft 10 in General appearance: PRESENT: no acute distress, cooperative Head exam: PRESENT: atraumatic, normocephalic Eye exam: PRESENT: conjunctiva pink, EOMI, PERRLA. ABSENT: scleral icterus Ear exam: PRESENT: normal external ear exam Mouth exam: PRESENT: moist, tongue midline Respiratory exam: PRESENT: clear to auscultation madi. ABSENT: rales, rhonchi, wheezes Cardiovascular exam: PRESENT: irregular rhythm, tachycardia Pulses: PRESENT: normal dorsalis pedis pul GI/Abdominal exam: PRESENT: normal bowel sounds, soft. ABSENT: distended, guarding, mass, organolmegaly, rebound, tenderness Rectal exam: PRESENT: deferred Extremities exam: PRESENT: full ROM. ABSENT: calf tenderness, clubbing, pedal edema Musculoskeletal exam: PRESENT: normal inspection Neurological exam: PRESENT: alert, altered, awake, oriented to person, CN II-XII grossly intact, other - Confused at times Skin exam: PRESENT: dry, intact, warm. ABSENT: cyanosis, rash Laboratory/Radiographs Laboratory Results: 08/05/20 11:09 08/05/20 11:09 08/05/20 08/05/20 08/05/20 11: 11: 11:09 WBC 6.8 RBC 3.26 L Hgb 13.6 Hct 39.8 MCV 122 H D MCH 41.7 H MCHC 34.1 RDW 18.2 H Plt Count 123 L Seg Neutrophils % Not Reportable Sodium 133.0 L Potassium 3.6 Chloride 94 L Carbon Dioxide 25 Anion Gap 14 BUN 26 H Creatinine 0.65 Est GFR ( Amer) > 60 Glucose 105 Lactic Acid Calcium 9.1 Magnesium 1.9 Total Bilirubin 2.8 H AST 71 H Alkaline Phosphatase 162 H Total Protein 6.2 L Albumin 3.1 L Urine Color Urine Appearance Urine pH Ur Specific [place] Urine Protein Urine Glucose (UA) Urine Ketones Urine Blood Urine Nitrite Ur Leukocyte Esterase Urine WBC (Auto) Urine RBC (Auto) 08/05/20 08/05/20 11: 14:05 WBC RBC Hgb Hct MCV MCH MCHC RDW Plt Count Seg Neutrophils % Sodium Potassium Chloride Carbon Dioxide Anion Gap BUN Creatinine Est GFR ( Amer) Glucose Lactic Acid 4.6 H Calcium Magnesium Total Bilirubin AST Alkaline Phosphatase Total Protein Albumin Urine Color CHELE Urine Appearance SLIGHTLY-CLOUDY Urine pH 5.0 Ur Specific [place] 1.029 Urine Protein 30 H Urine Glucose (UA) NEGATIVE Urine Ketones TRACE H Urine Blood NEGATIVE Urine Nitrite NEGATIVE Ur Leukocyte Esterase NEGATIVE Urine WBC (Auto) 2 Urine RBC (Auto) 2 08/05/20 08/05/20 08/05/20 11: 11: 14:05 Creatine Kinase 40 L Troponin I 0.043 0.039 Impressions: Chest X-Ray 08/05/20 12:52 IMPRESSION: New small left effusion. Moderate cardiomegaly. EKG: Atrial fibrillation at 177. All labs, radiographs, diagnostic studies and EKGs were personally reviewed: Yes In addition, reports of radiographic and diagnostic studies were read: Yes Critical Time Critical Time (minutes): 40 -: The care of a critically ill patient is dynamic. This note represents a static moment in the admission process. Orders and treatments may be given simultaneously and urgently, and time is not client relations representative of the treatment process. This patient requires Critical Care secondary to life threatening organ or limb dysfunction. Without Critical Care services, the patient is at risk for increased mortality and morbidity.
[2020-08-05] MEDS: DEXTROSE 5%-WATER 500 ML with AMIODARONE HCL 900 MG IV PRN ×2 (19:00)
[2020-08-05] MEDS ORDERED: HALOPERIDOL LACTATE INJ 5 MG/1 ML VIAL ONE (19:34)
[2020-08-05] MEDS ORDERED: DIPHENHYDRAMINE HCL 50 MG/ML VIAL ONE (19:43)
[2020-08-05] MEDS ORDERED: DIPHENHYDRAMINE HCL 50 MG/ML VIAL IV ONE (20:30)
[2020-08-05] MEDS ORDERED: HALOPERIDOL LACTATE INJ 5 MG/1 ML VIAL IV ONE (20:30)
[2020-08-05] MEDS ORDERED: MAGNESIUM SULFATE/D5W 1 GM/100 ML RTUPB IV ONE (21:00)
[2020-08-05] MEDS: ENOXAPARIN SODIUM INJ 80 MG/0.8 ML DISP.SYRIN SUBCUT SCH (21:50)
--- NOTE | 2020-08-05 22:56 | EKG REPORT ---
SEVERITY:- ABNORMAL ECG - ATRIAL FIBRILLATION WITH RAPID V-RATE LEFT AXIS DEVIATION BORDERLINE R WAVE PROGRESSION, ANTERIOR LEADS REPOLARIZATION ABNORMALITY, PROB RATE RELATED : Confirmed by: Kee Levin 05-Aug-2020 22:56:10
[2020-08-06] MEDS ORDERED: AMIODARONE HCL INJ 150 MG/3 ML VIAL IV ONE ×2 (05:26→05:33)
[2020-08-06 05:51] LABS: HEMATOCRIT 37.4 % (37.9-51.0); HEMOGLOBIN 13.4 g/dL (13.5-17.0); MEAN CORPUSCULAR HEMOGLOBIN 42.5 pg (27.0-33.4); MEAN CORPUSCULAR HGB CONC 35.7 g/dL (32.0-36.0); MEAN CORPUSCULAR VOLUME 119 fl (80-97); PLATELET COUNT 121 10^3/uL (150-450); RED BLOOD COUNT 3.14 10^6/uL (4.35-5.55); RED CELL DISTRIBUTION WIDTH 17.7 % (11.5-14.0)
[2020-08-06 05:57] LABS: ANION GAP 11 (5-19); BLOOD UREA NITROGEN 22 mg/dL (7-20); CALCIUM 8.7 mg/dL (8.4-10.2); CARBON DIOXIDE 25 mmol/L (22-30); CHLORIDE 97 mmol/L (98-107); GLUCOSE 110 mg/dL (75-110); POTASSIUM 3.5 mmol/L (3.6-5.0)
[2020-08-06 05:58] LABS: ABSOLUTE LYMPHOCYTES# (MANUAL) 0.5 10^3/uL (0.5-4.7); ABSOLUTE MONOCYTES # (MANUAL) 0.5 10^3/uL (0.1-1.4); BASOPHILS % (MANUAL) 0 % (0-2); EOSINOPHILS % (MANUAL) 2 % (0-6); LYMPHOCYTES % (MANUAL) 8 % (13-45); MONOCYTES % (MANUAL) 8 % (3-13); SEGMENTED NEUTROPHILS % (MAN) 82 % (42-78); TOTAL CELLS COUNTED 100; TOXIC GRANULATION SLIGHT
[2020-08-06 05:59] LABS: ANISOCYTOSIS 1+; OVALOCYTES SLIGHT; PLATELET COMMENT DECREASED; POIKILOCYTOSIS SLIGHT; SCHISTOCYTES SLIGHT; TEAR DROP CELLS SLIGHT
[2020-08-06] MEDS: ENOXAPARIN SODIUM INJ 80 MG/0.8 ML DISP.SYRIN SUBCUT SCH ×2 (06:07→18:23)
[2020-08-06] MEDS: DEXTROSE 5%-WATER 500 ML with AMIODARONE HCL 900 MG IV PRN ×2 (06:08)
--- NOTE | 2020-08-06 09:32 | PDOC CRITICAL CARE PROG REPORT ---
General Date:: 08/06/20 ICU Day:: 2 Hospital Day:: 2 Resuscitation Status: Full Code Events in the past 12 to 24 Hours:: HR still uncontrolled Review of systems relevant to events:: CV, neurologic. Reason for ICU Addmission:: Rapid afib, dysphagia, IV amiodarone, IVC - Medications: Medications reviewed and adjusted accordingly: Yes Vasopressors:: None Sedation:: None Physical Exam Vital Signs: Temp Pulse Resp BP Pulse Ox 98.8 F 128 H 21 H 120/77 89 L 08/06/20 08:00 08/06/20 08:00 08/06/20 08:01 08/06/20 08:00 08/06/20 08:00 Intake & Output 08/05/20 08/06/20 08/07/20 06:59 06:59 06:59 Intake Total 333 Output Total 200 Balance 133 Weight 80 kg Weight/Height Weight 80 kg Height 5 ft 10 in General appearance: PRESENT: no acute distress Head exam: PRESENT: atraumatic, normocephalic Eye exam: PRESENT: conjunctiva pink, EOMI, PERRLA. ABSENT: scleral icterus Ear exam: PRESENT: normal external ear exam Mouth exam: PRESENT: moist, tongue midline Respiratory exam: PRESENT: clear to auscultation madi. ABSENT: rales, rhonchi, wheezes Cardiovascular exam: PRESENT: irregular rhythm, tachycardia GI/Abdominal exam: PRESENT: normal bowel sounds, soft. ABSENT: distended, guarding, mass, organolmegaly, rebound, tenderness Rectal exam: PRESENT: deferred Extremities exam: PRESENT: other - Three sacral decubiti, multiple abrasions on arms. All present on admission, not in H&P. Neurological exam: PRESENT: alert, altered, awake, CN II-XII grossly intact, other - Confused Skin exam: PRESENT: other - As above Laboratory/Radiographs Laboratory Results: 08/06/20 04:01 08/06/20 04:01 08/05/20 08/05/20 08/05/20 11:09 11:09 11:09 WBC 6.8 RBC 3.26 L Hgb 13.6 Hct 39.8 MCV 122 H D MCH 41.7 H MCHC 34.1 RDW 18.2 H Plt Count 123 L Seg Neutrophils % Not Reportable Sodium 133.0 L Potassium 3.6 Chloride 94 L Carbon Dioxide 25 Anion Gap 14 BUN 26 H Creatinine 0.65 Est GFR ( Amer) > 60 Glucose 105 Lactic Acid Calcium 9.1 Magnesium 1.9 Total Bilirubin 2.8 H AST 71 H Alkaline Phosphatase 162 H Total Protein 6.2 L Albumin 3.1 L Urine Color Urine Appearance Urine pH Ur Specific [place] Urine Protein Urine Glucose (UA) Urine Ketones Urine Blood Urine Nitrite Ur Leukocyte Esterase Urine WBC (Auto) Urine RBC (Auto) 08/05/20 08/05/20 08/06/20 11: 14:05 04:01 WBC 6.0 RBC 3.14 L Hgb 13.4 L Hct 37.4 L MCV 119 H MCH 42.5 H MCHC 35.7 RDW 17.7 H Plt Count 121 L Seg Neutrophils % Not Reportable Sodium Potassium Chloride Carbon Dioxide Anion Gap BUN Creatinine Est GFR ( Amer) Glucose Lactic Acid 4.6 H Calcium Magnesium Total Bilirubin AST Alkaline Phosphatase Total Protein Albumin Urine Color CHELE Urine Appearance SLIGHTLY-CLOUDY Urine pH 5.0 Ur Specific [place] 1.029 Urine Protein 30 H Urine Glucose (UA) NEGATIVE Urine Ketones TRACE H Urine Blood NEGATIVE Urine Nitrite NEGATIVE Ur Leukocyte Esterase NEGATIVE Urine WBC (Auto) 2 Urine RBC (Auto) 2 08/06/20 04:01 WBC RBC Hgb Hct MCV MCH MCHC RDW Plt Count Seg Neutrophils % Sodium 133.0 L Potassium 3.5 L Chloride 97 L Carbon Dioxide 25 Anion Gap 11 BUN 22 H Creatinine 0.47 L Est GFR ( Amer) > 60 Glucose 110 Lactic Acid Calcium 8.7 Magnesium Total Bilirubin AST Alkaline Phosphatase Total Protein Albumin Urine Color Urine Appearance Urine pH Ur Specific [place] Urine Protein Urine Glucose (UA) Urine Ketones Urine Blood Urine Nitrite Ur Leukocyte Esterase Urine WBC (Auto) Urine RBC (Auto) 08/05/20 08/05/20 08/05/20 11:09 11:09 14:05 Creatine Kinase 40 L Troponin I 0.043 0.039 NT-Pro-B Natriuret Pep 08/05/20 14:05 Creatine Kinase Troponin I NT-Pro-B Natriuret Pep 3680 H Impressions: Chest X-Ray 08/05/20 12:52 IMPRESSION: New small left effusion. Moderate cardiomegaly. EKG: Still in atrial fibrillation. Rate 120-140. All labs, radiographs, diagnostic studies and EKGs were personally reviewed: Yes In addition, reports of radiographic and diagnostic studies were read: Yes Assessment and Plan - Diagnosis (1) Atrial fibrillation with rapid ventricular response Is this a current diagnosis for this admission?: Yes Plan: This is hampered by his inability to take pills. Dr. Ledezma has seen in consult and suggests IV lopressor and digoxin. (2) Dementia Qualifiers: Dementia type: unspecified type Is this a current diagnosis for this admission?: Yes Plan: This is what prompted the medical IVC. His dementia precludes his understanding of the severity. A HR of 170 uncontrolled in an 85 yo man will result in CHF or AMI in short order. Plan Summary: Will try to get his HR under better control to undergo an EGD. Critical Time Critical Time (minutes): 35 Level of Care: ICU Anticipated discharge: Home with Homehealth Anticipated DC Timeframe: Other -: 1. The care of a critical patient is a dynamic process. This note is a c s s representative synopsis but static in nature. The timeframe for treatments given in order is not necessarily the actual time these treatments may have been done. 2. This patient requires critical care secondary to ongoing requirements for therapy not offered or safe outside the critical care environment. Transfer to a lower level of care will result in altered life or limb morbidity and mortality. 3. Multidisciplinary rounds completed. 4. ABCDE bundle addressed.
[2020-08-06] MEDS: METOPROLOL TARTRATE PF/INJ 5 MG/5 ML SDV IV SCH ×5 (09:41→21:47)
[2020-08-06] MEDS ORDERED: DIGOXIN INJ 0.5 MG/2 ML AMPULE IV ONE (10:00)
[2020-08-06] MEDS: TRIAMCINOLONE ACETONIDE 0.5% CREAM 15 GM TP SCH ×2 (13:00→18:22)
--- NOTE | 2020-08-06 13:09 | PDOC CONSULTATION ---
Consultation Consult Date: 08/06/20 Attending physician:: YESSICA LOZA Provider Consulted: OPAL MCKEON Consult reason:: Atrial fibrillation History of Present Illness Admission Date/PCP: 08/05/20 16:46 BREANNE ALY MD Patient complains of: Dementia-no complaints History of Present Illness: JUDIE MOORE JR is a 85 year old male With limited history. Patient is difficult to communicate with on account of dementia. He has been committed involuntarily. The most pressing issue presently is atrial fibrillation with rapid ventricular response. It is unknown to me how long the patient has had atrial fibrillation. It is also apparent that the patient was not on therapy for this problem. He is not anticoagulated. Since admission to the intensive care unit it has been quite difficult to control the ventricular rate on account of atrial fibrillation. Patient has been started on intravenous amiodarone infusion with suboptimal success. At the time of my evaluation his ventricular rate is in the 120 bpm range. Patient seems to be comfortable. He is unable to swallow. Apparently there is reported dysphagia and the need for vaginal validation procedure was recommended once atrial fibrillation and she was addressed. However patient is unable to tolerate any medications or swallow them. This makes for difficult management problem. Review of systems cannot be obtained due to dementia and patient being mildly combative at the time of my evaluation. No pertinent family history cannot be obtained reliably. Past Medical History Cardiac Medical History: Reports: Atrial Fibrillation - 02/25/17, Congestive Heart Failure Denies: Coronary Artery Disease, Myocardial Infarction, Hypertension Pulmonary Medical History: Denies: Asthma, Bronchitis, Chronic Obstructive Pulmonary Disease (COPD), Pneumonia Neurological Medical History: Denies: Seizures Endocrine Medical History: Reports: Diabetes Mellitus Type 2 GI Medical History: Reports: Cirrhosis Musculoskeltal Medical History: Reports: Arthritis - RIGHT SHOULDER Psychiatric Medical History: Denies: Depression Hematology: Denies: Anemia Past Surgical History Past Surgical History: Reports: Orthopedic Surgery - Left AKA, Other - Multiple sinus surgeries Denies: Pacemaker Social History Smoking Status: Unknown if Ever Smoked Electronic Cigarette use?: No Frequency of Alcohol Use: Heavy Hx Recreational Drug Use: No Drugs: None Hx Prescription Drug Abuse: No - Advance Directive Resuscitation Status: Full Code Family History Family History: None, Reviewed & Not Pertinent Parental Family History Reviewed: No - Unable to obtain due to dementia Children Family History Reviewed: NA Sibling(s) Family History Reviewed.: NA Medication/Allergy Home Medications: Furosemide [Lasix 40 mg Tablet] 40 mg PO DAILY #30 tablet 07/18/20 Metoprolol Succinate [Toprol Xl 50 mg Tab.sr] 50 mg PO DAILY #30 tab.sr.24h 07/18/20 Triamcinolone Acetonide [Aristocort 0.5% Cream 15 gm] 1 applic TP BID #1 tube 07/18/20 Cyproheptadine HCl 4 mg PO TID 08/05/20 Diltiazem HCl [Diltiazem ER] 240 mg PO DAILY 08/05/20 Famotidine [Acid Four Roll Calender Operator] 20 mg PO DAILY 08/05/20 Ginseng 250 mg PO DAILY 08/05/20 Mupirocin [Bactroban 2% Ointment 22 gm] 1 applic TP TID 08/05/20 Potassium Chloride 20 meq PO BID 08/05/20 Allergies/Adverse Reactions: No Known Allergies Allergy (Verified 07/29/17 10:12) Review of Systems ROS unobtainable: Due to mental status Physical Exam Vital Signs: Temp Pulse Resp BP Pulse Ox 98.8 F 114 H 25 H 105/48 L 100 08/06/20 10:00 08/06/20 10:00 08/06/20 10:01 08/06/20 10:00 08/06/20 10:01 Intake & Output 08/05/20 08/06/20 08/07/20 06:59 06:59 06:59 Intake Total 333 Output Total 200 500 Balance 133 -500 Weight 80 kg General appearance: PRESENT: mild distress, well-developed, well-nourished Head exam: PRESENT: atraumatic, normocephalic Eye exam: PRESENT: conjunctiva pink, EOMI Respiratory exam: PRESENT: symmetrical, unlabored Cardiovascular exam: PRESENT: irregular rhythm, +S1, +S2 Pulses: PRESENT: normal radial pulses GI/Abdominal exam: PRESENT: soft Rectal exam: PRESENT: deferred Musculoskeletal exam: PRESENT: normal inspection Neurological exam: PRESENT: alert, awake Psychiatric exam: PRESENT: unusual affect Skin exam: PRESENT: dry, intact Results Laboratory Results: 08/06/20 04:01 08/06/20 04:01 08/05/20 08/05/20 08/06/20 11:09 14:05 04:01 WBC 6.0 RBC 3.14 L Hgb 13.4 L Hct 37.4 L MCV 119 H MCH 42.5 H MCHC 35.7 RDW 17.7 H Plt Count 121 L Seg Neutrophils % Not Reportable Sodium Potassium Chloride Carbon Dioxide Anion Gap BUN Creatinine Est GFR ( Amer) Glucose Lactic Acid 4.6 H Calcium Urine Color CHELE Urine Appearance SLIGHTLY-CLOUDY Urine pH 5.0 Ur Specific [place] 1.029 Urine Protein 30 H Urine Glucose (UA) NEGATIVE Urine Ketones TRACE H Urine Blood NEGATIVE Urine Nitrite NEGATIVE Ur Leukocyte Esterase NEGATIVE Urine WBC (Auto) 2 Urine RBC (Auto) 2 08/06/20 04:01 WBC RBC Hgb Hct MCV MCH MCHC RDW Plt Count Seg Neutrophils % Sodium 133.0 L Potassium 3.5 L Chloride 97 L Carbon Dioxide 25 Anion Gap 11 BUN 22 H Creatinine 0.47 L Est GFR ( Amer) > 60 Glucose 110 Lactic Acid Calcium 8.7 Urine Color Urine Appearance Urine pH Ur Specific [place] Urine Protein Urine Glucose (UA) Urine Ketones Urine Blood Urine Nitrite Ur Leukocyte Esterase Urine WBC (Auto) Urine RBC (Auto) 08/05/20 08/05/20 08/05/20 11:09 11:09 14:05 Creatine Kinase 40 L Troponin I 0.043 0.039 NT-Pro-B Natriuret Pep 08/05/20 14:05 Creatine Kinase Troponin I NT-Pro-B Natriuret Pep 3680 H EKG Comments: Twelve-lead EKG 08/06/2020. 5:55 AM Atrial fibrillation rapid ventricular response 150 bpm, left anterior fascicular block, QTC is 465 ms Transthoracic echocardiogram images from 03/14/2020 show ejection fraction approximately 35%. This is by visual estimation. Mitral valve is calcific. There is no aortic valve stenosis by echocardiogram. Peak aortic valve velocity is 2.1 m/s. Impressions: Chest X-Ray 08/05/20 12:52 IMPRESSION: New small left effusion. Moderate cardiomegaly. 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 Would recommend beta-blockers and MARTINEZ inhibitors if feasible. At the moment I realized that cannot be accomplished due to inability to swallow and patient being combative and confused. (2) Atrial fibrillation with rapid ventricular response Is this a current diagnosis for this admission?: Yes Plan: Previous history of pancytopenia and low platelet counts. Hematology had opined at that time that systemic anticoagulation would not be ideal for this patient Also given dementia and propensity to fall among other things he will be not ideal to pursue systemic anticoagulation safely. As for control of atrial fibrillation I would recommend metoprolol 2.5 mg to 5 mg intravenously every 2-3 hours with attention to blood pressure to titrate the heart rate down to the low 100 bpm range. As an adjunct we can use intravenous digoxin 250 mcg followed by 125 mcg once daily as maintenance. Should check a digoxin level after 48 hours after initiating therapy Would discontinue amiodarone that is being given intravenously in the next 24 to 48 hours if feasible Would inquire with pharmacy if beta-blockers or digoxin can be crushed already given in liquid form via tube or with pured foods. As a long-term strategy rate control measures would consist of oral beta- blockers or digoxin in liquid form.
[2020-08-06] MEDS ORDERED: RINGERS SOLUTION,LACTATED 1,000 ML IV PRN (15:03)
--- NOTE | 2020-08-06 17:49 | EKG REPORT ---
SEVERITY:- ABNORMAL ECG - ATRIAL FIBRILLATION, V-RATE 60-160 ABERRANT COMPLEX, POSSIBLY SUPRAVENTRICULAR LEFT ANTERIOR FASCICULAR BLOCK BORDERLINE R WAVE PROGRESSION, ANTERIOR LEADS : Confirmed by: Kee Levin 06-Aug-2020 17:49:01
[2020-08-06] MEDS: RINGERS SOLUTION,LACTATED 1,000 ML IV PRN (21:48)
[2020-08-06] MEDS: ALBUMIN HUMAN 12.5 GM/50 ML RTUINJ IV SCH ×2 (22:45→23:35)
[2020-08-07] MEDS: ALBUMIN HUMAN 12.5 GM/50 ML RTUINJ IV SCH ×2 (00:30→01:19)
[2020-08-07] MEDS: METOPROLOL TARTRATE PF/INJ 5 MG/5 ML SDV IV SCH ×8 (01:19→22:09)
[2020-08-07] MEDS: RINGERS SOLUTION,LACTATED 1,000 ML IV PRN ×3 (04:21→20:10)
[2020-08-07 04:55] LABS: HEMATOCRIT 39.6 % (37.9-51.0); HEMOGLOBIN 13.4 g/dL (13.5-17.0); MEAN CORPUSCULAR HEMOGLOBIN 41.2 pg (27.0-33.4); MEAN CORPUSCULAR HGB CONC 33.9 g/dL (32.0-36.0); MEAN CORPUSCULAR VOLUME 122 fl (80-97); PLATELET COUNT 125 10^3/uL (150-450); RED BLOOD COUNT 3.26 10^6/uL (4.35-5.55); RED CELL DISTRIBUTION WIDTH 17.5 % (11.5-14.0); WHITE BLOOD COUNT 7.4 10^3/uL (4.0-10.5)
[2020-08-07 05:02] LABS: BLOOD UREA NITROGEN 17 mg/dL (7-20); CALCIUM 9.1 mg/dL (8.4-10.2); CARBON DIOXIDE 27 mmol/L (22-30); GLUCOSE 96 mg/dL (75-110); POTASSIUM 4.1 mmol/L (3.6-5.0)
[2020-08-07 05:10] LABS: ANION GAP 9 (5-19); CHLORIDE 100 mmol/L (98-107)
[2020-08-07] MEDS: ENOXAPARIN SODIUM INJ 80 MG/0.8 ML DISP.SYRIN SUBCUT SCH ×2 (06:42→17:34)
[2020-08-07] MEDS: TRIAMCINOLONE ACETONIDE 0.5% CREAM 15 GM TP SCH ×2 (11:50→17:34)
[2020-08-07 12:25] LABS: APPEARANCE,URINE CLEAR; BILIRUBIN,URINE NEGATIVE (NEGATIVE); COLOR,URINE AMBER; GLUCOSE, URINE NEGATIVE (NEGATIVE); KETONES,URINE TRACE mg/dL (NEGATIVE); LEUKOCYTE ESTERASE,URINE NEGATIVE (NEGATIVE); NITRITE,URINE NEGATIVE (NEGATIVE); PROTEIN,URINE 100 mg/dL (NEGATIVE); URINE SPECIFIC GRAVITY 1.017
--- NOTE | 2020-08-07 13:21 | PDOC PROGRESS REPORT ---
Subjective Date:: 08/07/20 Subjective:: Patient seen and examined. He is comfortable. He is continues to be in atrial fibrillation rapid ventricular response. Reason For Visit: UNCONTROLLED RAPID ATRIAL FIBRILLATION,DYSPHAGIA Physical Exam Vital Signs: Temp Pulse Resp BP Pulse Ox 98 F 109 H 36 H 121/97 H 94 08/07/20 10:00 08/07/20 08:00 08/07/20 10:01 08/07/20 10:01 08/07/20 10:01 Intake & Output 08/06/20 08/07/20 08/08/20 06:59 06:59 06:59 Intake Total 333 1748 Output Total 200 800 200 Balance 133 948 -200 Weight 80 kg 78.7 kg General appearance: PRESENT: no acute distress, cooperative, well-developed, well-nourished Head exam: PRESENT: atraumatic, normocephalic Eye exam: PRESENT: conjunctiva pink, EOMI Respiratory exam: PRESENT: clear to auscultation madi, symmetrical, unlabored Cardiovascular exam: PRESENT: irregular rhythm, +S1, +S2 Pulses: PRESENT: normal radial pulses GI/Abdominal exam: PRESENT: soft Rectal exam: PRESENT: deferred Musculoskeletal exam: PRESENT: normal inspection Neurological exam: PRESENT: alert, awake, oriented to person, oriented to place Psychiatric exam: PRESENT: appropriate affect Skin exam: PRESENT: dry, intact, normal color Results Laboratory Results: 08/07/20 04:15 08/07/20 04:15 08/06/20 08/07/20 08/07/20 22:18 04:15 04:15 WBC 7.4 RBC 3.26 L Hgb 13.4 L Hct 39.6 MCV 122 H MCH 41.2 H MCHC 33.9 RDW 17.5 H Plt Count 125 L Sodium 135.8 L Potassium 4.1 Chloride 100 Carbon Dioxide 27 Anion Gap 9 BUN 17 Creatinine 0.50 L Est GFR ( Amer) > 60 Glucose 96 Serum Osmolality 287 Calcium 9.1 Urine Color Urine Appearance Urine pH Ur Specific [place] Urine Protein Urine Glucose (UA) Urine Ketones Urine Blood Urine Nitrite Ur Leukocyte Esterase Urine WBC (Auto) 08/07/20 11:45 WBC RBC Hgb Hct MCV MCH MCHC RDW Plt Count Sodium Potassium Chloride Carbon Dioxide Anion Gap BUN Creatinine Est GFR ( Amer) Glucose Serum Osmolality Calcium Urine Color CHELE Urine Appearance CLEAR Urine pH 5.0 Ur Specific [place] 1.017 Urine Protein 100 H Urine Glucose (UA) NEGATIVE Urine Ketones TRACE H Urine Blood NEGATIVE Urine Nitrite NEGATIVE Ur Leukocyte Esterase NEGATIVE Urine WBC (Auto) 1 08/05/20 08/05/20 08/05/20 11:09 11:09 14:05 Creatine Kinase 40 L Troponin I 0.043 0.039 NT-Pro-B Natriuret Pep 08/05/20 14:05 Creatine Kinase Troponin I NT-Pro-B Natriuret Pep 3680 H Impressions: Chest X-Ray 08/05/20 12:52 IMPRESSION: New small left effusion. Moderate cardiomegaly. Assessment & Plan - Diagnosis (1) Cardiomyopathy Qualifiers: Cardiomyopathy type: unspecified Qualified Code(s): I42.9 - Cardiomyopathy, unspecified Is this a current diagnosis for this admission?: Yes Plan: Dilated cardiomyopathy. Etiology has not been established. Appears to be euvolemic. Watch volume status. Therapy limited significantly on account of ongoing issues including dementia and ability to tolerate oral intake. (2) Atrial fibrillation with rapid ventricular response Is this a current diagnosis for this admission?: Yes Plan: Atrial fibrillation rapid ventricular response Patient has only been on beta-jaleel intravenously. I recommended adding digoxin 250 mcg intravenously followed by 125 mcg intra venously as maintenance dose Check a digoxin level in 36 to 48 hours to ensure that we are within therapeutic range I am a bit hesitant to recommend use of calcium channel blockers given history of LV dysfunction apparent on a previous echocardiogram from a few months ago. His overall management strategy is quite complicated on account of inability to administer oral drugs. This is due to dysphagia. Liquid preparations may help
--- NOTE | 2020-08-07 17:13 | PDOC CRITICAL CARE PROG REPORT ---
General Date:: 08/07/20 ICU Day:: 2 Hospital Day:: 2 Resuscitation Status: Full Code Events in the past 12 to 24 Hours:: Patient has remained tachycardic 130s. Digoxin was loaded yesterday and started again today. Review of systems relevant to events:: ICU day: 2 Neuro: At baseline, patient has dementia. No significant changes in mental status. He remains confused. Pain management/sedation: He has not required any pain medications Pulmonary: He has remained on room air with SPO2 in the high 80s to 90s. Continue to monitor respiratory status. Cardiovascular: Patient remains tachycardic spite amiodarone. Cardiology consult, Dr. Ledezma contribution appreciated. I have spoken with Dr. Andrade as well today who agrees with continuing digoxin but feels that he was adequately bolused and recommended not bolusing again. I will speak with Dr. Ledezma regarding this. Heme: CBC within normal limits. No signs of platelet dysfunction. Plan: DVT prophylaxis: Lovenox 80 mg subcu every 12. Renal: Renal panel was normal today. Continue maintenance IV fluids. Gastrointestinal: Patient has a history of dysphagia secondary to dementia. We will ask GI to evaluate further prior to discharge. Plan: Diet: N.p.o. for now. We will evaluate as above for safety swallowing. 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 ID: No signs of infection or leukocytosis at this time. No antibiotic needs. Barriers to discharge from ICU: Patient with persistent tachycardia now requiring digoxin. We will reevaluate for transfer from ICU once tachycardia better controlled. Reason for ICU Addmission:: Rapid afib, dysphagia, IV amiodarone, IVC - Medications: Medications reviewed and adjusted accordingly: Yes Physical Exam Vital Signs: Temp Pulse Resp BP Pulse Ox 98 F 109 H 25 H 134/99 H 94 08/07/20 10:00 08/07/20 08:00 08/07/20 14:01 08/07/20 14:01 08/07/20 14:01 Intake & Output 08/06/20 08/07/20 08/08/20 06:59 06:59 06:59 Intake Total 333 1748 1000 Output Total 200 800 300 Balance 133 948 700 Weight 80 kg 78.7 kg Weight/Height Weight 78.7 kg Height 5 ft 10 in General appearance: PRESENT: no acute distress, cooperative Eye exam: PRESENT: EOMI, PERRLA Ear exam: PRESENT: normal external ear exam Mouth exam: PRESENT: moist Neck exam: PRESENT: full ROM. ABSENT: lymphadenopathy, tracheal deviation Respiratory exam: PRESENT: clear to auscultation madi, symmetrical. ABSENT: rales, rhonchi, wheezes Cardiovascular exam: PRESENT: tachycardia Pulses: PRESENT: +2 pedal pulses bilateral Vascular exam: PRESENT: normal capillary refill GI/Abdominal exam: PRESENT: normal bowel sounds Extremities exam: PRESENT: +1 edema Musculoskeletal exam: PRESENT: full ROM, normal inspection Neurological exam: PRESENT: alert, awake, CN II-XII grossly intact Psychiatric exam: PRESENT: appropriate affect Skin exam: PRESENT: pallor, warm Laboratory/Radiographs Laboratory Results: 08/07/20 04:15 08/07/20 04:15 08/06/20 08/07/20 08/07/20 22:18 04:15 04:15 WBC 7.4 RBC 3.26 L Hgb 13.4 L Hct 39.6 MCV 122 H MCH 41.2 H MCHC 33.9 RDW 17.5 H Plt Count 125 L Sodium 135.8 L Potassium 4.1 Chloride 100 Carbon Dioxide 27 Anion Gap 9 BUN 17 Creatinine 0.50 L Est GFR ( Amer) > 60 Glucose 96 Serum Osmolality 287 Calcium 9.1 Urine Color Urine Appearance Urine pH Ur Specific [place] Urine Protein Urine Glucose (UA) Urine Ketones Urine Blood Urine Nitrite Ur Leukocyte Esterase Urine WBC (Auto) 08/07/20 11:45 WBC RBC Hgb Hct MCV MCH MCHC RDW Plt Count Sodium Potassium Chloride Carbon Dioxide Anion Gap BUN Creatinine Est GFR ( Amer) Glucose Serum Osmolality Calcium Urine Color CHELE Urine Appearance CLEAR Urine pH 5.0 Ur Specific [place] 1.017 Urine Protein 100 H Urine Glucose (UA) NEGATIVE Urine Ketones TRACE H Urine Blood NEGATIVE Urine Nitrite NEGATIVE Ur Leukocyte Esterase NEGATIVE Urine WBC (Auto) 1 08/05/20 08/05/20 08/05/20 11:09 11:09 14:05 Creatine Kinase 40 L Troponin I 0.043 0.039 NT-Pro-B Natriuret Pep 08/05/20 14:05 Creatine Kinase Troponin I NT-Pro-B Natriuret Pep 3680 H Impressions: Chest X-Ray 08/05/20 12:52 IMPRESSION: New small left effusion. Moderate cardiomegaly. All labs, radiographs, diagnostic studies and EKGs were personally reviewed: Yes In addition, reports of radiographic and diagnostic studies were read: Yes Assessment and Plan - Diagnosis (1) Atrial fibrillation with rapid ventricular response Is this a current diagnosis for this admission?: Yes Plan: Digoxin started today. Amiodarone held. Continue to follow closely with cardiology. Critical Time Critical Time (minutes): 64 Level of Care: ICU Anticipated discharge: Home with Homehealth -: 1. The care of a critical patient is a dynamic process. This note is a wine sales representative synopsis but static in nature. The timeframe for treatments given in order is not necessarily the actual time these treatments may have been done. 2. This patient requires critical care secondary to ongoing requirements for therapy not offered or safe outside the critical care environment. Transfer to a lower level of care will result in altered life or limb morbidity and mortality. 3. Multidisciplinary rounds completed. 4. ABCDE bundle addressed.
[2020-08-07] MEDS: DIGOXIN INJ 0.5 MG/2 ML AMPULE IV SCH (17:37)
--- NOTE | 2020-08-07 18:06 | EKG REPORT ---
SEVERITY:- ABNORMAL ECG - ATRIAL FIBRILLATION MULTIFORM VENTRICULAR PREMATURE COMPLEXES LAD, CONSIDER LEFT ANTERIOR FASCICULAR BLOCK ABNRM R PROG, CONSIDER ASMI OR LEAD PLACEMENT NONSPECIFIC T ABNORMALITIES, ANT-LAT LEADS : Confirmed by: Kee Levin 07-Aug-2020 18:05:38
[2020-08-07 20:23] LABS: ABSOLUTE EOSINOPHILS # (AUTO) 0.1 10^3/uL (0.0-0.6); ABSOLUTE LYMPHOCYTES (AUTO) 0.6 10^3/uL (0.5-4.7); ABSOLUTE MONOCYTES (AUTO) 0.7 10^3/uL (0.1-1.4); ABSOLUTE NEUT (AUTO) 5.8 10^3/uL (1.7-8.2); BASOPHILS % (AUTO) 0.4 % (0-2); EOSINOPHILS % (AUTO) 0.9 % (0-6); HEMATOCRIT 42.4 % (37.9-51.0); HEMOGLOBIN 14.4 g/dL (13.5-17.0); LYMPHOCYTES % (AUTO) 8.3 % (13-45); MEAN CORPUSCULAR HEMOGLOBIN 41.4 pg (27.0-33.4); MEAN CORPUSCULAR HGB CONC 34.1 g/dL (32.0-36.0); MEAN CORPUSCULAR VOLUME 122 fl (80-97); MONOCYTES % (AUTO) 10.2 % (3-13); PLATELET COUNT 146 10^3/uL (150-450); RED BLOOD COUNT 3.48 10^6/uL (4.35-5.55); RED CELL DISTRIBUTION WIDTH 17.4 % (11.5-14.0); SEGMENTED NEUTROPHILS % (AUTO) 80.2 % (42-78); TOTAL CELLS COUNTED % (AUTO) 100 %; WHITE BLOOD COUNT 7.2 10^3/uL (4.0-10.5)
[2020-08-07 20:45] LABS: ALBUMIN 3.1 g/dL (3.5-5.0); ALKALINE PHOSPHATASE 125 U/L (38-126); ANION GAP 10 (5-19); ASPARTATE AMINO TRANSFERASE 67 U/L (17-59); BILIRUBIN,DIRECT 1.9 mg/dL (0.0-0.4); BILIRUBIN,TOTAL 3.8 mg/dL (0.2-1.3); BLOOD UREA NITROGEN 18 mg/dL (7-20); CALCIUM 8.9 mg/dL (8.4-10.2); CARBON DIOXIDE 25 mmol/L (22-30); CHLORIDE 100 mmol/L (98-107); GLUCOSE 98 mg/dL (75-110); POTASSIUM 3.8 mmol/L (3.6-5.0); TOTAL PROTEIN 6.1 g/dL (6.3-8.2)
[2020-08-07 20:48] LABS: ANISOCYTOSIS 1+; PLATELET COMMENT DECREASED; TEAR DROP CELLS SLIGHT; TOXIC GRANULATION SLIGHT
[2020-08-08] MEDS: METOPROLOL TARTRATE PF/INJ 5 MG/5 ML SDV IV SCH ×8 (01:59→21:20)
[2020-08-08] MEDS: RINGERS SOLUTION,LACTATED 1,000 ML IV PRN ×4 (02:07→21:19)
[2020-08-08] MEDS: ENOXAPARIN SODIUM INJ 80 MG/0.8 ML DISP.SYRIN SUBCUT SCH ×2 (05:30→17:43)
[2020-08-08] MEDS: DIGOXIN INJ 0.5 MG/2 ML AMPULE IV SCH (09:19)
[2020-08-08] MEDS: TRIAMCINOLONE ACETONIDE 0.5% CREAM 15 GM TP SCH ×2 (09:20→17:42)
--- NOTE | 2020-08-08 13:15 | PDOC PROGRESS REPORT ---
Subjective Date:: 08/08/20 Subjective:: Patient was seen and examined. He remains in the intensive care unit. No distr ess is noted. He continues to be tachycardic with heart rate in the 110 to 130 bpm range. He is normotensive. Unable to swallow. Reason For Visit: UNCONTROLLED RAPID ATRIAL FIBRILLATION,DYSPHAGIA Physical Exam Vital Signs: Temp Pulse Resp BP Pulse Ox 98.3 F 115 H 23 H 133/88 H 87 L 08/08/20 10:00 08/08/20 08:00 08/08/20 11:00 08/08/20 09:00 08/08/20 11:00 Intake & Output 08/07/20 08/08/20 08/09/20 06:59 06:59 06:59 Intake Total 1748 3378 Output Total 800 600 Balance 948 2778 Weight 78.7 kg 81.3 kg General appearance: PRESENT: no acute distress, cooperative, well-developed, well-nourished Head exam: PRESENT: atraumatic, normocephalic Eye exam: PRESENT: conjunctiva pink, EOMI Mouth exam: PRESENT: dry mucosa Respiratory exam: PRESENT: decreased breath sounds, symmetrical, unlabored Cardiovascular exam: PRESENT: irregular rhythm, +S1, +S2 Pulses: PRESENT: normal radial pulses GI/Abdominal exam: PRESENT: soft Rectal exam: PRESENT: deferred Musculoskeletal exam: PRESENT: normal inspection Neurological exam: PRESENT: alert, awake, oriented to person Psychiatric exam: PRESENT: appropriate affect Skin exam: PRESENT: dry, intact Results Laboratory Results: 08/07/20 20:14 08/07/20 20:14 08/07/20 08/07/20 20:14 20:14 WBC 7.2 RBC 3.48 L Hgb 14.4 Hct 42.4 MCV 122 H MCH 41.4 H MCHC 34.1 RDW 17.4 H Plt Count 146 L Seg Neutrophils % 80.2 H Sodium 134.8 L Potassium 3.8 Chloride 100 Carbon Dioxide 25 Anion Gap 10 BUN 18 Creatinine 0.51 L Est GFR ( Amer) > 60 Glucose 98 Calcium 8.9 Magnesium 2.0 Total Bilirubin 3.8 H AST 67 H Alkaline Phosphatase 125 Total Protein 6.1 L Albumin 3.1 L 08/05/20 08/05/20 08/05/20 11:09 11:09 14:05 Creatine Kinase 40 L Troponin I 0.043 0.039 NT-Pro-B Natriuret Pep 08/05/20 14:05 Creatine Kinase Troponin I NT-Pro-B Natriuret Pep 3680 H EKG Comments: Telemetry shows atrial fibrillation with rapid ventricular response ventricular rate is anywhere from 100 bpm 233 bpm. Impressions: Chest X-Ray 08/05/20 12:52 IMPRESSION: New small left effusion. Moderate cardiomegaly. Assessment & Plan - Diagnosis (1) Cardiomyopathy Qualifiers: Cardiomyopathy type: unspecified Qualified Code(s): I42.9 - Cardiomyopathy, unspecified Is this a current diagnosis for this admission?: Yes Plan: Dilated cardiomyopathy. Etiology has not been established. Appears to be euvolemic. Watch volume status. Therapy limited significantly on account of ongoing issues including dementia and ability to tolerate oral intake. (2) Atrial fibrillation with rapid ventricular response Is this a current diagnosis for this admission?: Yes Plan: Atrial fibrillation rapid ventricular response Patient has only been on beta-jaleel intravenously. Continue digoxin load followed by intravenous maintenance Hopefully he can be switched over to oral maintenance with beta-blockers and oral digoxin. I am a bit hesitant to recommend intravenous calcium channel blockers given LV dysfunction. His overall management strategy is quite complicated on account of inability to administer oral drugs. This is due to dysphagia. Liquid preparations may help
--- NOTE | 2020-08-08 16:18 | PDOC CRITICAL CARE PROG REPORT ---
General Date:: 08/08/20 ICU Day:: 3 Hospital Day:: 3 Resuscitation Status: Full Code Events in the past 12 to 24 Hours:: 08/07/2020: Patient has remained tachycardic 130s. Digoxin was loaded yesterday and started again today. 08/08/2020: Patient again remains tachycardic, however, he occasionally has some improvement with a heart rate in the 90s. Review of systems relevant to events:: ICU day: 3 Neuro: At baseline, patient has dementia. No significant changes in mental status. He remains confused. Pain management/sedation: He has not required any pain medications Pulmonary: He has remained on room air with SPO2 in the high 80s to 90s. Continue to monitor respiratory status. Cardiovascular: Patient remains tachycardic but has shown some improvement with digoxin. Cardiology consult, Dr. Ledezma contribution appreciated. Heme: CBC within normal limits. No signs of platelet dysfunction. Plan: DVT prophylaxis: Lovenox 80 mg subcu every 12. Renal: Renal panel was normal today. I will reduce maintenance fluids to 100 mL/h. Gastrointestinal: Patient has a history of dysphagia secondary to dementia. We will ask GI to evaluate further prior to discharge. Plan: Diet: Patient remains n.p.o. He has a history of esophageal issues which need to be further evaluated. 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 I am reaching out to GI today for evaluation. ID: No signs of infection or leukocytosis at this time. No antibiotic needs. Barriers to discharge from ICU: Patient with persistent tachycardia now requiring digoxin. We will reevaluate for transfer from ICU once tachycardia better controlled. Reason for ICU Addmission:: Rapid afib, dysphagia, IV amiodarone, IVC - Medications: Medications reviewed and adjusted accordingly: Yes Physical Exam Vital Signs: Temp Pulse Resp BP Pulse Ox 97.8 F 115 H 16 115/82 82 L 08/08/20 14:00 08/08/20 08:00 08/08/20 14:01 08/08/20 14:01 08/08/20 13:01 Intake & Output 08/07/20 08/08/20 08/09/20 06:59 06:59 06:59 Intake Total 1748 3378 1000 Output Total 800 600 Balance 948 2778 1000 Weight 78.7 kg 81.3 kg Weight/Height Weight 81.3 kg Height 5 ft 10 in General appearance: PRESENT: no acute distress Head exam: PRESENT: atraumatic, normocephalic Eye exam: PRESENT: EOMI, PERRLA Neck exam: PRESENT: full ROM. ABSENT: JVD Respiratory exam: PRESENT: clear to auscultation madi, unlabored. ABSENT: accessory muscle use, rhonchi, wheezes Cardiovascular exam: PRESENT: irregular rhythm, tachycardia Vascular exam: PRESENT: normal capillary refill GI/Abdominal exam: PRESENT: normal bowel sounds, soft Extremities exam: PRESENT: full ROM. ABSENT: pedal edema Musculoskeletal exam: PRESENT: ambulatory Neurological exam: PRESENT: alert, awake, oriented to person, oriented to place, CN II-XII grossly intact Psychiatric exam: PRESENT: other - Fused at times Skin exam: PRESENT: intact, normal color Laboratory/Radiographs Laboratory Results: 08/07/20 20:14 08/07/20 20:14 08/07/20 08/07/20 20:14 20:14 WBC 7.2 RBC 3.48 L Hgb 14.4 Hct 42.4 MCV 122 H MCH 41.4 H MCHC 34.1 RDW 17.4 H Plt Count 146 L Seg Neutrophils % 80.2 H Sodium 134.8 L Potassium 3.8 Chloride 100 Carbon Dioxide 25 Anion Gap 10 BUN 18 Creatinine 0.51 L Est GFR ( Amer) > 60 Glucose 98 Calcium 8.9 Magnesium 2.0 Total Bilirubin 3.8 H AST 67 H Alkaline Phosphatase 125 Total Protein 6.1 L Albumin 3.1 L 08/05/20 08/05/20 08/05/20 11:09 11:09 14:05 Creatine Kinase 40 L Troponin I 0.043 0.039 NT-Pro-B Natriuret Pep 08/05/20 14:05 Creatine Kinase Troponin I NT-Pro-B Natriuret Pep 3680 H Impressions: Chest X-Ray 08/05/20 12:52 IMPRESSION: New small left effusion. Moderate cardiomegaly. All labs, radiographs, diagnostic studies and EKGs were personally reviewed: Yes In addition, reports of radiographic and diagnostic studies were read: Yes Assessment and Plan - Diagnosis (1) Atrial fibrillation with rapid ventricular response Is this a current diagnosis for this admission?: Yes Plan: Jw seems to have had some effect as patient's tachycardia is not quite as extreme. Still reaching heart rates in the 120s. Continue to follow closely with cardiology. (2) Dysphagia Qualifiers: Dysphagia type: esophageal phase Qualified Code(s): R13.10 - Dysphagia, unspecified Is this a current diagnosis for this admission?: Yes Plan: Patient has a history of lower esophageal discomfort. He also has an extensive drinking history. We are reaching out to GI for evaluation and possible endoscopy. Critical Time Critical Time (minutes): 55 Level of Care: ICU Anticipated discharge: Home Anticipated DC Timeframe: within 48 hours -: 1. The care of a critical patient is a dynamic process. This note is a sales representative door to door synopsis but static in nature. The timeframe for treatments given in order is not necessarily the actual time these treatments may have been done. 2. This patient requires critical care secondary to ongoing requirements for therapy not offered or safe outside the critical care environment. Transfer to a lower level of care will result in altered life or limb morbidity and mortality. 3. Multidisciplinary rounds completed. 4. ABCDE bundle addressed.
--- NOTE | 2020-08-08 19:22 | PSYCHOLOGICAL NOTE ---
Psych Note - Psych Note Date seen by psych provider: 08/08/20 Psych Note: A chart review for patient was conducted at 1300. Patient has a history of dementia as well as multiple medical diagnoses. Patient has been non-compliant with his medications and while in the ED has been pulling out his IV. Patient has a history of leaving his doctors AMA. He was put under IVC on 08/05/2020. Reports indicate he has been drinking alcohol, however has not been in the past two weeks. Patient lives with his , Alexandra, but his son, Raudel, is trying to obtain guardianship over patient. Family is also looking into an curtain framer. [facility] for medical concerns, primarily cardiac related. No mental health history is documented. It does not appear patient has been medically cleared as recent notes report he remains tachycardic, however is improving. Patient remains under IVC and remains in the ICU for medical treatment. Today, Neuro reports: At baseline, patient has dementia. No significant changes in mental status. He remains confused. Son, Raudel, , Alexandra,
[2020-08-08] MEDS ORDERED: DIPHENHYDRAMINE HCL 50 MG/ML VIAL IV PRN (23:11)
[2020-08-09] MEDS: METOPROLOL TARTRATE PF/INJ 5 MG/5 ML SDV IV SCH ×8 (00:13→22:58)
[2020-08-09] MEDS: RINGERS SOLUTION,LACTATED 1,000 ML IV PRN ×2 (02:28→11:48)
[2020-08-09] MEDS: ENOXAPARIN SODIUM INJ 80 MG/0.8 ML DISP.SYRIN SUBCUT SCH ×2 (05:17→18:00)
[2020-08-09] MEDS: TRIAMCINOLONE ACETONIDE 0.5% CREAM 15 GM TP SCH ×2 (11:34→18:01)
[2020-08-09] MEDS: DIGOXIN INJ 0.5 MG/2 ML AMPULE IV SCH (11:49)
--- NOTE | 2020-08-09 12:05 | PDOC PROGRESS REPORT ---
Subjective Date:: 08/09/20 Subjective:: Patient was seen and examined. He sitting in the chair comfortable. Family at bedside. No complaints whatsoever. Continues to minute fibrillation with a ventricular rate anywhere from 110 bpm 225 bpm. Is tolerating the arrhythmia without any symptoms. He is normotensive. Reason For Visit: UNCONTROLLED RAPID ATRIAL FIBRILLATION,DYSPHAGIA Physical Exam Vital Signs: Temp Pulse Resp BP Pulse Ox 99.0 F 137 H 22 H 117/90 H 89 L 08/09/20 08:00 08/09/20 10:49 08/09/20 10:49 08/09/20 10:49 08/09/20 10:49 Intake & Output 08/08/20 08/09/20 08/10/20 06:59 06:59 06:59 Intake Total 3378 2773 Output Total 600 250 200 Balance 2778 2523 -200 Weight 81.3 kg 85.5 kg General appearance: PRESENT: no acute distress, cooperative, well-developed, well-nourished Head exam: PRESENT: atraumatic, normocephalic Eye exam: PRESENT: conjunctiva pink, EOMI Respiratory exam: PRESENT: symmetrical, unlabored Cardiovascular exam: PRESENT: irregular rhythm, +S1, +S2 Pulses: PRESENT: normal radial pulses GI/Abdominal exam: PRESENT: soft Rectal exam: PRESENT: deferred Neurological exam: PRESENT: alert, awake, oriented to person, oriented to place, oriented to time Psychiatric exam: PRESENT: appropriate affect Skin exam: PRESENT: dry, intact Results Laboratory Results: 08/07/20 20:14 08/07/20 20:14 08/05/20 08/05/20 08/05/20 11:09 11:09 14:05 Creatine Kinase 40 L Troponin I 0.043 0.039 NT-Pro-B Natriuret Pep 08/05/20 14:05 Creatine Kinase Troponin I NT-Pro-B Natriuret Pep 3680 H Impressions: Chest X-Ray 08/05/20 12:52 IMPRESSION: New small left effusion. Moderate cardiomegaly. Assessment & Plan - Diagnosis (1) Cardiomyopathy Qualifiers: Cardiomyopathy type: unspecified Qualified Code(s): I42.9 - Cardiomyopathy, unspecified Is this a current diagnosis for this admission?: Yes Plan: Dilated cardiomyopathy. Etiology has not been established. Appears to be euvolemic. Watch volume status. Therapy limited significantly on account of ongoing issues including dementia and ability to tolerate oral intake. (2) Atrial fibrillation with rapid ventricular response Is this a current diagnosis for this admission?: Yes Plan: Atrial fibrillation rapid ventricular response Patient has only been on beta-jaleel intravenously. Continue digoxin load followed by intravenous maintenance Hopefully he can be switched over to oral maintenance with beta-blockers and oral digoxin. I am a bit hesitant to recommend intravenous calcium channel blockers given LV dysfunction. His overall management strategy is quite complicated on account of inability to administer oral drugs. This is due to dysphagia. Liquid preparations may help Continue enoxaparin for stroke prophylaxis Digoxin to 50 mcg a day being used. Please check digoxin level
--- NOTE | 2020-08-09 15:16 | RADIOLOGY REPORT (SQ) ---
EXAM DESCRIPTION: BARIUM SWALLOW ESOPHAGUS IMAGES COMPLETED DATE/TIME: 08/09/2020 2:07 pm REASON FOR STUDY: Dysphagia COMPARISON: None. TECHNIQUE: Under fluoroscopic guidance, patient ingested effervescent granules followed by thick and thin barium. Fluoroscopic spot images and routine radiographic images acquired and stored on PACS. 12 MM BARIUM TABLET GIVEN: Yes. No significant delay in passage. LIMITATIONS: None. FLUOROSCOPY TIME: FLUORO TIME: 1.8 minutes of fluoroscopy was used. 12th images saved to PACS. FINDINGS: NEUROMUSCULAR COORDINATION OF SWALLOW: Normal. No aspiration. Moderate cricopharyngeal hy pertrophy. ESOPHAGEAL MOTILITY: Slow primary peristalsis with tertiary contractions seen in the distal half esop hagus. No esophageal spasm. ESOPHAGEAL MUCOSA: Normal mucosa without masses or ulceration. There is impression upon the distal e sophagus from the large heart. No ulcerations or masses seen. GASTRO-ESOPHAGEAL JUNCTION: No hiatal hernia. Moderate free-flowing gastroesophageal reflux noted. Surgical clips are seen around the GE junction in the antrum of the stomach, questionable vagotomy. Patient has no recollection of surgery in this area. 12 mm barium NON-GI TRACT STRUCTURES: No significant finding. OTHER: No other significant finding. IMPRESSION: 1. ESOPHAGEAL DYSMOTILITY. 2. MODERATE FREE-FLOWING GASTROESOPHAGEAL REFLUX. 3. THERE IS IMPRESSION UPON THE DISTAL ESOPHAGUS FROM LARGE HEART ALTHOUGH THIS DOES NOT INHIBIT PAS MARIYA OF CONTRAST OR THE TABLET THROUGH THE ESOPHAGUS. COMMENT: Quality ID [id number]: Final reports for procedures using fluoroscopy that document radiation exp osure indices, or exposure time and number of fluorographic images (if radiation exposure indices are not available) TECHNICAL DOCUMENTATION: JOB ID: [id number] 2010 [employer]- All Rights Reserved Reading location - IP/workstation name: [email or web address] [id number]
[2020-08-09] MEDS ORDERED: LIDOCAINE 2% VISCOUS SOLN 15 ML UDCUP PO PRN (18:33)
[2020-08-09] MEDS ORDERED: LIDOCAINE 2% VISCOUS SOLN 15 ML UDCUP PO ONE (20:30)
[2020-08-09] MEDS ORDERED: MAG HYDROX/AL HYDROX/SIMETH SUSP 30 ML UDCUP PO ONE (20:30)
[2020-08-09] MEDS ORDERED: METOCLOPRAMIDE HCL ORAL SOLN 10 MG/10 ML UDCUP PO ONE (20:30)
[2020-08-10] MEDS: METOPROLOL TARTRATE PF/INJ 5 MG/5 ML SDV IV SCH ×4 (01:00→10:27)
[2020-08-10] MEDS: ENOXAPARIN SODIUM INJ 80 MG/0.8 ML DISP.SYRIN SUBCUT SCH ×2 (07:35→17:22)
--- NOTE | 2020-08-10 09:56 | PDOC CONSULTATION ---
Consultation-Blank Consultation: Reason for Consult: Evaluation for IVC Consent Permissions: Patient's son at bedside per patient's request Evaluation conducted 08/05/2020 at 1745 Patient arrived to [facility] ED via POV for medical concerns. After clinician introduces self, patient immediately reports he is unable to engage in evaluation and asked clinician to "come back at a later time." Patient is currently being monitored for concerns of his heart. Clinician spoke with patient's son who reports significant concern that the patient is noncompliant and has left AGAINST MEDICAL ADVICE every time he has brought the patient to be evaluated medically. He discloses the patient has been demonstrating increased difficulty with dementia symptoms. He confirms the patient currently does live alone and has his own legal guardian however this is something the family has been discussing on how to proceed moving forward due to the patient's noncompliance. Clinician discussed patient's case with both attending ED physician and ICU telephone coin box collector. Both confirm patient needs immediate medical intervention/treatment and without there is a significant probability of debilitation and/or . Patient has demonstrated previously his inability to discuss/comprehend the complexity of his medical condition. There is significant concern that the patient can ambulate and has previously refused and pulled out IVs and medications. IVC Criteria per [place] GS 122C Dangerous to others Within the relevant past the individual No has inflicted or attempted to inflict or threatened to inflict serious bodily harm on another AND No that there is a reasonable probability that this conduct will be repeated. OR No has acted in such a way as to create a substantial risk of serious bodily harm to another AND No that there is a reasonable probability that this conduct will be repeated. OR No has engaged in extreme destruction of property AND NO that there is a reasonable probability that this conduct will be repeated. Previous episodes of dangerousness to others, when applicable, may be considered when determining reasonable probability of future dangerous conduct. Clear, cogent, and convincing evidence that an individual has committed a homicide in the relevant past is prima facie evidence of dangerousness to others. Dangerous to self Within the relevant past the individual has done any of the following: acted in such a way as to show ALL of the following: YES The individual would be unable without care, supervision, and the continued assistance of others not otherwise available, to exercise self- control, judgment, and discretion in the conduct of the individual's daily responsibilities and social relations or to satisfy the individual's need for nourishment, personal or medical care, jail, or self-protection and safety. AND YES There is a reasonable probability of the individual suffering serious physical debilitation within the near future unless adequate treatment is given. A showing of behavior that is grossly irrational, of actions that the individual is unable to control, of behavior that is grossly inappropriate to the situation, or of other evidence of severely impaired insight and judgment shall create a prima facie inference that the individual is unable to care for himself or herself. Patient has dementia; however, he is currently he own legal guardian. He has demonstrated the inability to make medical decisions to keep himself safe such as leaving AGAINST MEDICAL ADVICE on multiple occasions. Patient has open sores, a chronic rash, is noncompliant with medications and is A. fib with RVR. Patient does demonstrate impulsivity and there is a reasonable probability that he will suffer serious physical debilitation within the near future unless he receives adequate treatment. OR No has attempted suicide or threatened suicide AND No that there is a reasonable probability of suicide unless adequate treatment is given OR No has mutilated himself or herself or attempted to mutilate himself or herself AND No that there is a reasonable probability of serious self-mutilation unless adequate treatment is given. NOTE: Previous episodes of dangerousness to self, when applicable, may be considered when determining reasonable probability of physical debilitation, suicide, or self-mutilation. Impression\\plan: Patient is recommended for IVC; paperwork is filled out, sign ed, faxed to [employer] and placed in patient's chart. The patient has dementia and for all intents's purposes lives alone. Patient does have a spouse however she also reportedly has dementia and does not stay in the home with him at all times. Patient is home alone at night. The patient has demonstrated the inability to make medical decisions to keep himself safe as demonstrated by his frequent leaving AGAINST MEDICAL ADVICE on multiple occasions within the last few months. The patient has open sores and chronic rash, is noncompliant with his medications and is currently A. fib with RVR. He is impulsive and able to ambulate. There is a reasonable probability he will suffer serious physical debilitation within the near future unless receives adequate treatment. He does not have the care and supervision at home to ensure self-control, judgment and discretion to satisfy his personal or medical care. He is currently a danger to himself. Patient has been medically admitted into ICU. Dr. Galicia was consulted to care management of this patient; attending physicians in agreement with recommendations and disposition.
[2020-08-10] MEDS ORDERED: MULTIVITS (INFANT) W-IRON & FLUORIDE (0.25 MG/ML) DROPS PO SCH (10:00)
[2020-08-10] MEDS ORDERED: METOPROLOL SUCCINATE 50 MG TAB.SR.24H PO SCH (10:00)
[2020-08-10] MEDS: DIGOXIN INJ 0.5 MG/2 ML AMPULE IV SCH (10:33)
[2020-08-10] MEDS: TRIAMCINOLONE ACETONIDE 0.5% CREAM 15 GM TP SCH ×2 (10:34→17:21)
[2020-08-10] MEDS: PANTOPRAZOLE SODIUM 40 MG VIAL IV SCH ×2 (10:34→22:29)
[2020-08-10] MEDS: METOPROLOL TARTRATE 50 MG TABLET PO SCH ×2 (10:34→22:28)
[2020-08-10] MEDS ORDERED: METOPROLOL TARTRATE PF/INJ 5 MG/5 ML SDV IV PRN ×2 (11:00→11:57)
--- NOTE | 2020-08-10 11:34 | PDOC PROGRESS REPORT ---
Subjective Date:: 08/10/20 Subjective:: Patient seen and examined. Resting comfortably. Reason For Visit: UNCONTROLLED RAPID ATRIAL FIBRILLATION,DYSPHAGIA Physical Exam Vital Signs: Temp Pulse Resp BP Pulse Ox 98.8 F 142 H 20 114/88 H 90 L 08/10/20 10:00 08/10/20 04:21 08/10/20 04:21 08/10/20 04:21 08/10/20 04:21 Intake & Output 08/09/20 08/10/20 08/11/20 06:59 06:59 06:59 Intake Total 2773 1000 1000 Output Total 250 600 Balance 2523 400 1000 Weight 85.5 kg 85.3 kg General appearance: PRESENT: no acute distress, cooperative, well-developed, well-nourished Head exam: PRESENT: atraumatic, normocephalic Eye exam: PRESENT: conjunctiva pink, EOMI Mouth exam: PRESENT: moist Respiratory exam: PRESENT: clear to auscultation madi, decreased breath sounds, symmetrical Cardiovascular exam: PRESENT: irregular rhythm, +S1, +S2 Pulses: PRESENT: normal radial pulses GI/Abdominal exam: PRESENT: soft Rectal exam: PRESENT: deferred Neurological exam: PRESENT: alert, awake Psychiatric exam: PRESENT: appropriate affect Skin exam: PRESENT: dry, intact Results Laboratory Results: 08/07/20 20:14 08/07/20 20:14 08/05/20 08/05/20 08/05/20 11:09 11:09 14:05 Creatine Kinase 40 L Troponin I 0.043 0.039 NT-Pro-B Natriuret Pep 08/05/20 14:05 Creatine Kinase Troponin I NT-Pro-B Natriuret Pep 3680 H Impressions: Chest X-Ray 08/05/20 12:52 IMPRESSION: New small left effusion. Moderate cardiomegaly. Esophagus X-Ray 08/09/20 00:00 IMPRESSION: 1. ESOPHAGEAL DYSMOTILITY. 2. MODERATE FREE-FLOWING GASTROESOPHAGEAL REFLUX. 3. THERE IS IMPRESSION UPON THE DISTAL ESOPHAGUS FROM LARGE HEART ALTHOUGH THIS DOES NOT INHIBIT PASSAGE OF CONTRAST OR THE TABLET THROUGH THE ESOPHAGUS. Assessment & Plan - Diagnosis (1) Cardiomyopathy Qualifiers: Cardiomyopathy type: unspecified Qualified Code(s): I42.9 - Cardiomyopathy, unspecified Is this a current diagnosis for this admission?: Yes Plan: Dilated cardiomyopathy. Etiology has not been established. Appears to be euvolemic. Watch volume status. Therapy limited significantly on account of ongoing issues including dementia and ability to tolerate oral intake. (2) Atrial fibrillation with rapid ventricular response Is this a current diagnosis for this admission?: Yes Plan: Atrial fibrillation rapid ventricular response Oral and IV Beta jaleel Switch to oral Digoxin 125 mcg PO Q day maintenance Continue enoxaparin for stroke prophylaxis Switch to oral Apixaban 5 mg PO BID Please check digoxin level
[2020-08-10] MEDS: METOCLOPRAMIDE HCL ORAL SOLN 10 MG/10 ML UDCUP PO PRN (11:49)
[2020-08-10] MEDS: MULTIVITAMIN ORAL LIQUID 60 ML PO SCH (11:49)
[2020-08-10] MEDS: MAG HYDROX/AL HYDROX/SIMETH SUSP 30 ML UDCUP PO PRN (11:50)
--- NOTE | 2020-08-10 16:57 | PDOC PROGRESS REPORT ---
Subjective Date:: 08/10/20 Subjective:: Art Lance 85-year-old male with past medical history of A. fib RVR, dysphagia, dementia, chronic EtOH abuse, GERD, who was unfortunately been frequently admitted to ED but have left AMA each time, patient was brought to ED for family complaining of several weeks of dysphagia and decreased p.o. 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 fib RVR and was sent to ED. Since patient could not take p.o. pills he was a started on IV metoprolol digoxin which did not help, patient was admitted to ICU and was a started on amiodarone drip, cardiology was consulted, barium swallow was also obtained which did not show any aspiration however moderate cricopharyngeal hypertrophy, esophageal dysmotility, moderate free-flowing gastroesophageal reflux no masses was noted. 08/10/2020. No acute events overnight. Patient has been able to take p.o. pills, and has been tolerating some food without sign of aspiration, patient has been given a GI cocktail to make it easy for her to tolerate his food, has not had any nausea or vomiting, denies any fever, chills, nausea, vomiting, diarrhea, constipation or any urinary symptoms. Reason For Visit: UNCONTROLLED RAPID ATRIAL FIBRILLATION,DYSPHAGIA Physical Exam Vital Signs: Temp Pulse Resp BP Pulse Ox 97.3 F 97 18 137/78 H 96 08/10/20 11:11 08/10/20 14:00 08/10/20 11:11 08/10/20 11:11 08/10/20 11:11 Intake & Output 08/09/20 08/10/20 08/11/20 06:59 06:59 06:59 Intake Total 2773 1000 1000 Output Total 250 600 Balance 2523 400 1000 Weight 85.5 kg 85.3 kg General appearance: PRESENT: no acute distress, well-developed, well-nourished Head exam: PRESENT: atraumatic, normocephalic Respiratory exam: PRESENT: clear to auscultation madi. ABSENT: rales, rhonchi, wheezes Cardiovascular exam: PRESENT: irregular rhythm. ABSENT: diastolic murmur, rubs, systolic murmur GI/Abdominal exam: PRESENT: normal bowel sounds, soft. ABSENT: distended, guarding, mass, organolmegaly, rebound, tenderness Neurological exam: PRESENT: alert, awake, oriented to person, oriented to place, CN II-XII grossly intact. ABSENT: motor sensory deficit Skin exam: PRESENT: rash - Nonvesicular diffuse rash on his trunk and bilateral upper extremities. Results Laboratory Results: 08/07/20 20:14 08/07/20 20:14 08/05/20 08/05/20 08/05/20 11:09 11:09 14:05 Creatine Kinase 40 L Troponin I 0.043 0.039 NT-Pro-B Natriuret Pep 08/05/20 14:05 Creatine Kinase Troponin I NT-Pro-B Natriuret Pep 3680 H Impressions: Chest X-Ray 08/05/20 12:52 IMPRESSION: New small left effusion. Moderate cardiomegaly. Esophagus X-Ray 08/09/20 00:00 IMPRESSION: 1. ESOPHAGEAL DYSMOTILITY. 2. MODERATE FREE-FLOWING GASTROESOPHAGEAL REFLUX. 3. THERE IS IMPRESSION UPON THE DISTAL ESOPHAGUS FROM LARGE HEART ALTHOUGH THIS DOES NOT INHIBIT PASSAGE OF CONTRAST OR THE TABLET THROUGH THE ESOPHAGUS. Assessment and Plan - Diagnosis (1) Dysphagia Qualifiers: Dysphagia type: esophageal phase Qualified Code(s): R13.10 - Dysphagia, unspecified Is this a current diagnosis for this admission?: Yes Plan: Chronic history of dysphagia to solids and liquids. History of chronic heavy EtOH abuse status post hiatal hernia repair in the . 08/09/2020 barium swallow positive for moderate cricopharyngeal hypertrophy, esophageal dysmotility, moderate free-flowing gastroesophageal reflux no masses was noted. Patient able to tolerate some p.o. intake and p.o. medications if given with GI cocktail before eating. Continue PPI IV, continue GI cocktail, continue full liquid diet close m onitoring for aspiration. Registered dietitian consult. Patient will need an EGD but unfortunately GI consult not available until Wednesday. GI has been consulted. We will have n.p.o. Wednesday night in anticipation of upper GI endoscopy by gastroenterology. (2) Cardiomyopathy Qualifiers: Cardiomyopathy type: unspecified Qualified Code(s): I42.9 - Cardiomyopathy, unspecified Is this a current diagnosis for this admission?: Yes Plan: History of cardiomyopathy likely EtOH related. Cardiology on board. Recommendations noted. (3) Dementia Qualifiers: Dementia type: unspecified type Is this a current diagnosis for this admission?: Yes Plan: Supportive measures. Not sure if alcohol or vitamin B-12 deficiency contributing to his dementia. We will obtain B12, folic acid and TSH level. (4) Pruritic rash Is this a current diagnosis for this admission?: Yes Plan: Patient has nonvesicular pruritic rash on his anterior trunk and bilateral upper extremities. Unfortunately no dermatology consult available. Continue topical steroids. Continue wound care. Outpatient PCP and dermatology follow-up. (5) Alcohol dependence Qualifiers: Complication of substance-induced condition: uncomplicated Is this a current diagnosis for this admission?: Yes Plan: History of chronic heavy alcohol abuse. Last alcohol intake 2 weeks ago. Does not appear to be in any acute withdrawal. Continue folic acid, thiamine, multivitamins, DT precautions. (6) Atrial fibrillation with rapid ventricular response Is this a current diagnosis for this admission?: Yes Plan: Rate controlled. Anticoagulated with Lovenox. Off of amiodarone. Not very responsive to IV digoxin or IV metoprolol. Good response with p.o. metoprolol. Not a candidate for Cardizem drip due to underlying cardiomyopathy as per cardiology note. Continue p.o. metoprolol, p.o. digoxin, as needed IV hydralazine and digoxin. Cardiology following. Recommendations noted. (7) Thrombocytopenia Is this a current diagnosis for this admission?: Yes Plan: Most likely due to underlying liver cirrhosis due to chronic EtOH abuse. Monitor for bleeding. Daily CBC. - Time Time Spent with patient: 25-34 minutes Medications reviewed and adjusted accordingly: Yes Anticipated Discharge Disposition: Home with Home Health Anticipated Discharge Timeframe: within 72 hours
[2020-08-10 17:37] LABS: FREE T4 (FREE THYROXINE) 1.72 ng/dL (0.78-2.19)
[2020-08-10 17:51] LABS: THYROID STIMULATING HORMONE 3.99 uIU/mL (0.47-4.68)
[2020-08-11] MEDS: ENOXAPARIN SODIUM INJ 80 MG/0.8 ML DISP.SYRIN SUBCUT SCH ×2 (05:13→17:07)
[2020-08-11 07:10] LABS: HEMATOCRIT 35.7 % (37.9-51.0); HEMOGLOBIN 12.2 g/dL (13.5-17.0); MEAN CORPUSCULAR HEMOGLOBIN 41.3 pg (27.0-33.4); MEAN CORPUSCULAR HGB CONC 34.3 g/dL (32.0-36.0); MEAN CORPUSCULAR VOLUME 121 fl (80-97); PLATELET COUNT 150 10^3/uL (150-450); RED BLOOD COUNT 2.96 10^6/uL (4.35-5.55); RED CELL DISTRIBUTION WIDTH 15.4 % (11.5-14.0); WHITE BLOOD COUNT 4.1 10^3/uL (4.0-10.5)
[2020-08-11 07:26] LABS: ALBUMIN 2.4 g/dL (3.5-5.0); ALKALINE PHOSPHATASE 99 U/L (38-126); ANION GAP 6 (5-19); ASPARTATE AMINO TRANSFERASE 53 U/L (17-59); BILIRUBIN,DIRECT 1.4 mg/dL (0.0-0.4); BILIRUBIN,TOTAL 2.5 mg/dL (0.2-1.3); BLOOD UREA NITROGEN 14 mg/dL (7-20); CALCIUM 8.3 mg/dL (8.4-10.2); CARBON DIOXIDE 29 mmol/L (22-30); CHLORIDE 100 mmol/L (98-107); GLUCOSE 93 mg/dL (75-110); POTASSIUM 3.3 mmol/L (3.6-5.0); TOTAL PROTEIN 4.9 g/dL (6.3-8.2)
[2020-08-11] MEDS ORDERED: POTASSI CL 20 MEQ/50 ML RIDER 20 MEQ/50 ML RTUPB IV ONE (07:46)
--- NOTE | 2020-08-11 09:11 | RADIOLOGY REPORT (SQ) ---
EXAM DESCRIPTION: U/S ABDOMEN LTD W/DOPPLER IMAGES COMPLETED DATE/TIME: 08/11/2020 7:55 am REASON FOR STUDY: Rule out hepatic cirrhosis COMPARISON: None. TECHNIQUE: Dynamic and static grayscale images acquired of the abdomen and recorded on PACS. Additio nal selected color Doppler and spectral images recorded. LIMITATIONS: Midline bowel gas FINDINGS: PANCREAS: Not visualized due to midline bowel gas LIVER: Nodular contour from cirrhosis. Increased echogenicity of the liver parenchyma a from hepatoc ellular disease. No discrete masses. LIVER VASCULATURE: Normal directional flow of the main portal vein and hepatic veins. GALLBLADDER: Gallstones. No pericholecystic fluid. No wall thickening. ULTRASOUND-DETECTED TAMAYO'S SIGN: Negative. INTRAHEPATIC DUCTS AND COMMON DUCT: CBD and intrahepatic ducts normal caliber. No filling defects. D istal most common duct not well to duodenum gas INFERIOR VENA CAVA: Normal flow. AORTA: Not well seen to midline bowel gas RIGHT KIDNEY: Normal size. Normal echogenicity. No solid or suspicious masses. No hydronephrosis. No calcifications. PERITONEAL AND RIGHT PLEURAL SPACE: Small amount of right upper quadrant subphrenic fluid. Small mod erate right pleural effusion OTHER: No other significant findings. IMPRESSION: Nodular contour of the liver from cirrhosis Trace right upper quadrant free fluid Small to moderate right pleural effusion Gallstones TECHNICAL DOCUMENTATION: JOB ID: [id number] [employer]- All Rights Reserved Reading location - IP/workstation name: [id number]
[2020-08-11] MEDS: METOPROLOL SUCCINATE 50 MG TAB.SR.24H PO SCH ×2 (09:15→22:37)
[2020-08-11] MEDS: DIGOXIN 0.25 MG TABLET PO SCH (09:15)
[2020-08-11] MEDS: TRIAMCINOLONE ACETONIDE 0.5% CREAM 15 GM TP SCH ×2 (09:16→17:07)
[2020-08-11] MEDS: PANTOPRAZOLE SODIUM 40 MG VIAL IV SCH ×2 (09:16→22:35)
[2020-08-11] MEDS: MULTIVITAMIN ORAL LIQUID 60 ML PO SCH (10:16)
[2020-08-11] MEDS: DEXTROSE 5%-NORMAL SALINE 1,000 ML IV PRN (14:44)
--- NOTE | 2020-08-11 18:20 | PDOC PROGRESS REPORT ---
Subjective Date:: 08/11/20 Subjective:: Art Lance 85-year-old male with past medical history of A. fib RVR, dysphagia, dementia, chronic EtOH abuse, GERD, who was unfortunately been frequently admitted to ED but have left AMA each time, patient was brought to ED for family complaining of several weeks of dysphagia and decreased p.o. 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 fib RVR and was sent to ED. Since patient could not take p.o. pills he was a started on IV metoprolol digoxin which did not help, patient was admitted to ICU and was a started on amiodarone drip, cardiology was consulted, barium swallow was also obtained which did not show any aspiration however moderate cricopharyngeal hypertrophy, esophageal dysmotility, moderate free-flowing gastroesophageal reflux no masses was noted. 08/10/2020. No acute events overnight. Patient has been able to take p.o. pills, and has been tolerating some food without sign of aspiration, patient has been given a GI cocktail to make it easy for her to tolerate his food, has not had any nausea or vomiting, denies any fever, chills, nausea, vomiting, diarrhea, constipation or any urinary symptoms. 08/11/2020. No acute events overnight. Patient is tolerating some food and his p.o. medication, denies any fever, chills, nausea, vomiting, diarrhea, constipation or any urinary symptoms. Reason For Visit: UNCONTROLLED RAPID ATRIAL FIBRILLATION,DYSPHAGIA Physical Exam Vital Signs: Temp Pulse Resp BP Pulse Ox 98.2 F 64 18 140/86 H 90 L 08/11/20 15:55 08/11/20 15:55 08/11/20 15:55 08/11/20 15:55 08/11/20 15:55 Intake & Output 08/10/20 08/11/20 08/12/20 06:59 06:59 06:59 Intake Total 1000 1618 595 Output Total 434 878 9180 Balance 400 1118 -430 Weight 85.3 kg 85.9 kg General appearance: PRESENT: no acute distress, well-developed, well-nourished, other - Jaundiced, bitemporal wasting. Head exam: PRESENT: atraumatic, normocephalic Eye exam: PRESENT: scleral icterus Neck exam: ABSENT: carotid bruit, JVD, lymphadenopathy, thyromegaly Respiratory exam: PRESENT: clear to auscultation madi. ABSENT: rales, rhonchi, wheezes Cardiovascular exam: PRESENT: RRR. ABSENT: diastolic murmur, rubs, systolic murmur GI/Abdominal exam: PRESENT: normal bowel sounds, soft. ABSENT: distended, guarding, mass, organolmegaly, rebound, tenderness Neurological exam: PRESENT: alert, awake, oriented to person, oriented to place, CN II-XII grossly intact. ABSENT: motor sensory deficit Skin exam: PRESENT: rash Results Laboratory Results: 08/11/20 06:19 08/11/20 06:19 08/10/20 08/11/20 08/11/20 08:40 06:19 06:19 WBC 4.1 RBC 2.96 L Hgb 12.2 L Hct 35.7 L MCV 121 H MCH 41.3 H MCHC 34.3 RDW 15.4 H Plt Count 150 Sodium 134.8 L Potassium 3.3 L Chloride 100 Carbon Dioxide 29 Anion Gap 6 BUN 14 Creatinine 0.44 L Est GFR ( Amer) > 60 Glucose 93 Calcium 8.3 L Total Bilirubin 2.5 H AST 53 Alkaline Phosphatase 99 Total Protein 4.9 L Albumin 2.4 L Vitamin B12 > 1000.0 H Folate 17.10 08/05/20 08/05/20 08/05/20 11:09 11:09 14:05 Creatine Kinase 40 L Troponin I 0.043 0.039 NT-Pro-B Natriuret Pep 08/05/20 14:05 Creatine Kinase Troponin I NT-Pro-B Natriuret Pep 3680 H Impressions: Chest X-Ray 08/05/20 12:52 IMPRESSION: New small left effusion. Moderate cardiomegaly. Esophagus X-Ray 08/09/20 00:00 IMPRESSION: 1. ESOPHAGEAL DYSMOTILITY. 2. MODERATE FREE-FLOWING GASTROESOPHAGEAL REFLUX. 3. THERE IS IMPRESSION UPON THE DISTAL ESOPHAGUS FROM LARGE HEART ALTHOUGH THIS DOES NOT INHIBIT PASSAGE OF CONTRAST OR THE TABLET THROUGH THE ESOPHAGUS. Abdomen Ultrasound 08/10/20 17:00 IMPRESSION: Nodular contour of the liver from cirrhosis Trace right upper quadrant free fluid Small to moderate right pleural effusion Gallstones Assessment and Plan - Diagnosis (1) Dysphagia Qualifiers: Dysphagia type: esophageal phase Qualified Code(s): R13.10 - Dysphagia, unspecified Is this a current diagnosis for this admission?: Yes Plan: Chronic history of dysphagia to solids and liquids. History of chronic heavy EtOH abuse status post hiatal hernia repair in the 90. 08/09/2020 barium swallow positive for moderate cricopharyngeal hypertrophy, esophageal dysmotility, moderate free-flowing gastroesophageal reflux no masses was noted. Patient able to tolerate some p.o. intake and p.o. medications if given with GI cocktail before eating. Continue PPI IV, continue GI cocktail, continue full liquid diet close monit oring for aspiration. Registered dietitian consult. Patient will need an EGD but unfortunately GI consult not available until Wednesday. GI has been consulted. We will have n.p.o. Wednesday night in anticipation of upper GI endoscopy by gastroenterology. (2) Cardiomyopathy Qualifiers: Cardiomyopathy type: unspecified Qualified Code(s): I42.9 - Cardiomyopathy, unspecified Is this a current diagnosis for this admission?: Yes Plan: History of cardiomyopathy likely EtOH related. Cardiology on board. Recommendations noted. (3) Dementia Qualifiers: Dementia type: unspecified type Is this a current diagnosis for this admission?: Yes Plan: Supportive measures. Not sure if alcohol or vitamin B-12 deficiency contributing to his dementia. We will obtain B12, folic acid and TSH level. (4) Pruritic rash Is this a current diagnosis for this admission?: Yes Plan: Patient has nonvesicular pruritic rash on his anterior trunk and bilateral upper extremities. As per son it was because due to excessive picking and itching his skin due to itching most likely caused by his lying liver failure. Significant improvement since admission. No sign of infection. Continue wound care, topical antihistamine, p.o. cholestyramine. (5) Alcohol dependence Qualifiers: Complication of substance-induced condition: uncomplicated Is this a current diagnosis for this admission?: Yes Plan: History of chronic heavy alcohol abuse. Last alcohol intake 2 weeks ago. Does not appear to be in any acute withdrawal. Continue folic acid, thiamine, multivitamins, DT precautions. (6) Atrial fibrillation with rapid ventricular response Is this a current diagnosis for this admission?: Yes Plan: Rate controlled. Anticoagulated with Lovenox. Off of amiodarone. Not very responsive to IV digoxin or IV metoprolol. Good response with p.o. metoprolol. Not a candidate for Cardizem drip due to underlying cardiomyopathy as per cardiology note. Continue p.o. metoprolol, p.o. digoxin, as needed IV hydralazine and digoxin. Cardiology following. Recommendations noted. (7) Thrombocytopenia Is this a current diagnosis for this admission?: Yes Plan: Most likely due to underlying liver cirrhosis due to chronic EtOH abuse. Monitor for bleeding. Daily CBC. (8) Cirrhosis of liver Qualifiers: Hepatic cirrhosis type: alcoholic cirrhosis Is this a current diagnosis for this admission?: Yes Plan: Patient has bitemporal wasting and jaundice. 1Thrombocytopenia, elevated liver chemistries.1 - Time Time Spent with patient: 35 or more minutes Anticipated Discharge Disposition: Long-Term Facility Anticipated Discharge Timeframe: within 72 hours
--- NOTE | 2020-08-11 18:49 | Progress Note ---
Provider Note Provider Note: please make sure that patient has Covid 19 testing done prior to the " anticipated procedure" also stop anticoagulation 24- 48 hours prior to procedure get cardiology clearance as well to see if cardiology agrees with stopping anticoagulant.
[2020-08-11] MEDS ORDERED: CHOLESTYRAMINE 4 GM PACKET ONE (22:27)
[2020-08-11] MEDS: CHOLESTYRAMINE 4 GM PACKET PO SCH (22:35)
[2020-08-12] MEDS: DEXTROSE 5%-NORMAL SALINE 1,000 ML IV PRN ×2 (03:52→18:25)
[2020-08-12] MEDS: ENOXAPARIN SODIUM INJ 80 MG/0.8 ML DISP.SYRIN SUBCUT SCH ×2 (06:30→18:30)
[2020-08-12 07:59] LABS: ABSOLUTE EOSINOPHILS # (AUTO) 0.1 10^3/uL (0.0-0.6); ABSOLUTE LYMPHOCYTES (AUTO) 0.4 10^3/uL (0.5-4.7); ABSOLUTE MONOCYTES (AUTO) 0.4 10^3/uL (0.1-1.4); ABSOLUTE NEUT (AUTO) 3.7 10^3/uL (1.7-8.2); BASOPHILS % (AUTO) 0.5 % (0-2); EOSINOPHILS % (AUTO) 2.6 % (0-6); HEMATOCRIT 36.3 % (37.9-51.0); HEMOGLOBIN 12.6 g/dL (13.5-17.0); LYMPHOCYTES % (AUTO) 9.3 % (13-45); MEAN CORPUSCULAR HGB CONC 34.8 g/dL (32.0-36.0); MEAN CORPUSCULAR VOLUME 121 fl (80-97); MONOCYTES % (AUTO) 9.1 % (3-13); RED BLOOD COUNT 3.01 10^6/uL (4.35-5.55); RED CELL DISTRIBUTION WIDTH 15.5 % (11.5-14.0); SEGMENTED NEUTROPHILS % (AUTO) 78.5 % (42-78); TOTAL CELLS COUNTED % (AUTO) 100 %; WHITE BLOOD COUNT 4.8 10^3/uL (4.0-10.5)
[2020-08-12 08:11] LABS: ALBUMIN 2.7 g/dL (3.5-5.0); ALKALINE PHOSPHATASE 109 U/L (38-126); ANION GAP 7 (5-19); ASPARTATE AMINO TRANSFERASE 50 U/L (17-59); BILIRUBIN,DIRECT 1.1 mg/dL (0.0-0.4); BILIRUBIN,TOTAL 2.4 mg/dL (0.2-1.3); BLOOD UREA NITROGEN 9 mg/dL (7-20); CALCIUM 8.5 mg/dL (8.4-10.2); CARBON DIOXIDE 28 mmol/L (22-30); CHLORIDE 100 mmol/L (98-107); GLUCOSE 133 mg/dL (75-110); POTASSIUM 3.2 mmol/L (3.6-5.0); TOTAL PROTEIN 6.1 g/dL (6.3-8.2)
[2020-08-12 08:48] LABS: ANISOCYTOSIS 1+; OVALOCYTES 1+; POIKILOCYTOSIS 1+; TEAR DROP CELLS 1+
[2020-08-12 08:49] LABS: PLATELET CLUMPS PRESENT; PLATELET COMMENT ADEQUATE
[2020-08-12 08:50] LABS: PLATELET COUNT 157 10^3/uL (150-450)
--- NOTE | 2020-08-12 10:29 | PDOC PROGRESS REPORT ---
Subjective Date:: 08/12/20 Subjective:: Patient seen and examined. Resting comfortably. Family members present. No co mplaints. Reason For Visit: UNCONTROLLED RAPID ATRIAL FIBRILLATION,DYSPHAGIA Physical Exam Vital Signs: Temp Pulse Resp BP Pulse Ox 97.8 F 60 20 125/91 H 89 L 08/12/20 08:31 08/12/20 08:31 08/12/20 08:31 08/12/20 08:31 08/12/20 08:31 Intake & Output 08/11/20 08/12/20 08/13/20 06:59 06:59 06:59 Intake Total 1618 1932 240 Output Total 500 1025 Balance 1118 907 240 Weight 85.9 kg 86 kg General appearance: PRESENT: no acute distress, cooperative, well-developed, well-nourished Head exam: PRESENT: atraumatic, normocephalic Eye exam: PRESENT: conjunctiva pink, EOMI Mouth exam: PRESENT: moist Respiratory exam: PRESENT: clear to auscultation madi, symmetrical, unlabored Cardiovascular exam: PRESENT: irregular rhythm, +S1, +S2 Pulses: PRESENT: normal radial pulses Rectal exam: PRESENT: deferred Musculoskeletal exam: PRESENT: normal inspection Neurological exam: PRESENT: alert, awake, oriented to person, oriented to place Results Laboratory Results: 08/12/20 07:30 08/12/20 07:30 08/12/20 08/12/20 08/12/20 07:30 07:30 07:30 WBC 4.8 RBC 3.01 L Hgb 12.6 L Hct 36.3 L MCV 121 H MCH 42.0 H MCHC 34.8 RDW 15.5 H Plt Count 157 Seg Neutrophils % 78.5 H Sodium 134.9 L Potassium 3.2 L Chloride 100 Carbon Dioxide 28 Anion Gap 7 BUN 9 Creatinine 0.43 L Est GFR ( Amer) > 60 Glucose 133 H Calcium 8.5 Total Bilirubin 2.4 H AST 50 Alkaline Phosphatase 109 Ammonia 17.7 Total Protein 6.1 L Albumin 2.7 L 08/05/20 08/05/20 08/05/20 11:09 11:09 14:05 Creatine Kinase 40 L Troponin I 0.043 0.039 NT-Pro-B Natriuret Pep 08/05/20 14:05 Creatine Kinase Troponin I NT-Pro-B Natriuret Pep 3680 H Impressions: Chest X-Ray 08/05/20 12:52 IMPRESSION: New small left effusion. Moderate cardiomegaly. Esophagus X-Ray 08/09/20 00:00 IMPRESSION: 1. ESOPHAGEAL DYSMOTILITY. 2. MODERATE FREE-FLOWING GASTROESOPHAGEAL REFLUX. 3. THERE IS IMPRESSION UPON THE DISTAL ESOPHAGUS FROM LARGE HEART ALTHOUGH THIS DOES NOT INHIBIT PASSAGE OF CONTRAST OR THE TABLET THROUGH THE ESOPHAGUS. Abdomen Ultrasound 08/10/20 17:00 IMPRESSION: Nodular contour of the liver from cirrhosis Trace right upper quadrant free fluid Small to moderate right pleural effusion Gallstones Assessment & Plan - Diagnosis (1) Cardiomyopathy Qualifiers: Cardiomyopathy type: unspecified Qualified Code(s): I42.9 - Cardiomyopathy, unspecified Is this a current diagnosis for this admission?: Yes Plan: Dilated cardiomyopathy. Etiology has not been established. Appears to be euvolemic. Watch volume status. Therapy limited significantly on account of ongoing issues including dementia and ability to tolerate oral intake. (2) Atrial fibrillation with rapid ventricular response Is this a current diagnosis for this admission?: Yes Plan: Patient's heart rate appears to be much better controlled. I think he would be better off on oral beta-jaleel together with digoxin if necessary. Would prefer beta-jaleel as monotherapy. Given age and possible underlying cardiomyopathy systemic anticoagulation is ideal for stroke prophylaxis. Presently he is on enoxaparin. This should be transitioned to oral agent once GI evaluation has been completed and oral intake can proceed uninterrupted. (3) Preop cardiovascular exam Is this a current diagnosis for this admission?: Yes Plan: GI evaluation is being planned. From a cardiac standpoint patient is fairly well compensated. Although he probably has underlying cardiomyopathy he is well compensated from a volume standpoint Atrial fibrillation appears to be the main problem and is somewhat rate controlled at the moment. It is highly important that the patient be able to take oral therapy for control of ventricular rate as well as for systemic anticoagulation Given this further risk stratification is not being planned and would be counterintuitive. Proceed with usual precautions with careful attention to volume status If atrial fibrillation with rapid ventricular rate should occur parenteral beta- jaleel therapy with perhaps esmolol or aliquots of metoprolol together with digoxin if necessary can be pursued as was done earlier.
--- NOTE | 2020-08-12 11:40 | PDOC CONSULTATION ---
Consultation Consult Date: 08/12/20 Provider Consulted: SHERRIE PARIKH Consult reason:: dysphagia History of Present Illness Admission Date/PCP: 08/05/20 16:46 BREANNE ALY MD History of Present Illness: JUDIE MOORE JR is a 85 year old male asked to see this patient who has been having dysphagia had imaging study that was noted for " free flowing reflux" no stricture was noted also heart likely abutting part of the esophagus will need EGD patient has tested negative for Covid 19 Cardiology seeing patient will need transition to oral anticoagulant following EGD currently on enoxaprin which will need to be discontinued in the am for 6 hours prior to his EGD Past Medical History Cardiac Medical History: Reports: Atrial Fibrillation - 02/25/17, Congestive Heart Failure Denies: Coronary Artery Disease, Myocardial Infarction, Hypertension Pulmonary Medical History: Denies: Asthma, Bronchitis, Chronic Obstructive Pulmonary Disease (COPD), Pneumonia Neurological Medical History: Denies: Seizures Endocrine Medical History: Reports: Diabetes Mellitus Type 2 GI Medical History: Reports: Cirrhosis Musculoskeltal Medical History: Reports: Arthritis - RIGHT SHOULDER Psychiatric Medical History: Denies: Depression Hematology: Denies: Anemia Past Surgical History Past Surgical History: Reports: Orthopedic Surgery - Left AKA, Other - Multiple sinus surgeries Denies: Pacemaker Social History Smoking Status: Unknown if Ever Smoked Electronic Cigarette use?: No Frequency of Alcohol Use: Heavy Hx Recreational Drug Use: No Drugs: None Hx Prescription Drug Abuse: No - Advance Directive Resuscitation Status: Full Code Family History Family History: None, Reviewed & Not Pertinent Parental Family History Reviewed: Yes Children Family History Reviewed: Unknown Sibling(s) Family History Reviewed.: Unknown Medication/Allergy Home Medications: Furosemide [Lasix 40 mg Tablet] 40 mg PO DAILY #30 tablet 07/18/20 Metoprolol Succinate [Toprol Xl 50 mg Tab.sr] 50 mg PO DAILY #30 tab.sr.24h 07/18/20 Triamcinolone Acetonide [Aristocort 0.5% Cream 15 gm] 1 applic TP BID #1 tube 07/18/20 Cyproheptadine HCl 4 mg PO TID 08/05/20 Diltiazem HCl [Diltiazem ER] 240 mg PO DAILY 08/05/20 Famotidine [Acid Television Repairer] 20 mg PO DAILY 08/05/20 Ginseng 250 mg PO DAILY 08/05/20 Mupirocin [Bactroban 2% Ointment 22 gm] 1 applic TP TID 08/05/20 Potassium Chloride 20 meq PO BID 08/05/20 Allergies/Adverse Reactions: No Known Allergies Allergy (Verified 07/29/17 10:12) Review of Systems Constitutional: ABSENT: fever(s), headache(s), night sweats Eyes: ABSENT: visual disturbances Ears: ABSENT: hearing changes Nose, Mouth, and Throat: ABSENT: mouth pain, sore throat Cardiovascular: ABSENT: edema Respiratory: ABSENT: dyspnea, hemoptysis Gastrointestinal: PRESENT: dysphagia Genitourinary: ABSENT: dysuria, hematuria Integumentary: ABSENT: lesions, pruritus Neurological: ABSENT: syncope, tingling, tremor(s), vertigo Endocrine: ABSENT: polydipsia, polyphagia, polyuria Hematologic/Lymphatic: ABSENT: easy bruising Physical Exam Vital Signs: Temp Pulse Resp BP Pulse Ox 97.8 F 60 20 125/91 H 89 L 08/12/20 08:31 08/12/20 08:31 08/12/20 08:31 08/12/20 08:31 08/12/20 08:31 Intake & Output 08/11/20 08/12/20 08/13/20 06:59 06:59 06:59 Intake Total 1618 1932 240 Output Total 500 1025 Balance 1118 907 240 Weight 85.9 kg 86 kg General appearance: PRESENT: no acute distress Head exam: PRESENT: atraumatic, normocephalic Eye exam: PRESENT: EOMI, PERRLA. ABSENT: nystagmus, scleral icterus Mouth exam: PRESENT: moist, neck supple Throat exam: ABSENT: tonsillogmegaly Neck exam: ABSENT: meningismus, tenderness, thyromegaly Respiratory exam: PRESENT: symmetrical, unlabored. ABSENT: tachypnea, wheezes Cardiovascular exam: PRESENT: irregular rhythm GI/Abdominal exam: PRESENT: soft. ABSENT: rebound, rigid, tenderness Extremities exam: ABSENT: joint swelling, pedal edema Musculoskeletal exam: PRESENT: full ROM Neurological exam: PRESENT: alert, CN II-XII grossly intact. ABSENT: oriented to time Skin exam: PRESENT: normal color. ABSENT: mottled, pallor, urticaria, vesicles Results Laboratory Results: 08/12/20 07:30 08/12/20 07:30 08/12/20 08/12/2020 07:30 07:30 07:30 WBC 4.8 RBC 3.01 L Hgb 12.6 L Hct 36.3 L MCV 121 H MCH 42.0 H MCHC 34.8 RDW 15.5 H Plt Count 157 Seg Neutrophils % 78.5 H Sodium 134.9 L Potassium 3.2 L Chloride 100 Carbon Dioxide 28 Anion Gap 7 BUN 9 Creatinine 0.43 L Est GFR ( Amer) > 60 Glucose 133 H Calcium 8.5 Total Bilirubin 2.4 H AST 50 Alkaline Phosphatase 109 Ammonia 17.7 Total Protein 6.1 L Albumin 2.7 L 08/05/20 08/05/20 08/05/20 11:09 11:09 14:05 Creatine Kinase 40 L Troponin I 0.043 0.039 NT-Pro-B Natriuret Pep 08/05/20 14:05 Creatine Kinase Troponin I NT-Pro-B Natriuret Pep 3680 H Impressions: Chest X-Ray 08/05/20 12:52 IMPRESSION: New small left effusion. Moderate cardiomegaly. Esophagus X-Ray 08/09/20 00:00 IMPRESSION: 1. ESOPHAGEAL DYSMOTILITY. 2. MODERATE FREE-FLOWING GASTROESOPHAGEAL REFLUX. 3. THERE IS IMPRESSION UPON THE DISTAL ESOPHAGUS FROM LARGE HEART ALTHOUGH THIS DOES NOT INHIBIT PASSAGE OF CONTRAST OR THE TABLET THROUGH THE ESOPHAGUS. Abdomen Ultrasound 08/10/20 17:00 IMPRESSION: Nodular contour of the liver from cirrhosis Trace right upper quadrant free fluid Small to moderate right pleural effusion Gallstones Assessment & Plan - Diagnosis (1) Dysphagia Qualifiers: Dysphagia type: esophageal phase Qualified Code(s): R13.10 - Dysphagia, unspecified Is this a current diagnosis for this admission?: Yes Plan: will schedule EGD Risks, benefits and alternatives are discussed with the patient in detail further recommendations to follow etiology of dysphagia unclear - Time Time Spent: 50 to 70 Minutes
[2020-08-12] MEDS: DIGOXIN 0.25 MG TABLET PO SCH (12:13)
[2020-08-12] MEDS: PANTOPRAZOLE SODIUM 40 MG VIAL IV SCH ×2 (12:13→23:16)
[2020-08-12] MEDS: METOPROLOL SUCCINATE 50 MG TAB.SR.24H PO SCH ×2 (12:13→23:16)
[2020-08-12] MEDS: MULTIVITAMIN ORAL LIQUID 60 ML PO SCH (12:14)
[2020-08-12] MEDS: METOCLOPRAMIDE HCL ORAL SOLN 10 MG/10 ML UDCUP PO PRN (12:16)
[2020-08-12] MEDS: MAG HYDROX/AL HYDROX/SIMETH SUSP 30 ML UDCUP PO PRN (12:19)
[2020-08-12] MEDS: TRIAMCINOLONE ACETONIDE 0.5% CREAM 15 GM TP SCH ×2 (12:21→18:29)
[2020-08-12] MEDS: CHOLESTYRAMINE 4 GM PACKET PO SCH ×4 (12:22→23:16)
--- NOTE | 2020-08-12 15:52 | PDOC PROGRESS REPORT ---
Subjective Date:: 08/12/20 Subjective:: Art Lance 85-year-old male with past medical history of A. fib RVR, dysphagia, dementia, chronic EtOH abuse, GERD, who was unfortunately been frequently admitted to ED but have left AMA each time, patient was brought to ED for family complaining of several weeks of dysphagia and decreased p.o. intake, patient was seen at the stretching machine operator office for evaluation of his dysphagia, was noted to be in A. fib RVR and was sent to ED. Since patient could not take p.o. pills he was a started on IV metoprolol digoxin which did not help, patient was admitted to ICU and was a started on amiodarone drip, cardiology was consulted, barium swallow was also obtained which did not show any aspiration however moderate cricopharyngeal hypertrophy, esophageal dysmotility, moderate free-flowing gastroesophageal reflux no masses was noted. 08/10/2020. No acute events overnight. Patient has been able to take p.o. pills, and has been tolerating some food without sign of aspiration, patient has been given a GI cocktail to make it easy for her to tolerate his food, has not had any nausea or vomiting, denies any fever, chills, nausea, vomiting, diarrhea, constipation or any urinary symptoms. 08/11/2020. No acute events overnight. Patient is tolerating some food and his p.o. medication, denies any fever, chills, nausea, vomiting, diarrhea, constipation or any urinary symptoms. 08/12/2020. No acute events noted. Patient is very pleasant and cooperative with physical examination tolerating p.o. medication and some food. Patient A. fib is rate controlled. Gastroenterology has been consulted. Patient is scheduled for EGD tomorrow. Reason For Visit: UNCONTROLLED RAPID ATRIAL FIBRILLATION,DYSPHAGIA Physical Exam Vital Signs: Temp Pulse Resp BP Pulse Ox 97.8 F 60 20 125/91 H 89 L 08/12/20 08:31 08/12/20 08:31 08/12/20 08:31 08/12/20 08:31 08/12/20 08:31 Intake & Output 08/11/20 08/12/20 08/13/20 06:59 06:59 06:59 Intake Total 1618 1932 240 Output Total 500 1025 Balance 1118 907 240 Weight 85.9 kg 86 kg General appearance: PRESENT: no acute distress, well-developed, well-nourished Head exam: PRESENT: atraumatic, normocephalic Neck exam: ABSENT: carotid bruit, JVD, lymphadenopathy, thyromegaly Respiratory exam: PRESENT: clear to auscultation madi. ABSENT: rales, rhonchi, wheezes Cardiovascular exam: PRESENT: irregular rhythm. ABSENT: diastolic murmur, rubs, systolic murmur GI/Abdominal exam: PRESENT: normal bowel sounds, soft. ABSENT: distended, guarding, mass, organolmegaly, rebound, tenderness Neurological exam: PRESENT: alert, awake, oriented to person, oriented to place, CN II-XII grossly intact. ABSENT: motor sensory deficit Skin exam: PRESENT: rash - Improved. Results Laboratory Results: 08/12/20 07:30 08/12/20 07:30 08/12/20 08/12/20 08/12/20 07:30 07:30 07:30 WBC 4.8 RBC 3.01 L Hgb 12.6 L Hct 36.3 L MCV 121 H MCH 42.0 H MCHC 34.8 RDW 15.5 H Plt Count 157 Seg Neutrophils % 78.5 H Sodium 134.9 L Potassium 3.2 L Chloride 100 Carbon Dioxide 28 Anion Gap 7 BUN 9 Creatinine 0.43 L Est GFR ( Amer) > 60 Glucose 133 H Calcium 8.5 Total Bilirubin 2.4 H AST 50 Alkaline Phosphatase 109 Ammonia 17.7 Total Protein 6.1 L Albumin 2.7 L 08/05/20 08/05/20 08/05/20 11:09 11:09 14:05 Creatine Kinase 40 L Troponin I 0.043 0.039 NT-Pro-B Natriuret Pep 08/05/20 14:05 Creatine Kinase Troponin I NT-Pro-B Natriuret Pep 3680 H Impressions: Chest X-Ray 08/05/20 12:52 IMPRESSION: New small left effusion. Moderate cardiomegaly. Esophagus X-Ray 08/09/20 00:00 IMPRESSION: 1. ESOPHAGEAL DYSMOTILITY. 2. MODERATE FREE-FLOWING GASTROESOPHAGEAL REFLUX. 3. THERE IS IMPRESSION UPON THE DISTAL ESOPHAGUS FROM LARGE HEART ALTHOUGH THIS DOES NOT INHIBIT PASSAGE OF CONTRAST OR THE TABLET THROUGH THE ESOPHAGUS. Abdomen Ultrasound 08/10/20 17:00 IMPRESSION: Nodular contour of the liver from cirrhosis Trace right upper quadrant free fluid Small to moderate right pleural effusion Gallstones Assessment and Plan - Diagnosis (1) Dysphagia Qualifiers: Dysphagia type: esophageal phase Qualified Code(s): R13.10 - Dysphagia, unspecified Is this a current diagnosis for this admission?: Yes Plan: Chronic history of dysphagia to solids and liquids. History of chronic heavy EtOH abuse status post hiatal hernia repair in the 90s. 08/09/2020 barium swallow positive for moderate cricopharyngeal hypertrophy, esophageal dysmotility, moderate free-flowing gastroesophageal reflux no masses was noted. Patient able to tolerate some p.o. intake and p.o. medications if given with GI cocktail before eating. Continue PPI IV, continue GI cocktail, continue full liquid diet close monitoring for aspiration. Registered dietitian consult. Patient will need an EGD but unfortunately GI consult not available until Wednesday. GI has been consulted. Upper GI endoscopy scheduled for tomorrow. Day after midnight. Hold Lovenox 4 AM. (2) Cardiomyopathy Qualifiers: Cardiomyopathy type: unspecified Qualified Code(s): I42.9 - Cardiomyopathy, unspecified Is this a current diagnosis for this admission?: Yes Plan: History of cardiomyopathy likely EtOH related. Cardiology on board. Recommendations noted. (3) Dementia Qualifiers: Dementia type: unspecified type Is this a current diagnosis for this admission?: Yes Plan: Supportive measures. Not sure if alcohol or vitamin B-12 deficiency contributing to his dementia. We will obtain B12, folic acid and TSH level. (4) Pruritic rash Is this a current diagnosis for this admission?: Yes Plan: Moderate improvement. Patient has nonvesicular pruritic rash on his anterior trunk and bilateral upper extremities. As per son it was because due to excessive picking and itching his skin due to itching most likely caused by his lying liver failure. Significant improvement since admission. No sign of infection. Continue wound care, topical antihistamine, p.o. cholestyramine. (5) Alcohol dependence Qualifiers: Complication of substance-induced condition: uncomplicated Is this a current diagnosis for this admission?: Yes Plan: History of chronic heavy alcohol abuse. Last alcohol intake 2 weeks ago. Does not appear to be in any acute withdrawal. Continue folic acid, thiamine, multivitamins, DT precautions. (6) Atrial fibrillation with rapid ventricular response Is this a current diagnosis for this admission?: Yes Plan: Rate controlled with oral beta-blockers and digoxin. Anticoagulated with Lovenox patient has dysphagia and is scheduled to have EGD. Off of amiodarone. Not very responsive to IV digoxin or IV metoprolol. Not a candidate for Cardizem drip due to underlying cardiomyopathy as per cardiology note. Continue p.o. metoprolol, p.o. digoxin, as needed IV hydralazine and digoxin. Continue subcutaneous Lovenox, switch to p.o. new oral anticoagulants after upper GI endoscopy and if no further procedures are planned. Cardiology following. Recommendations noted. (7) Thrombocytopenia Is this a current diagnosis for this admission?: Yes Plan: Most likely due to underlying liver cirrhosis due to chronic EtOH abuse. Monitor for bleeding. Daily CBC. (8) Cirrhosis of liver Qualifiers: Hepatic cirrhosis type: alcoholic cirrhosis Is this a current diagnosis for this admission?: Yes Plan: Patient has bitemporal wasting and jaundice. Thrombocytopenia, elevated liver chemistries.1 Ultrasound of the liver positive for nodular contour of the liver from cirrhosis. Will check hepatitis panel. Ammonia WNL. Could be placed on Lasix, spironolactone and lactulose upon discharge. Outpatient PCP and gastroenterology follow-up. - Time Time Spent with patient: 35 or more minutes Anticipated Discharge Disposition: Home with Home Health Anticipated Discharge Timeframe: within 72 hours
--- NOTE | 2020-08-12 19:02 | PDOC CONSULTATION ---
Consultation-Blank Consultation: Behavioral Health Consult: Presenting Problem: FULL Involuntary Commitment due to dementia like concerns, ability to understand what he declines to medical health kurtz, need for medical treatment, and medication stabilization. Impression/Plan: Once patient is no longer medically emergent Involuntary Commitment must be rescinded. Hospitalist to keep Behavioral Health notified. Likely rescind tomorrow (08/13/2020). Consulted with Dr. Galicia regarding the management and care of patient. Hospitalist aware of recommendation.
[2020-08-13] MEDS: ENOXAPARIN SODIUM INJ 80 MG/0.8 ML DISP.SYRIN SUBCUT SCH (05:15)
[2020-08-13] MEDS: DEXTROSE 5%-NORMAL SALINE 1,000 ML IV PRN (07:59)
[2020-08-13 10:09] LABS: INTERNATIONAL RATION (INR) 1.17; PROTHROMBIN TIME 15.1 SEC (11.4-15.4)
[2020-08-13 10:21] LABS: ALKALINE PHOSPHATASE 103 U/L (38-126); ANION GAP 8 (5-19); ASPARTATE AMINO TRANSFERASE 48 U/L (17-59); BILIRUBIN,DIRECT 1.1 mg/dL (0.0-0.4); BILIRUBIN,TOTAL 2.2 mg/dL (0.2-1.3); BLOOD UREA NITROGEN 6 mg/dL (7-20); CALCIUM 8.6 mg/dL (8.4-10.2); CARBON DIOXIDE 31 mmol/L (22-30); CHLORIDE 97 mmol/L (98-107); GLUCOSE 107 mg/dL (75-110); POTASSIUM 3.4 mmol/L (3.6-5.0); TOTAL PROTEIN 5.9 g/dL (6.3-8.2)
[2020-08-13] MEDS: METOPROLOL SUCCINATE 50 MG TAB.SR.24H PO SCH (10:48)
[2020-08-13 11:26] LABS: ABSOLUTE EOSINOPHILS # (AUTO) 0.1 10^3/uL (0.0-0.6); ABSOLUTE LYMPHOCYTES (AUTO) 0.4 10^3/uL (0.5-4.7); ABSOLUTE MONOCYTES (AUTO) 0.6 10^3/uL (0.1-1.4); ABSOLUTE NEUT (AUTO) 3.4 10^3/uL (1.7-8.2); BASOPHILS % (AUTO) 0.4 % (0-2); EOSINOPHILS % (AUTO) 2.8 % (0-6); HEMATOCRIT 37.5 % (37.9-51.0); HEMOGLOBIN 13.1 g/dL (13.5-17.0); LYMPHOCYTES % (AUTO) 8.5 % (13-45); MEAN CORPUSCULAR HEMOGLOBIN 42.2 pg (27.0-33.4); MEAN CORPUSCULAR HGB CONC 34.8 g/dL (32.0-36.0); MEAN CORPUSCULAR VOLUME 121 fl (80-97); MONOCYTES % (AUTO) 12.5 % (3-13); PLATELET COUNT 127 10^3/uL (150-450); SEGMENTED NEUTROPHILS % (AUTO) 75.8 % (42-78); TOTAL CELLS COUNTED % (AUTO) 100 %; WHITE BLOOD COUNT 4.5 10^3/uL (4.0-10.5)
--- NOTE | 2020-08-13 11:38 | Operative Report ---
Operative Report DATE OF SURGERY: 08/13/20 Operative Report: The risks benefits and alternatives of the procedure explained to the patient in detail and informed consent is obtained.A GIF Olympus video scope was inserted into the patient's mouth and hypopharynx, the esophagus is identified intubated and insufflated, the scope was then advanced through the esophagus stomach and duodenum, retroflexion maneuver is done the esophagus stomach and first and second portions of the duodenum examined PREOPERATIVE DIAGNOSIS: Dysphagia POSTOPERATIVE DIAGNOSIS: no esophageal obstruction noted. Hiatal hernia. Large nonbleeding gastric ulcer in the distal antrum. Gastritis status post biopsy OPERATION: EGD with biopsy SURGEON: SHERRIE PARIKH ANESTHESIA: LMAC TISSUE REMOVED OR ALTERED: As noted above. COMPLICATIONS: None. ESTIMATED BLOOD LOSS: None. INTRAOPERATIVE FINDINGS: As noted above. PROCEDURE: Patient tolerated the procedure well. No immediate postprocedure complications are noted. Patient is sent to recovery in good condition. He should be able to go back to his room Resume previous diet Wait on biopsies Anticoagulation needs to be likely withheld temporarily on this patient he has a large, ulcer that likely will bleed if he is overly anticoagulated. Start PPI on the patient. We will need documentation of ulcer healing prior to resumption of anticoagulation
[2020-08-13 12:04] LABS: ANISOCYTOSIS SLIGHT; OVALOCYTES 1+; PLATELET COMMENT DECREASED; POIKILOCYTOSIS 1+
[2020-08-13 12:05] LABS: POLYCHROMASIA SLIGHT; TEAR DROP CELLS 1+
--- NOTE | 2020-08-13 12:59 | PDOC CONSULTATION ---
Consultation-Blank Consultation: Behavioral Health Consult: Chart review and Hospitalist collateral/discussion Presenting Problem: FULL Involuntary Commitment due to dementia like concerns, ability to understand what he declines to medical health kurtz, need for medical treatment, and medication stabilization. Chart review revealed patient's Primary Care Provider is Dr. Rea. Most home medications listed are medically related with the exception of Vistaril which can be used for anxiety/calming effect but was prescribed February 2020 for itchiness. Patient is not being administered any psychiatric medication while in the hospital. Hospitalist noted patient does not meet Involuntary Commitment Criteria which was agreed. She was made aware the Involuntary Commitment yesterday. She asked for medication recommendations. Clinical Presentation: Dementia by History Medication recommendations made by the psychiatric medication provider Dr. Heldaio CARLOS., includes: These medications will address symptoms while taking into consideration neurodegenerative processes/dementia Add Keppra 250MG twice a day for mood stabilization (does not affect Blood Sugar, not processed via liver, better than Trileptal due to chronic alcohol use Add Buspar 5MG twice a day for anxiety/calming effect/depression/sleep Utilize the Lopressor Injection 5MG Intravenous every 6 hours as needed (can also be used for behaviors) Impression/Plan: Patent was on a FULL Involuntary Commitment as a result of dementia history, confusion, history of non adherence to medical needs and leaving against medical advice, and concerns for significant reasonable probability he would suffer serious physical debilitation within the near future unless he received adequate treatment. He did not have the care and supervision at home to ensure self-control, judgment and discretion to satisfy his personal or medical care. Hospitalist and Behavioral Health in agreement patient no longer meets Involuntary Commitment criteria. Obtained medication recommend ations as requested and Hospitalist notified. Consulted with Dr. Galicia regarding the management and care of patient. Coordinated with the Hospitalist a couple times.
[2020-08-13] MEDS: CHOLESTYRAMINE 4 GM PACKET PO SCH ×2 (15:30→18:24)
[2020-08-13] MEDS: MULTIVITAMIN ORAL LIQUID 60 ML PO SCH (15:31)
[2020-08-13] MEDS: PANTOPRAZOLE SODIUM 40 MG VIAL IV SCH (15:33)
[2020-08-13] MEDS: DIGOXIN 0.25 MG TABLET PO SCH (15:37)
[2020-08-13] MEDS: TRIAMCINOLONE ACETONIDE 0.5% CREAM 15 GM TP SCH ×2 (15:40→18:25)
--- NOTE | 2020-08-13 20:49 | PDOC PROGRESS REPORT ---
Subjective Date:: 08/13/20 Subjective:: NAEO Reason For Visit: UNCONTROLLED RAPID ATRIAL FIBRILLATION,DYSPHAGIA Physical Exam Vital Signs: Temp Pulse Resp BP Pulse Ox 97.5 F 102 H 16 114/76 99 08/13/20 13:32 08/13/20 14:57 08/13/20 14:57 08/13/20 14:57 08/13/20 14:57 Intake & Output 08/12/20 08/13/20 08/14/20 06:59 06:59 06:59 Intake Total 1932 1240 1750 Output Total 1025 1200 800 Balance 907 40 950 Weight 86 kg 85.9 kg 85.9 kg General appearance: PRESENT: no acute distress Eye exam: ABSENT: conjunctival injection Mouth exam: PRESENT: moist Throat exam: ABSENT: post pharyngeal erythema Neck exam: ABSENT: JVD Respiratory exam: PRESENT: unlabored GI/Abdominal exam: PRESENT: distended, normal bowel sounds, soft. ABSENT: guarding, rigid, tenderness Rectal exam: PRESENT: deferred Extremities exam: ABSENT: pedal edema Neurological exam: PRESENT: altered, awake, oriented to person. ABSENT: oriented to place, oriented to time, oriented to situation Psychiatric exam: PRESENT: appropriate affect Focused psych exam: ABSENT: restlessness Skin exam: ABSENT: rash Results Laboratory Results: 08/13/20 10:51 08/13/20 09:36 08/13/20 08/13/20 08/13/20 09:36 09:36 10:51 WBC Cancelled 4.5 RBC Cancelled 3.10 L Hgb Cancelled 13.1 L Hct Cancelled 37.5 L MCV Cancelled 121 H MCH Cancelled 42.2 H MCHC Cancelled 34.8 RDW Cancelled 15.0 H Plt Count Cancelled 127 L Seg Neutrophils % Cancelled 75.8 Sodium 136.1 L Potassium 3.4 L Chloride 97 L Carbon Dioxide 31 H Anion Gap 8 BUN 6 L Creatinine 0.43 L Est GFR ( Amer) > 60 Glucose 107 Calcium 8.6 Total Bilirubin 2.2 H AST 48 Alkaline Phosphatase 103 Total Protein 5.9 L Albumin 3.0 L 08/05/20 08/05/20 08/05/20 11:09 11:09 14:05 Creatine Kinase 40 L Troponin I 0.043 0.039 NT-Pro-B Natriuret Pep 08/05/20 14:05 Creatine Kinase Troponin I NT-Pro-B Natriuret Pep 3680 H Impressions: Chest X-Ray 08/05/20 12:52 IMPRESSION: New small left effusion. Moderate cardiomegaly. Esophagus X-Ray 08/09/20 00:00 IMPRESSION: 1. ESOPHAGEAL DYSMOTILITY. 2. MODERATE FREE-FLOWING GASTROESOPHAGEAL REFLUX. 3. THERE IS IMPRESSION UPON THE DISTAL ESOPHAGUS FROM LARGE HEART ALTHOUGH THIS DOES NOT INHIBIT PASSAGE OF CONTRAST OR THE TABLET THROUGH THE ESOPHAGUS. Abdomen Ultrasound 08/10/20 17:00 IMPRESSION: Nodular contour of the liver from cirrhosis Trace right upper quadrant free fluid Small to moderate right pleural effusion Gallstones Assessment and Plan - Diagnosis (1) Cardiomyopathy Qualifiers: Cardiomyopathy type: alcoholic Qualified Code(s): I42.6 - Alcoholic card iomyopathy Is this a current diagnosis for this admission?: Yes (2) Dementia Qualifiers: Dementia type: associated with alcoholism Is this a current diagnosis for this admission?: Yes (3) Dysphagia Qualifiers: Dysphagia type: esophageal phase Qualified Code(s): R13.10 - Dysphagia, unspecified Is this a current diagnosis for this admission?: Yes (4) Pruritic rash Is this a current diagnosis for this admission?: Yes (5) Alcohol dependence Qualifiers: Complication of substance-induced condition: uncomplicated Is this a current diagnosis for this admission?: Yes (6) Cirrhosis of liver Qualifiers: Hepatic cirrhosis type: alcoholic cirrhosis Is this a current diagnosis for this admission?: Yes (7) Paroxysmal atrial fibrillation with rapid ventricular response Is this a current diagnosis for this admission?: Yes (8) Thrombocytopenia Is this a current diagnosis for this admission?: Yes - Plan Summary Summary: Natalio Cordvoa Jr is a 85-year-old male with past medical history of Dementia, atrial fibrillation on AC, dysphagia, chronic EtOH abuse, alcoholic cirrhosis, GERD, who was brought to ED by family due to several weeks of dysphagia and decreased p.o. intake. Patient was initially seen at the [facility] office for evaluation of his dysphagia, was noted to be in AFRVR and so was sent to ED. Since patient could not take p.o. pills he was a started on IV metoprolol and digoxin which did not help, so he was admitted to ICU and started on amiodarone drip and cardiology was consulted. Dysphagia: Chronic history of dysphagia to solids and liquids. History of chronic heavy EtOH abuse status post hiatal hernia repair in the 90s. 08/09/2020 barium swallow positive for moderate cricopharyngeal hypertrophy, esophageal dysmotility, moderate free-flowing gastroesophageal reflux, no masses was noted. GI was consulted and he underwent EGD on 08/13/2020 showing large non-bleeding gastric ulcer in the distal antrum, gastritis and hiatal hernia, but no esophageal obstruction noted. He has been started on PPI therapy. Dilated Cardiomyopathy: likely due to EtOH abuse. Cardiology consulted. Dementia: likely due to longstanding alcohol abuse. Supportive measures. Fall precautions. Patient does not hav capacity to make medical decisions for himself. Pruritic rash: nonvesicular pruritic rash on his anterior trunk and bilateral upper extremities. As per son it was because due to excessive picking and itching his skin due to itching most likely caused by his lying liver failure. Significant improvement since admission. No sign of infection. Atrial fibrillation with rapid ventricular response: Rate controlled with oral beta-blockers and digoxin. Not on AC due to large gastric ulcer. Risk of stroke discussed at length with patient's sons on 08/13/2020. Alcoholic cirrhosis of liver: Patient has bitemporal wasting, jaundice, thrombocytopenia, elevated liver chemistries. Ultrasound of the liver positive for nodular contour of the liver from cirrhosis. Ammonia WNL. DVT ppx: not on AC due to gastric ulcer Code Status: DNR/DNI - Time Time Spent with patient: 35 or more minutes Anticipated Discharge Disposition: Home with Hospice Anticipated Discharge Timeframe: within 24 hours
--- NOTE | 2020-08-13 20:54 | ADVANCED CARE ---
- Diagnosis (1) Cardiomyopathy Diagnosis Current: Yes (2) Dementia Diagnosis Current: Yes (3) Dysphagia Diagnosis Current: Yes (4) Pruritic rash Diagnosis Current: Yes (5) Alcohol dependence Diagnosis Current: Yes (6) Cirrhosis of liver Diagnosis Current: Yes (7) Paroxysmal atrial fibrillation with rapid ventricular response Diagnosis Current: Yes (8) Thrombocytopenia Diagnosis Current: Yes Attendance: SonJohn (via phone) SonRaudel (in person) Resuscitation Status: Do Not Resuscitate Discussion: Mr. Cordova lives with his , who also has dementia. He has multiple children who collectively make decisions for him and are in the process of getting guardianship due to dementia. We discussed his multiple chronic medical problems, including cardiomyopathy, cirrhosis, dysphagia and increasingly worse quality of life. His children state that Mr. Cordova has repeatedly expressed that his wish is to remain at home, avoid hospitals and nursing homes, and maintain a high quality of life for as long as possible. We discussed home hospice services and the fact that hospice would help Mr. Cordova maintain his independence, quality of life and dignity at home for as long as possible. Family is in agreement to pursue home hospice services in an effort to avoid future hospitalizations and keep their dad safe at home. Code status changed to DNR/DNI. Time Spent: >30 minutes
[2020-08-13] MEDS ORDERED: METOPROLOL SUCCINATE 50 MG TAB.SR.24H PO SCH (22:00)
[2020-08-14] MEDS ORDERED: PANTOPRAZOLE SODIUM 40 MG TABLET.DR PO SCH (06:00)
[2020-08-14] MEDS: MULTIVITAMIN ORAL LIQUID 60 ML PO SCH (09:25)
[2020-08-14] MEDS: DIGOXIN 0.25 MG TABLET PO SCH (09:25)
[2020-08-14 10:47] VITALS: BP 114/88
--- NOTE | 2020-08-14 19:09 | PDOC DISCHARGE SUMMARY ---
Impression - Admit/DC Date/PCP Admission Date/Primary Care Provider: 08/05/20 16:46 BREANNE ALY MD Discharge Date: 08/14/20 - Discharge Diagnosis (1) Cardiomyopathy Is this a current diagnosis for this admission?: Yes (2) Dementia Is this a current diagnosis for this admission?: Yes (3) Dysphagia Is this a current diagnosis for this admission?: Yes (4) Pruritic rash Is this a current diagnosis for this admission?: Yes (5) Alcohol dependence Is this a current diagnosis for this admission?: Yes (6) Cirrhosis of liver Is this a current diagnosis for this admission?: Yes (7) Paroxysmal atrial fibrillation with rapid ventricular response Is this a current diagnosis for this admission?: Yes (8) Thrombocytopenia Is this a current diagnosis for this admission?: Yes - Assessment Summary: Natalio Cordova Jr is a 85-year-old male with past medical history of Dementia, atrial fibrillation on AC, dysphagia, chronic EtOH abuse, alcoholic cirrhosis, GERD, who was brought to ED by family due to several weeks of dysphagia and decreased p.o. intake. 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 Since patient could not take p.o. pills he was a started on IV metoprolol and digoxin which did not help, so he was admitted to ICU and started on amiodarone drip and cardiology was consulted. Dysphagia: Chronic history of dysphagia to solids and liquids. History of chronic heavy EtOH abuse status post hiatal hernia repair in the 90s. 08/09/2020 barium swallow positive for moderate cricopharyngeal hypertrophy, esophageal dysmotility, moderate free-flowing gastroesophageal reflux, no masses was noted. GI was consulted and he underwent EGD on 08/13/2020 showing large non-bleeding gastric ulcer in the distal antrum, gastritis and hiatal hernia, but no esophageal obstruction noted. He has been started on PPI therapy. Dilated Cardiomyopathy: likely due to EtOH abuse. Cardiology consulted. Dementia: likely due to longstanding alcohol abuse. Supportive measures. Fall precautions. Patient does not have capacity to make medical decisions for himself. Pruritic rash: nonvesicular pruritic rash on his anterior trunk and bilateral upper extremities. As per son it was because due to excessive picking and itching his skin due to itching most likely caused by his lying liver failure. Significant improvement since admission. No sign of infection. Atrial fibrillation with rapid ventricular response: Rate controlled with oral beta-blockers and digoxin. Not on AC due to large gastric ulcer. Risk of stroke discussed at length with patient's sons on 08/13/2020. Alcoholic cirrhosis of liver: Patient has bitemporal wasting, jaundice, thrombocytopenia, elevated liver chemistries. Ultrasound of the liver positive for nodular contour of the liver from cirrhosis. Ammonia WNL. DVT ppx: not on AC due to gastric ulcer Code Status: DNR/DNI Dispo: discharged to home with hospice services. - Additional Information Resuscitation Status: Do Not Resuscitate Discharge Diet: As Tolerated, Regular Discharge Activity: Activity As Tolerated Referrals: [facility] [Outside] (HOME WITH HOSPICE ) BREANNE ALY MD [Primary Care Provider] - 08/26/20 1:15 pm Home Medications: Furosemide [Lasix 40 mg Tablet] 40 mg PO DAILY #30 tablet 07/18/20 Triamcinolone Acetonide [Aristocort 0.5% Cream 15 gm] 1 applic TP BID #1 tube 07/18/20 Cyproheptadine HCl 4 mg PO TID 08/05/20 Mupirocin [Bactroban 2% Ointment 22 gm] 1 applic TP TID 08/05/20 Digoxin [Lanoxin 0.25 mg Tablet] 0.25 mg PO DAILY tablet 08/14/20 Metoprolol Succinate [Toprol Xl 50 mg Tab.sr] 200 mg PO QHS tab.sr.24h 08/14/20 Pantoprazole Sodium [Protonix [address] Tablet] 40 mg PO BID@0600,1700 tablet.dr 08/14/20 History of Present Illiness History of Present Illness: NATALIO CORDOVA JR is a 85 year old male Physical Exam Vital Signs: Temp Pulse Resp BP Pulse Ox 98.2 F 102 H 20 114/88 H 98 08/14/20 10:44 08/14/20 10:44 08/14/20 10:44 08/14/20 10:44 08/14/20 10:44 Intake & Output 08/13/20 08/14/20 08/15/20 06:59 06:59 06:59 Intake Total 1240 2331 240 Output Total 1200 850 20 Balance 40 1481 220 Weight 85.9 kg 84.2 kg Results Laboratory Results: WBC 4.5 10^3/uL (4.0-10.5) 08/13/20 10:51 RBC 3.10 10^6/uL (4.35-5.55) L 08/13/20 10:51 Hgb 13.1 g/dL (13.5-17.0) L 08/13/20 10:51 Hct 37.5 % (37.9-51.0) L 08/13/20 10:51 MCV 121 fl (80-97) H 08/13/20 10:51 MCH 42.2 pg (27.0-33.4) H 08/13/20 10:51 MCHC 34.8 g/dL (32.0-36.0) 08/13/20 10:51 RDW 15.0 % (11.5-14.0) H 08/13/20 10:51 Plt Count 127 10^3/uL (150-450) L 08/13/20 10:51 Lymph % (Auto) 8.5 % (13-45) L 08/13/20 10:51 [place] % (Auto) 12.5 % (3-13) 08/13/20 10:51 Eos % (Auto) 2.8 % (0-6) 08/13/20 10:51 Baso % (Auto) 0.4 % (0-2) 08/13/20 10:51 Absolute Neuts (auto) 3.4 10^3/uL (1.7-8.2) 08/13/20 10:51 Absolute Lymphs (auto) 0.4 10^3/uL (0.5-4.7) L 08/13/20 10:51 Absolute Monos (auto) 0.6 10^3/uL (0.1-1.4) 08/13/20 10:51 Absolute Eos (auto) 0.1 10^3/uL (0.0-0.6) 08/13/20 10:51 Absolute Basos (auto) 0.0 10^3/uL (0.0-0.2) 08/13/20 10:51 Total Counted 100 08/06/20 04:01 Seg Neutrophils % 75.8 % (42-78) 08/13/20 10:51 Seg Neuts % (Manual) 82 % (42-78) H 08/06/20 04:01 Lymphocytes % (Manual) 8 % (13-45) L 08/06/20 04:01 Monocytes % (Manual) 8 % (3-13) 08/06/20 04:01 Eosinophils % (Manual) 2 % (0-6) 08/06/20 04:01 Basophils % (Manual) 0 % (0-2) 08/06/20 04:01 Abs Neuts (Manual) 4.9 10^3/uL (1.7-8.2) 08/06/20 04:01 Abs Lymphs (Manual) 0.5 10^3/uL (0.5-4.7) 08/06/20 04:01 Abs Monocytes (Manual) 0.5 10^3/uL (0.1-1.4) 08/06/20 04:01 Absolute Eos (Manual) 0.1 10^3/uL (0.0-0.6) 08/06/20 04:01 Abs Basophils (Manual) 0.0 10^3/uL (0.0-0.2) 08/06/20 04:01 Toxic Granulation SLIGHT 08/07/20 20:14 Platelet Estimate Cancelled 08/13/20 09:36 Clumped Platelets PRESENT 08/12/20 07:30 Platelet Comment DECREASED 08/13/20 10:51 Polychromasia SLIGHT 08/13/20 10:51 Poikilocytosis 1+ 08/13/20 10:51 Anisocytosis SLIGHT 08/13/20 10:51 Macrocytosis 4+ 08/13/20 10:51 Tear Drop Cells 1+ 08/13/20 10:51 Ovalocytes 1+ 08/13/20 10:51 Schistocytes SLIGHT 08/06/20 04:01 PT 15.1 SEC (11.4-15.4) 08/13/20 09:36 INR 1.17 08/13/20 09:36 APTT 38.9 SEC (23.5-35.8) H 08/05/20 11:09 Sodium 136.1 mmol/L (137-145) L 08/13/20 09:36 Potassium 3.4 mmol/L (3.6-5.0) L 08/13/20 09:36 Chloride 97 mmol/L (98-107) L 08/13/20 09:36 Carbon Dioxide 31 mmol/L (22-30) H 08/13/20 09:36 Anion Gap 8 (5-19) 08/13/20 09:36 BUN 6 mg/dL (7-20) L 08/13/20 09:36 Creatinine 0.43 mg/dL (0.52-1.25) L 08/13/20 09:36 Est GFR ( Amer) > 60 (>60) 08/13/20 09:36 Est GFR (MDRD) Non-Af > 60 (>60) 08/13/20 09:36 Glucose 107 mg/dL (75-110) 08/13/20 09:36 Serum Osmolality 287 mOsm/kg (275-301) 08/06/20 22:18 Lactic Acid 4.6 mmol/L (0.7-2.1) H 08/05/20 14:05 Calcium 8.6 mg/dL (8.4-10.2) 08/13/20 09:36 Magnesium 2.0 mg/dL (1.6-2.3) 08/07/20 20:14 Total Bilirubin 2.2 mg/dL (0.2-1.3) H 08/13/20 09:36 Direct Bilirubin 1.1 mg/dL (0.0-0.4) H 08/13/20 09:36 Neonat Total Bilirubin Not Reportable 08/13/20 09:36 Neonat Direct Bilirubin Not Reportable 08/13/20 09:36 Neonat Indirect Bili Not Reportable 08/13/20 09:36 AST 48 U/L (17-59) 08/13/20 09:36 ALT 28 U/L (<50) 08/13/20 09:36 Alkaline Phosphatase 103 U/L (38-126) 08/13/20 09:36 Ammonia 17.7 umol/L (9-33) 08/12/20 07:30 Creatine Kinase 40 U/L (55-170) L 08/05/20 11:09 Troponin I 0.039 ng/mL 08/05/20 14:05 NT-Pro-B Natriuret Pep 3680 pg/mL (<450) H 08/05/20 14:05 Total Protein 5.9 g/dL (6.3-8.2) L 08/13/20 09:36 Albumin 3.0 g/dL (3.5-5.0) L 08/13/20 09:36 Vitamin B12 > 1000.0 pg/mL (239-931) H 08/10/20 08:40 Folate 17.10 ng/mL (>2.76) 08/10/20 08:40 TSH 3.99 uIU/mL (0.47-4.68) 08/10/20 08:40 Free T4 1.72 ng/dL (0.78-2.19) 08/10/20 08:40 Urine Color CHELE 08/07/20 11:45 Urine Appearance CLEAR 08/07/20 11:45 Urine pH 5.0 (5.0-9.0) 08/07/20 11:45 Ur Specific [place] 1.017 08/07/20 11:45 Urine Protein 100 mg/dL (NEGATIVE) H 08/07/20 11:45 Urine Glucose (UA) NEGATIVE mg/dL (NEGATIVE) 08/07/20 11:45 Urine Ketones TRACE mg/dL (NEGATIVE) H 08/07/20 11:45 Urine Blood NEGATIVE (NEGATIVE) 08/07/20 11:45 Urine Nitrite NEGATIVE (NEGATIVE) 08/07/20 11:45 Urine Bilirubin NEGATIVE (NEGATIVE) 08/07/20 11:45 Urine Urobilinogen 4.0 mg/dL (<2.0) H 08/07/20 11:45 Ur Leukocyte Esterase NEGATIVE (NEGATIVE) 08/07/20 11:45 Urine WBC (Auto) 1 /HPF 08/07/20 11:45 Urine RBC (Auto) 2 /HPF 08/05/20 11:09 U Hyaline Cast (Auto) 16 /LPF 08/07/20 11:45 Squamous Epi Cells Auto <1 /HPF 08/07/20 11:45 Urine Mucus (Auto) RARE /LPF 08/07/20 11:45 Urine Ascorbic Acid NEGATIVE (NEGATIVE) 08/07/20 11:45 Digoxin 0.83 ng/mL (0.8-2.0) 08/10/20 08:40 SARS-CoV-2 (PCR) NEGATIVE (NEGATIVE) 08/12/20 08:55 Slides for Path Review Cancelled 08/13/20 09:36 08/05/20 08/05/20 08/05/20 11:09 14:05 14:05 Troponin I 0.043 0.039 NT-Pro-B Natriuret Pep 3680 H Impressions: Chest X-Ray 08/05/20 12:52 IMPRESSION: New small left effusion. Moderate cardiomegaly. Esophagus X-Ray 08/09/20 00:00 IMPRESSION: 1. ESOPHAGEAL DYSMOTILITY. 2. MODERATE FREE-FLOWING GASTROESOPHAGEAL REFLUX. 3. THERE IS IMPRESSION UPON THE DISTAL ESOPHAGUS FROM LARGE HEART ALTHOUGH THIS DOES NOT INHIBIT PASSAGE OF CONTRAST OR THE TABLET THROUGH THE ESOPHAGUS. Abdomen Ultrasound 08/10/20 17:00 IMPRESSION: Nodular contour of the liver from cirrhosis Trace right upper quadrant free fluid Small to moderate right pleural effusion Gallstones Stroke Is this a Stroke Patient?: No Acute Heart Failure Is this a Heart Failure Patient?: No
== END 2020-08-14 11:42 | disposition hospice, home (50) | DRG 308 ==
LOC: ER 09:51 → EH 16:46 → ICU 18:25 → 5 08-09 17:53
PROVIDERS: ADMIT Anesthesiology; ATTEND Hospitalist
PROC: 0DB68ZX Excision of Stomach, Via Natural or Artificial Opening Endoscopic, Diagnostic (ICD-10-PCS; principal; 2020-08-13 11:15)
DX: I48.0 Paroxysmal atrial fibrillation (principal); L89.313 Pressure ulcer of right buttock, stage 3; L89.323 Pressure ulcer of left buttock, stage 3; D69.6 Thrombocytopenia, unspecified; I42.0 Dilated cardiomyopathy; F03.90 Unspecified dementia, unspecified severity, without behavioral disturbance, psychotic disturbance, mood disturbance, and anxiety; K70.30 Alcoholic cirrhosis of liver without ascites; I50.9 Heart failure, unspecified; Z89.612 Acquired absence of left leg above knee; I11.0 Hypertensive heart disease with heart failure; L29.9 Pruritus, unspecified; F10.20 Alcohol dependence, uncomplicated; R13.10 Dysphagia, unspecified; K21.9 Gastro-esophageal reflux disease without esophagitis; K44.9 Diaphragmatic hernia without obstruction or gangrene; K25.9 Gastric ulcer, unspecified as acute or chronic, without hemorrhage or perforation; Z66 Do not resuscitate; E11.9 Type 2 diabetes mellitus without complications; M19.011 Primary osteoarthritis, right shoulder; Z91.14 Patient's other noncompliance with medication regimen; Z87.891 Personal history of nicotine dependence; R63.0 Anorexia; R53.1 Weakness; K29.70 Gastritis, unspecified, without bleeding; J39.2 Other diseases of pharynx; Z11.59 Encounter for screening for other viral diseases; Z79.899 Other long term (current) drug therapy
CPT/HCPCS: 36415; 43239; 71045; 731; 74220; 76705; 80048; 80053; 80162; 81001; 82140; 82550; 82607; 82746; 83605; 83735; 83880; 83930; 84439; 84443; 84484; 85025; 85027; 85610; 85730; 87070; 87635; 88305; 93005; 93010; 93976; 96374; 96375; 96376; 99291; C9113; C9803; J0282; J1160; J1200; J1630; J1650; J3475; J3480; J3490; J7042; J7050; J7060; J7120; P9047

== ENCOUNTER 2020-08-22 01:42 | Emergency (ER) | payer MEDICARE, BC ==
--- NOTE | 2020-08-22 02:24 | ER Document Report ---
ED GI Bleed / Rectal Pain - General Chief Complaint: Rectal Bleeding Stated Complaint: RECTAL BLEEDING Time Seen by Provider: 08/22/20 02:04 Primary Care Provider: BREANNE ALY MD [Primary Care Provider] - Follow up as needed Mode of Arrival: Medic Information source: Patient Notes: PRIOR ADMIT DR SAAVEDRA 08/05 Attending Provider: FRANCISCO SAAVEDRA Date: 08/14/20 19:08 Initialization Date: 08/14/20 19:08 Impression - Admit/DC Date/PCP Admission Date/Primary Care Provider: 08/05/20 16:46 BREANNE ALY MD Discharge Date: 08/14/20 - Discharge Diagnosis (1) Cardiomyopathy Is this a current diagnosis for this admission?: Yes (2) Dementia Is this a current diagnosis for this admission?: Yes (3) Dysphagia Is this a current diagnosis for this admission?: Yes (4) Pruritic rash Is this a current diagnosis for this admission?: Yes (5) Alcohol dependence Is this a current diagnosis for this admission?: Yes (6) Cirrhosis of liver Is this a current diagnosis for this admission?: Yes (7) Paroxysmal atrial fibrillation with rapid ventricular response Is this a current diagnosis for this admission?: Yes (8) Thrombocytopenia Is this a current diagnosis for this admission?: Yes - Assessment Summary: Natalio Cordova Jr is a 85-year-old male with past medical history of Dementia, atrial fibrillation on AC, dysphagia, chronic EtOH abuse, alcoholic cirrhosis, GERD, who was brought to ED by family due to several weeks of dysphagia and decreased p.o. intake. Patient was initially seen at the [facility] for evaluation of his dysphagia, was noted to be in AFRVR and so was sent to ED. Since patient could not take p.o. pills he was a started on IV metoprolol and digoxin which did not help, so he was admitted to ICU and started on amiodarone drip and cardiology was consulted. Dysphagia: Chronic history of dysphagia to solids and liquids. History of chronic heavy EtOH abuse status post hiatal hernia repair in the 90s. 08/09/2020 barium swallow positive for moderate cricopharyngeal hypertrophy, esophageal dysmotility, moderate free-flowing gastroesophageal reflux, no masses was noted. GI was consulted and he underwent EGD on 08/13/2020 showing large non-bleeding gastric ulcer in the distal antrum, gastritis and hiatal hernia, but no esophageal obstruction noted. He has been started on PPI therapy. Dilated Cardiomyopathy: likely due to EtOH abuse. Cardiology consulted. Dementia: likely due to longstanding alcohol abuse. Supportive measures. Fall precautions. Patient does not have capacity to make medical decisions for himself. Pruritic rash: nonvesicular pruritic rash on his anterior trunk and bilateral upper extremities. As per son it was because due to excessive picking and itching his skin due to itching most likely caused by his lying liver failure. Significant improvement since admission. No sign of infection. Atrial fibrillation with rapid ventricular response: Rate controlled with oral beta-blockers and digoxin. Not on AC due to large gastric ulcer. Risk of stroke discussed at length with patient's sons on 08/13/2020. Alcoholic cirrhosis of liver: Patient has bitemporal wasting, jaundice, t hrombocytopenia, elevated liver chemistries. Ultrasound of the liver positive for nodular contour of the liver from cirrhosis. Ammonia WNL. DVT ppx: not on AC due to gastric ulcer Code Status: DNR/DNI Dispo: discharged to home with hospice services. - Additional Information Resuscitation Status: Do Not Resuscitate Discharge Diet: As Tolerated, Regular Discharge Activity: Activity As Tolerated Referrals: [facility] [Outside] ([facility] is working for [employer] today 85-year-old male arrives with chief complaint of lower abdominal pain and stool that is black over his diapers briefs and T-shirt and around his upper back. Patient is a DNR and lives at home with his son. Patient is a hospice patient as well. Patient had a guaiac positive card upon arrival; stool is black in color but not maroon. I discussed case with Dr. Leger around 0 400 and also with jonathan Fleming Junior around 0405. According to Lonnie patient has been doing well up on arrival at his home with fair appetite but over the past week his appetite has decreased. Also over the last 2 or 3 days nursing staff advised stool softener then some fiber after a large bowel movement occurred and then advise some prune juice. TRAVEL OUTSIDE OF THE [place] IN LAST 30 DAYS: No - HPI Patient complains to provider of: Dark/tarry stools Onset: This evening - Related Data Allergies/Adverse Reactions: No Known Allergies Allergy (Verified 08/22/20 01:59) Past Medical History - Social History Smoking Status: Unknown if Ever Smoked Family History: None, Reviewed & Not Pertinent - Past Medical History Cardiac Medical History: Reports: Hx Atrial Fibrillation - 02/25/17, Hx Congestive Heart Failure Denies: Hx Coronary Artery Disease, Hx Heart Attack, Hx Hypertension Pulmonary Medical History: Denies: Hx Asthma, Hx Bronchitis, Hx COPD, Hx Pneumonia Neurological Medical History: Denies: Hx Cerebrovascular Accident, Hx Seizures Endocrine Medical History: Reports: Hx Diabetes Mellitus Type 2 GI Medical History: Reports: Hx Cirrhosis Musculoskeletal Medical History: Reports Hx Arthritis - RIGHT SHOULDER Psychiatric Medical History: Denies: Hx Depression Past Surgical History: Reports: Hx Abdominal Surgery - Abdominal surgery for ruptured peptic ulcer disease, Hx Orthopedic Surgery - Left AKA, Other - Multiple sinus surgeries. Denies: Hx Pacemaker - Immunizations Hx Diphtheria, Pertussis, Tetanus Vaccination: No Review of Systems - Review of Systems Constitutional: See HPI, Weakness EENT: No symptoms reported Cardiovascular: No symptoms reported Respiratory: No symptoms reported Gastrointestinal: See HPI, Abdominal pain, Black stools Genitourinary: No symptoms reported Male Genitourinary: No symptoms reported Musculoskeletal: No symptoms reported Skin: No symptoms reported Hematologic/Lymphatic: No symptoms reported Neurological/Psychological: See HPI, Weakness Physical Exam - Vital signs Vitals: BP Pulse Ox 94/45 L 94 08/22/20 01:53 08/22/20 01:53 Interpretation: Normal - General General appearance: Appears well, Alert - HEENT Head: Normocephalic, Atraumatic Eyes: Normal Pupils: PERRL - Respiratory Respiratory status: No respiratory distress Chest status: Nontender Breath sounds: Normal Chest palpation: Normal - Cardiovascular Rhythm: Regular Heart sounds: Normal auscultation Murmur: No - Abdominal Inspection: Normal Distension: No distension Bowel sounds: Normal Tenderness: Tender - Lower quadrants on palpation Organomegaly: No organomegaly - Rectal Tenderness: No Stool: Heme positive, Black Hemorrhoids: None - Genitourinary Tenderness: Nontender Scrotum: Normal - Back Back: Normal, Nontender - Extremities General upper extremity: Normal inspection, Nontender, Normal color, Normal ROM, Normal temperature General lower extremity: Normal inspection, Nontender, Normal color, Normal ROM, Normal temperature, Normal weight bearing. No: Mukund's sign - Neurological Neuro grossly intact: Yes Cognition: Normal Orientation: AAOx4 [place] Coma Scale Eye Opening: Spontaneous [place]ah Coma Scale Verbal: Oriented [place] Coma Scale Motor: Obeys Commands [place]ah Coma Scale Total: 15 Speech: Normal Motor strength normal: LUE, RUE, LLE, RLE Sensory: Normal - Psychological Associated symptoms: Normal affect, Normal mood - Skin Skin Temperature: Warm Skin Moisture: Dry Skin Color: Other - Abrasions of upper arms Course - Vital Signs Vital signs: Temp Pulse Resp BP Pulse Ox 97.7 F 89 18 94/45 L 94 08/22/20 02:16 08/22/20 02:16 08/22/20 02:16 08/22/20 02:16 08/22/20 02:16 - Laboratory Result Diagrams: 08/22/20 02:07 08/22/20 02:07 Laboratory results interpreted by me: 08/22/20 08/22/20 08/22/20 02:07 02:07 04:13 RBC 2.80 L Hgb 11.3 L Hct 32.7 L MCV 117 H D MCH 40.5 H Plt Count 133 L Seg Neuts % (Manual) 86 H Lymphocytes % (Manual) 6 L Abs Lymphs (Manual) 0.3 L Sodium 132.4 L Potassium 3.2 L Chloride 93 L Carbon Dioxide 32 H BUN 36 H Creatinine 1.50 H Est GFR ( Amer) 54 L Est GFR (MDRD) Non-Af 44 L Calcium 8.1 L Total Bilirubin 1.6 H Direct Bilirubin 1.1 H AST 65 H Alkaline Phosphatase 196 H Creatine Kinase < 20 L Total Protein 5.3 L Albumin 2.4 L Lipase 18.4 L Urine Protein >=500 H Urine Blood MODERATE H Ur Leukocyte Esterase LARGE H - Diagnostic Test Radiology reviewed: Reports reviewed - EKG Interpretation by Me EKG shows normal: Sinus rhythm Rate: Tachycardia Rhythm: A.Fib - With heart rate 86 bpm with left axis deviation atrial fibrillation with repolarization abnormal suggest ischemia anterior lateral leads and this was read by myself and I agree with the EKG machine. Critical Care Note - Critical Care Note Comments: I discussed this case with Dr. Leger and he advises to keep patient here use some Carafate. The patient had EGD recently with a large stomach culture. He advises continuing with PPI and Pepcid. He also advises behavioral health to evaluate the patient for possible placement for skilled nursing. Patient is on hospice at this time and he is DNR. I discussed I again discussed this case with Dr. Leger at 0 500 and he advises give patient IV antibiotics and then p.o. and place him back home where he is on hospice and DNR. Discharge - Discharge Clinical Impression: Elevated troponin, FTT (failure to thrive) in adult GI bleed Qualifiers: GI bleed type/associated pathology: unspecified gastrointestinal hemorrhage type Qualified Code(s): K92.2 - Gastrointestinal hemorrhage, unspecified Dementia Qualifiers: Dementia type: Alzheimer's disease Alzheimer's disease onset: other onset Dementia behavioral disturbance: without behavioral disturbance Qualified Code(s): G30.8 - Other Alzheimer's disease; F02.80 - Dementia in other diseases classified elsewhere without behavioral disturbance UTI (urinary tract infection) Qualifiers: Urinary tract infection type: catheter-associated UTI Indwelling urinary catheter type: indwelling urethral catheter Encounter type: initial encounter Qualified Code(s): T83.511A - Infection and inflammatory reaction due to indwelling urethral catheter, initial encounter; N39.0 - Urinary tract infection, site not specified Clinical Impression: (Ruled Out): Sepsis Disposition: HOME, SELF-CARE Additional Instructions: Follow-up with home health nurse and with personal doctor this week return to ER as needed take medicines as directed encourage fluids Prescriptions: Levofloxacin [Levaquin 500 mg Tablet] 500 mg PO DAILY #10 tablet Referrals: BREANNE ALY MD [Primary Care Provider] - Follow up as needed
[2020-08-22 02:25] LABS: HEMATOCRIT 32.7 % (37.9-51.0); HEMOGLOBIN 11.3 g/dL (13.5-17.0); MEAN CORPUSCULAR HEMOGLOBIN 40.5 pg (27.0-33.4); MEAN CORPUSCULAR HGB CONC 34.7 g/dL (32.0-36.0); RED CELL DISTRIBUTION WIDTH 13.6 % (11.5-14.0); WHITE BLOOD COUNT 4.7 10^3/uL (4.0-10.5)
[2020-08-22] MEDS ORDERED: NORMAL SALINE 1000 ML 1,000 ML IV ONE ×2 (02:30→04:18)
[2020-08-22 02:34] LABS: INTERNATIONAL RATION (INR) 1.18; PROTHROMBIN TIME 15.2 SEC (11.4-15.4)
[2020-08-22 02:35] LABS: PARTIAL THROMBOPLASTIN TIME 35.8 SEC (23.5-35.8)
[2020-08-22 02:38] LABS: MEAN CORPUSCULAR VOLUME 117 fl (80-97)
[2020-08-22 02:44] LABS: ALBUMIN 2.4 g/dL (3.5-5.0); ALKALINE PHOSPHATASE 196 U/L (38-126); ANION GAP 7 (5-19); ASPARTATE AMINO TRANSFERASE 65 U/L (17-59); BILIRUBIN,DIRECT 1.1 mg/dL (0.0-0.4); BILIRUBIN,TOTAL 1.6 mg/dL (0.2-1.3); BLOOD UREA NITROGEN 36 mg/dL (7-20); CALCIUM 8.1 mg/dL (8.4-10.2); CARBON DIOXIDE 32 mmol/L (22-30); CHLORIDE 93 mmol/L (98-107); CREATINE KINASE < 20 U/L (55-170); GLUCOSE 97 mg/dL (75-110); POTASSIUM 3.2 mmol/L (3.6-5.0); TOTAL PROTEIN 5.3 g/dL (6.3-8.2)
[2020-08-22 02:54] LABS: ABSOLUTE LYMPHOCYTES# (MANUAL) 0.3 10^3/uL (0.5-4.7); ABSOLUTE MONOCYTES # (MANUAL) 0.2 10^3/uL (0.1-1.4); BAND NEUTROPHILS % (MANUAL) 4 % (3-5); BASOPHILS % (MANUAL) 0 % (0-2); EOSINOPHILS % (MANUAL) 0 % (0-6); LYMPHOCYTES % (MANUAL) 6 % (13-45); MONOCYTES % (MANUAL) 4 % (3-13); SEGMENTED NEUTROPHILS % (MAN) 86 % (42-78); TOTAL CELLS COUNTED 100
[2020-08-22 02:55] LABS: TOXIC VACUOLATION PRESENT
[2020-08-22 02:56] LABS: PLATELET CLUMPS PRESENT; PLATELET COMMENT ADEQUATE
[2020-08-22 02:57] LABS: PLATELET COUNT 133 10^3/uL (150-450)
[2020-08-22] MEDS ORDERED: PANTOPRAZOLE SODIUM 40 MG VIAL IV ONE ×3 (03:24→08:30)
[2020-08-22] MEDS ORDERED: FAMOTIDINE INJ/PF 20 MG/2 ML SDV IV ONE ×2 (03:24→08:30)
--- NOTE | 2020-08-22 03:26 | RADIOLOGY REPORT (SQ) ---
CLINICAL HISTORY: abd pain COMPARISON: None. TECHNIQUE: XR ABDOMEN SUPINE AND ERECT WITH CHEST (ABD ACUTE SERIES) 08/22/2020 2:17 AM [facility] FINDINGS: Bowel gas pattern is nonspecific. There are no abnormal radiopaque foreign bodies or abnormal calcifications. Osseous structures are grossly unremarkable. The heart is mildly enlarged. Lungs are clear. There are surgical clips in the midline upper abdomen. IMPRESSION: No bowel obstruction.
[2020-08-22] MEDS ORDERED: SUCRALFATE 1 GM TABLET PO ONE ×3 (04:19→08:30)
[2020-08-22 04:38] LABS: APPEARANCE,URINE TURBID; BILIRUBIN,URINE NEGATIVE (NEGATIVE); COLOR,URINE AMBER; GLUCOSE, URINE NEGATIVE (NEGATIVE); KETONES,URINE NEGATIVE (NEGATIVE); LEUKOCYTE ESTERASE,URINE LARGE (NEGATIVE); NITRITE,URINE NEGATIVE (NEGATIVE); PROTEIN,URINE >=500 mg/dL (NEGATIVE); URINE SPECIFIC GRAVITY 1.014; UROBILINOGEN,URINE NEGATIVE mg/dL (<2.0)
[2020-08-22] MEDS ORDERED: VANCOMYCIN HCL INJ 1000 MG VIAL IV ONE (05:03)
[2020-08-22] MEDS ORDERED: PIPERACILLIN/TAZOBACTAM 3.375 GM VIAL IV ONE (05:04)
[2020-08-22] MEDS ORDERED: THIAMINE HCL 100 MG in NORMAL SALINE 50 ML IV ONE (05:13)
--- NOTE | 2020-08-22 09:20 | EKG REPORT ---
SEVERITY:- ABNORMAL ECG - ATRIAL FIBRILLATION LEFT AXIS DEVIATION REPOL ABNRM SUGGESTS ISCHEMIA, ANT-LAT LEADS : Confirmed by: Oni Moody MD 22-Aug-2020 09:19:20
[2020-08-22] MEDS ORDERED: THIAMINE HCL INJ 200 MG/2 ML VIAL ONE (09:28)
[2020-08-22 13:04] VITALS: BP 88/48
== END 2020-08-22 13:04 | disposition home or self-care (01) ==
LOC: ER 01:42
DX: T83.511A Infection and inflammatory reaction due to indwelling urethral catheter, initial encounter (principal); N39.0 Urinary tract infection, site not specified; Y84.6 Urinary catheterization as the cause of abnormal reaction of the patient, or of later complication, without mention of misadventure at the time of the procedure; R79.89 Other specified abnormal findings of blood chemistry; R62.7 Adult failure to thrive; K92.2 Gastrointestinal hemorrhage, unspecified; F02.80 Dementia in other diseases classified elsewhere, unspecified severity, without behavioral disturbance, psychotic disturbance, mood disturbance, and anxiety; G30.8 Other Alzheimer's disease; Z66 Do not resuscitate
CPT/HCPCS: 93005; 99285; 96361; 96375; 96365; 96366; 96367; 36415; 87040; 82550; 83690; 85025; 85610; 85730; 80053; 81001; 84484; 74022; 93010; C9113; A9270; J3411; J7030; J3370; S0028; J2543